=== PATIENT | female | born 1945 | race Caucasian/White ===

== ENCOUNTER 2023-03-09 11:02 | Outpatient (CLI) | payer MEDICARE, SELFPAY ==
[2023-03-09 11:18] LABS: Basophils Absolute Auto 0.1 K/mm3 (0.0-0.1); Basophils Percent Auto 0.5 % (0.2-1.2); Eosinophils Absolute Auto 0.3 K/mm3 (0-0.3); Eosinophils Percent Auto 3.7 % (0-4.4); Hematocrit 31.4 % (37.0-47.0); Hemoglobin 9.3 g/dL (12.0-15.0); Immature Granulocyte Absolute 0.04 K/mm3 (0.00-0.031); Immature Granulocyte Percent A 0.4 % (0-0.5); Lymphocytes Absolute Auto 0.82 K/mm3 (0.9-3.2); Lymphocytes Percent Auto 8.9 % (18.3-44.2); Mean Corpuscular HGB Conc 29.6 g/dl (32-36); Mean Corpuscular Hemoglobin 24.2 pg (26-34); Mean Corpuscular Volume 81.8 fl (80-100); Mean Platelet Volume 9.3 fl (7.4-10.4); Monocytes Absolute Auto 0.4 K/mm3 (0.1-0.6); Neutrophils Absolute Auto 7.6 K/mm3 (1.3-6.7); Neutrophils Percent Auto 82.5 % (45.5-73.1); Platelet Count Result 431 k/mm3 (150-375); Red Blood Count 3.84 M/mm3 (4.2-5.4); White Blood Count 9.2 K/mm3 (4.5-10.0)
[2023-03-09 11:24] LABS: Anisocytosis 1+ (NORMAL); Microcytosis 1+ (NORMAL); Platelet Estimate Increased (Adequate); Schistocytes None Seen (NORMAL)
[2023-03-09 13:03] LABS: Alanine Aminotransferase 17 U/L (6-35); Alkaline Phosphatase 96 U/L (38-126); Anion Gap 10 mmol/L (8-16); Aspartate Amino Transferase 25 U/L (14-36); Bilirubin,Total 2.6 mg/dL (0.2-1.3); Blood Urea Nitrogen 26 mg/dL (7-17); Calcium 9.2 mg/dL (8.4-10.2); Carbon Dioxide 28 mmol/L (22-30); Chloride 100 mmol/L (98-107); Estimated Glomerular Filt Rate 60; Glucose 183 mg/dL (65-110); Potassium 3.5 mmol/L (3.4-5.0); Sodium 138 mmol/L (137-145)
[2023-03-12 07:45] LABS: CA 15-3 23 U/mL (<32)
== END 2023-03-09 11:03 | disposition home or self-care (01) ==
LOC: ANHLAB 11:04
PROVIDERS: Visit Provider Internal Medicine Hematology & Oncology
DX: C50.919 Malignant neoplasm of unspecified site of unspecified female breast (principal); Z17.0 Estrogen receptor positive status [ER+]
CPT/HCPCS: 36415; 80053; 85025; 86300

== ENCOUNTER 2023-03-16 07:07 | Outpatient (CLI) | payer MEDICARE, SELFPAY ==
--- NOTE | ~2023-03-16 | NM_ITS ---
EXAMINATION: NM bone scan whole body DATE: 03/16/2023 11:20 INDICATION: Breast cancer TECHNIQUE: 26.2 mCi Tc-99m HDP was administered intravenously. Delayed whole-body scintigrams were o btained. COMPARISON: CT chest, abdomen and pelvis dated 03/16/2023 FINDINGS: Mild likely degenerative joint centered uptake at the bilateral acromioclavicular joints. Mild likely enthesopathic uptake at the bilateral anterior tibial tuberosities. No other suspicious foci of abno rmal bone uptake to suggest metastatic disease. Mild lower thoracic dextrocurvature. There is excrete d activity at 8 prominent left extrarenal pelvis. IMPRESSION: 1. No lesion suspicious for osseous metastatic disease. Reviewed, dictated and finalized at location A. UTIVE DIRECTOR [employer]
--- NOTE | ~2023-03-16 | CT_ITS ---
Clinical Indication: Breast cancer CT Scan of the Chest, Abdomen, and Pelvis with Contrast: Technique: Contiguous sections were acquired throughout the chest, abdomen, and pelvis after intraven ous administration of 100 cc of Omnipaque 350. Dose reduction technique was used on this scan by uti lizing automated exposure control and iterative reconstruction technique. The dose-length product (DL P) was 483.66 mGy-cm. Findings: There is right paratracheal lymphadenopathy, largest node measuring up to approximately 1.9 x 1.6 cm. Minimally prominent AP window lymph nodes are present. Mildly prominent subcarinal node pr esent. No pericardial effusion. No aortic aneurysm or dissection seen. No large central pulmonary emb olus. Minimal bilateral pleural effusions are present. There is mild bibasilar interstitial thickening, and possible minimal groundglass opacification the l ungs. The liver, spleen, pancreas, gallbladder, adrenals and kidneys are within normal limits. There are at herosclerotic calcifications of the aorta. No lymphadenopathy. No bowel obstruction or bowel wall thickening. There is no evidence to suggest acute appendicitis. Urinary bladder is unremarkable. No pelvic mass evident. Sclerotic lesion present in the L3 vertebral body. Additional sclerotic lesion present in the intertrochanteric region of the proximal left femur with a more chondroid appearance. Impression: Mediastinal lymphadenopathy, as above, suspicious for metastatic disease given history, until proven otherwise. Sclerotic lesion in the L3 vertebral body, suspicious for osseous metastasis. Additional lesion at the intertrochanteric region of the proximal left ureter, more suggestive a letitia droid lesion, such as enchondroma. Small bilateral pleural effusions with probable minimal pulmonary edema. Reviewed, dictated and finalized at [facility]. ING SUPERVISOR Impression: Mediastinal lymphadenopathy, as above, suspicious for metastatic disease given history, until proven otherwise. Sclerotic lesion in the L3 vertebral body, suspicious for osseous metastasis. Additional lesion at the intertrochanteric region of the proximal left ureter, more suggestive a chondroid lesion, such as enchondroma. Small bilateral pleural effusions with probable minimal pulmonary edema.
== END 2023-03-16 07:08 | disposition home or self-care (01) ==
PROVIDERS: Visit Provider Internal Medicine Hematology & Oncology
DX: C50.919 Malignant neoplasm of unspecified site of unspecified female breast (principal); Z17.0 Estrogen receptor positive status [ER+]; J90 Pleural effusion, not elsewhere classified; R91.8 Other nonspecific abnormal finding of lung field
CPT/HCPCS: 71260; 74177; 78306; A9503; Q9967

== ENCOUNTER 2023-03-23 12:35 | Outpatient (CLI) | payer MEDICARE, SELFPAY ==
[2023-03-23 15:41] LABS: Iron 36 ug/dL (37-170)
[2023-03-23 15:51] LABS: Percent Iron Saturation 8 % (20-50)
[2023-03-23 16:11] LABS: Lactate Dehydrogenase 343 U/L (120-246)
[2023-03-23 17:03] LABS: Folic Acid 7.9 ng/mL (2.76->20)
[2023-03-26 01:28] LABS: Methylmalonic Acid 271 nmol/L (87-318)
[2023-03-30 12:52] LABS: Soluble Transferrin Receptor 6.52 mg/L (0.76-1.76)
== END 2023-03-23 12:36 | disposition home or self-care (01) ==
LOC: ANHLAB 12:36
PROVIDERS: Visit Provider Internal Medicine Hematology & Oncology
DX: D64.9 Anemia, unspecified (principal)
CPT/HCPCS: 36415; 82607; 82728; 82746; 83540; 83550; 83615; 83921; 84238

== ENCOUNTER 2023-04-15 10:48 | Outpatient (CLI) | payer MEDICARE, SELFPAY ==
[2023-04-15 13:05] LABS: Alanine Aminotransferase 17 U/L (6-35); Albumin Level 3.9 g/dL (3.5-5.1); Alkaline Phosphatase 89 U/L (38-126); Anion Gap 7 mmol/L (8-16); Aspartate Amino Transferase 33 U/L (14-36); Bilirubin,Total 1.6 mg/dL (0.2-1.3); Blood Urea Nitrogen 24 mg/dL (7-17); Calcium 9.3 mg/dL (8.4-10.2); Carbon Dioxide 27 mmol/L (22-30); Chloride 98 mmol/L (98-107); Estimated Glomerular Filt Rate 60; Glucose 160 mg/dL (65-110); Potassium 3.9 mmol/L (3.4-5.0); Sodium 132 mmol/L (137-145)
== END 2023-04-15 10:49 | disposition home or self-care (01) ==
LOC: ANHGOSHLAB 10:50
PROVIDERS: PCP Nurse Practitioner; Visit Provider Family Medicine
DX: R14.0 Abdominal distension (gaseous) (principal); R22.43 Localized swelling, mass and lump, lower limb, bilateral; Z79.899 Other long term (current) drug therapy
CPT/HCPCS: 36415; 80053

== ENCOUNTER 2023-04-15 11:36 | Outpatient (CLI) | payer MEDICARE, SELFPAY ==
--- NOTE | ~2023-04-15 | US_ITS ---
EXAMINATION: US venous doppler [facility] DATE: 04/15/2023 12:53 INDICATION: Lower limb swelling TECHNIQUE: De Luna scale images without and with compression and Doppler images of the bilateral lower e xtremity veins were obtained. COMPARISON: None FINDINGS: The visualized portions of the right common femoral vein, profunda femoral vein, femoral vein, poplit eal vein, peroneal trunk, posterior tibial veins, and greater saphenous vein are patent. Portions of the proximal right posterior tibial vein and peroneal veins are not visualized due to edema. The left common femoral vein, profunda femoral vein, femoral vein, popliteal vein, peroneal trunk, po sterior tibial veins, and greater saphenous vein are patent. IMPRESSION: 1. Patent bilateral lower extremity veins. No evidence of deep venous thrombosis. Reviewed, dictated and finalized at location B. STAPLER IMPRESSION: 1. Patent bilateral lower extremity veins. No evidence of deep venous thrombosi s.
== END 2023-04-15 11:37 | disposition home or self-care (01) ==
LOC: ANHIMG 11:36
PROVIDERS: PCP Nurse Practitioner; Visit Provider Family Medicine
DX: R22.43 Localized swelling, mass and lump, lower limb, bilateral (principal); M79.604 Pain in right leg; M79.605 Pain in left leg
CPT/HCPCS: 36415; 80053; 93970

== ENCOUNTER 2023-04-21 13:39 | Outpatient (CLI) | payer MEDICARE, SELFPAY ==
--- NOTE | ~2023-04-21 | CT_ITS ---
EXAMINATION: CT abdomen pelvis wo con DATE: 04/21/2023 14:05 INDICATION: Gaseous abdominal distention TECHNIQUE: Computed tomography (CT) of the abdomen and pelvis was performed without intravenous contr ast. Automated exposure control and iterative reconstruction technique were employed. The dose-length product was 935.67 mGy-cm. COMPARISON: CT and bone scan dated 03/16/2023 FINDINGS: Small bilateral posterior layering pleural effusions, right greater than left. Groundglass opacities and smooth septal line thickening at the bilateral lung bases consistent with mild pulmonary edema. C ardiomegaly with atherosclerotic coronary artery calcific lesions. Venous sternotomy and changes of p rior aortic valve and mitral valve repairs. Retained epicardial pacemaker leads. No pericardial effus ion. Extensive body wall edema. Small amount of ascites predominantly perisplenic and below the left hemid iaphragm. There are couple small calcified gallstones in the dependent aspect of the partially decomp ressed gallbladder. There is low-density edematous gallbladder wall thickening versus small amount of pericholecystic fluid but no dilation of the gallbladder to more specifically suggest acute cholecys titis. Spleen, pancreas, bilateral adrenal glands and right kidney are normal. There is a mildly dila wilda left external pelvis but without dilation of the calyces to suggest hydronephrosis. No evident ur olithiasis. Moderate amount of stool scattered throughout the colon. No dilated bowel to suggest obst ruction. Bladder is normal. Uterus and bilateral adnexa are unremarkable. Severe lower lumbar spondylosis. Indeterminate 1.5 cm sclerotic lesion in the L3 vertebral body. More poorly defined approximately 2.4 x 2.1 x 1.4 similar sclerotic lesion at the intratrochanteric proxi mal left femur with ring and arc-like configuration of the sclerosis suggesting chondroid matrix in t he setting of enchondroma. There is a tiny dense sclerotic bone islands at the right femoral head. IMPRESSION: 1. Likely congestive heart failure with cardiomegaly, mild pulmonary edema or lung bases, diffuse bod y wall edema, small bilateral pleural effusions and small amount of ascites. 2. Cholelithiasis with mild gallbladder wall thickening versus small amount of pericholecystic fluid which in the absence of dilation the gallbladder is more likely related to congestive heart failure t vaca acute cholecystitis. Correlate for Herr and if clinically indicated could consider HIDA scan fo r further evaluation. 3. Indeterminate but likely benign sclerotic lesions at L3 and at the intratrochanteric left femur, t he latter with appearance suggestive of an enchondroma in both without uptake to suggest malignancy o n prior bone scan. Reviewed, dictated and finalized at location L. IMPRESSION: 1. Likely congestive heart failure with cardiomegaly, mild pulmonary edema or l kevin bases, diffuse body wall edema, small bilateral pleural effusions and small amount of ascites. 2. Cholelithiasis with mild gallbladder wall thickening versus small amount of pericholecystic fluid which in the absence of dilation the gallbladder is more likely related to congestive heart failure than acute cholecystitis. Correlate for Herr and if clinically indicated could consider HIDA scan for further js luation. 3. Indeterminate but likely benign sclerotic lesions at L3 and at the intratroc hanteric left femur, the latter with appearance suggestive of an enchondroma in both without uptake to suggest malignancy on prior bone scan.
[2023-04-21 16:33] LABS: Sodium 130 mmol/L (137-145)
[2023-04-21 16:44] LABS: Anion Gap 8 mmol/L (8-16); Blood Urea Nitrogen 29 mg/dL (7-17); Calcium 8.9 mg/dL (8.4-10.2); Carbon Dioxide 25 mmol/L (22-30); Chloride 97 mmol/L (98-107); Estimated Glomerular Filt Rate 53; Glucose 171 mg/dL (65-110); Potassium 3.8 mmol/L (3.4-5.0)
== END 2023-04-21 13:40 | disposition home or self-care (01) ==
PROVIDERS: PCP Family Medicine; Visit Provider Nurse Practitioner
DX: R14.0 Abdominal distension (gaseous) (principal); E87.1 Hypo-osmolality and hyponatremia; K80.20 Calculus of gallbladder without cholecystitis without obstruction
CPT/HCPCS: 36415; 74176; 80048

== ENCOUNTER 2023-04-26 12:29 | Inpatient (IN) | payer MEDICARE, SELFPAY ==
[2023-04-26] VITALS (57 sets, daily range): BP systolic 93–117; BP diastolic 64–94; PULSE 0–125; RESP 13–96; TEMP 36.3; O2SAT 91–100; BMI 32.0
--- NOTE | ~2023-04-26 | XR_ITS ---
XR chest 2V DATE: 04/26/2023 14:31 INDICATION: Shortness of breath TECHNIQUE: AP and lateral views COMPARISON: March 16, 2023 CTA chest abdomen pelvis FINDINGS: Cardiomegaly. Status post sternotomy. Aortic and mitral valve replacements. Small bilateral pleural effusions. Mild prominence of the fissures suggesting subpleural edema. Kerle y B-lines are suggested, which would be compatible with pulmonary interstitial edema. There is minimal infiltrate or atelectasis at the lung bases primarily. No pneumothorax. Osteopenia. Dextroscoliosis of the thoracolumbar spine. IMPRESSION: Mild congestive heart failure including subpleural and pulmonary interstitial edema, smal l pleural effusions Status post sternotomy and aortic and mitral valve replacements Reviewed, dictated and finalized at location L. IMPRESSION: Mild congestive heart failure including subpleural and pulmonary in terstitial edema, small pleural effusions Status post sternotomy and aortic and mitral valve replacements
--- NOTE | ~2023-04-26 | CT_ITS ---
EXAMINATION: CT brain wo con DATE: 04/26/2023 22:59 INDICATION: cognitive decline, breast CA . TECHNIQUE: Computed tomography (CT) of the head was performed without intravenous contrast. The mA wa s adjusted according to patient size. Iterative reconstruction technique was employed. The dose-lengt h product was 1135.00 mGy-cm. COMPARISON: None. FINDINGS: Motion artifact present which persisted in repeated imaging attempts. The superior portion of the sku ll vertex is excluded from the [id number]. No acute intracranial hemorrhage or extra-axial fluid collection. No hydrocephalus, mass, or herniation. No acute ischemic infarct. Unremarkable dural venous sinus attenuation. No acute osseous abnormality. The aerated spaces are clear. Moderate atrophy and chronic white matter change. Atherosclerotic intracranial calcification. Bilater al lens replacements. IMPRESSION: No acute intracranial process. Reviewed, dictated and finalized at location K.
--- NOTE | 2023-04-26 13:49 | ECG_ITS ---
Measurements Intervals [place] Rate: 119 P: DC: 0 QRS: -31 QRSD: 85 T: 25 QT: 328 QTc: 462 Interpretive Statements ATRIAL FIBRILLATION WITH RAPID VENTRICULAR RESPONSE LEFT AXIS DEVIATION DELAYED PRECORDIAL R/S TRANSITION BORDERLINE ST-T WAVE ABNORMALITY- DIFFUSE LEADS BASELINE WANDER- I, II, III, AVR, AVL, AVF ABNORMAL ECG NO PREVIOUS ECG AVAILABLE FOR COMPARISON Electronically Signed On 04-26-2023 14:32:12 CDT by Krishna Arteaga D.O.
[2023-04-26 14:21] LABS: Basophils Absolute Auto 0.1 K/mm3 (0.0-0.1); Basophils Percent Auto 1.5 % (0.2-1.2); Eosinophils Absolute Auto 0.1 K/mm3 (0-0.3); Eosinophils Percent Auto 2.2 % (0-4.4); Hematocrit 38.5 % (37.0-47.0); Hemoglobin 11.7 g/dL (12.0-15.0); Immature Granulocyte Absolute 0.01 K/mm3 (0.00-0.031); Immature Granulocyte Percent A 0.2 % (0-0.5); Lymphocytes Absolute Auto 0.86 K/mm3 (0.9-3.2); Lymphocytes Percent Auto 18.9 % (18.3-44.2); Mean Corpuscular HGB Conc 30.4 g/dl (32-36); Mean Corpuscular Hemoglobin 26.1 pg (26-34); Mean Corpuscular Volume 85.9 fl (80-100); Mean Platelet Volume 10.1 fl (7.4-10.4); Monocytes Absolute Auto 0.3 K/mm3 (0.1-0.6); Monocytes Percent Auto 6.4 % (2.6-8.5); Neutrophils Absolute Auto 3.2 K/mm3 (1.3-6.7); Neutrophils Percent Auto 70.8 % (45.5-73.1); Platelet Count Result 207 k/mm3 (150-375); Red Blood Count 4.48 M/mm3 (4.2-5.4); Red Cell Distribution Width 27.1 % (11.5-14.5); White Blood Count 4.6 K/mm3 (4.5-10.0)
[2023-04-26 14:33] LABS: Alanine Aminotransferase 16 U/L (6-35); Albumin Level 3.6 g/dL (3.5-5.1); Alkaline Phosphatase 85 U/L (38-126); Anion Gap 9 mmol/L (8-16); Aspartate Amino Transferase 25 U/L (14-36); Bilirubin,Total 1.6 mg/dL (0.2-1.3); Blood Urea Nitrogen 27 mg/dL (7-17); Calcium 8.8 mg/dL (8.4-10.2); Carbon Dioxide 26 mmol/L (22-30); Chloride 97 mmol/L (98-107); Estimated CRCL calculation 35 ml/min; Estimated Glomerular Filt Rate 48; Glucose 179 mg/dL (65-110); Potassium 3.7 mmol/L (3.4-5.0); Sodium 132 mmol/L (137-145)
[2023-04-26 14:34] LABS: Partial Thromboplastin Time 43.4 Seconds (22.3-36.8); Prothrombin Time 24.5 Seconds (11.1-14.7)
[2023-04-26 14:44] LABS: NT Pro B Type Natriuretic Pept 13600 pg/mL (19.9-100); Troponin I 0.024 ng/mL (0.000-0.034)
[2023-04-26 14:46] LABS: Anisocytosis 2+; Platelet Estimate Adequate (Adequate); Poikilocytosis 1+; Schistocytes Rare
--- NOTE | 2023-04-26 15:17 | ED.SOB ---
HPI - SOB/Dyspnea General Chief Complaint: Shortness of Breath/Dyspnea Stated Complaint: short of breath, fluid build up Time Seen by Provider: 04/26/23 13:29 History of Present Illness HPI Narrative: patient is a 77-year-old female with a history of AFib on Eliquis, CHF, mitral and aortic valve replacement, hypothyroidism, diabetes presenting with shortness of breath. Patient's niece is at bedside and helps with the history. States that she has been increasingly short of breath especially with exertion. She has been gaining we in retaining fluid. Her PCP recently started her on an increased dose of Lasix But she continues to have swollen legs. States that she has also had a dry cough which is just started some diffuse mild chest discomfort. Denies chest pain, lightheadedness, fevers or chills, abdominal pain, nausea vomiting, diarrhea, dysuria. Related Data Home Medications Medication Instructions Recorded Confirmed glipizide 10 mg tablet 15 mg PO DAILY 01/05/23 04/26/23 ferrous sulfate 325 mg (65 mg 325 mg PO DAILY 04/07/23 04/26/23 iron) tablet (Feosol) loratadine 10 mg tablet (Claritin) 10 mg PO DAILY PRN Allergy Symptoms 04/07/23 04/26/23 ribociclib 200 mg/day (200 mg x 1) See Rx Instructions .Route .COMPLEX 04/07/23 04/26/23 and letrozole 2.5 mg tablet apixaban 5 mg tablet 5 mg PO DAILY 04/26/23 04/26/23 aspirin 81 mg chewable tablet 81 mg PO PRN PRN Chest Pain 04/26/23 04/26/23 (Aspirin Childrens) fluticasone propionate 50 1 spray intranasal Q12HR PRN 04/26/23 04/26/23 mcg/actuation nasal Congestion spray,suspension Allergies Allergy/AdvReac Type Severity Reaction Status Date / Time codeine Allergy Unknown Hallucinati Verified 04/26/23 13:29 ng doxycycline Allergy Unknown Unknown Verified 04/26/23 13:29 trimethobenzamide Allergy Unknown Nausea and Verified 04/26/23 13:29 Vomiting Review of Systems Review of Systems: All systems reviewed & are unremarkable except as noted in HPI and below PMFSH Past Medical History Medical History (Updated 04/29/23 @ 22:11 by Sara Alejandro MD) Breast cancer 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 Patient declined surgery. She has been treated with letrozole. She was seen as a new patient by oncologist Dr. Justin Crisostomo on 03/09/2023 who rec she resume the letrozole, which had been stopped 09/2022 for unknown reasons. Chronic anticoagulation Cognitive dysfunction Hyperlipidemia Hypertension Paroxysmal atrial fibrillation Type 2 diabetes mellitus Valvular heart disease Surgical History Surgical History (Updated 04/27/23 @ 14:58 by Yumiko Amos MD) History of aortic valve replacement with bioprosthetic valve History of left atrial appendage closure History of mitral valve replacement with bioprosthetic valve Family History Family History Mother Heart disease Father Cancer Sibling Cancer Social History Social History (Updated 04/27/23 @ 14:53 by Yumiko Amos MD) Social History: . No children. 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 Healthcare power of contracts attorney: Camilo Rosa, niece. Code status: Full code. Smoking status: Never smoker Second hand tobacco smoke exposure: No Alcohol intake: never Substance use: never Substance use type: does not use Do You Feel Safe in your Home?: Yes Lack of Transportation: No Lack of Food: Never True Current Housing: I Have Housing Concerned About Future Housing: No Difficulty Paying Gas/Electric Bills: No Difficulty Paying for Meds: No Currently Unemployed: No Education: Bachelor's Degree Difficulty w/ Childcare or Family Care: No Additional living arrangements comments: Currently staying with [id number] in [place]. She has no children. 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
[2023-04-26] MEDS: METOPROLOL TARTRATE INJ 5 MG/5 ML VIAL IV PUSH (15:25)
--- NOTE | 2023-04-26 22:12 | PM.IMHP ---
H&P: HPI History of Present Illness Date/Time: 04/26/23 16:45 Chief Complaint: Shortness of breath and swelling. Narrative: This is a pleasant 77-year-old female paroxysmal atrial fibrillation on chronic anticoagulation, valvular heart disease status post bioprosthetic aortic and mitral valve replacements, stage IV breast cancer, iron deficiency anemia, type 2 diabetes mellitus, and hypothyroidism who presented to the emergency department accompanied by her niece (Camilo Rosa, POA) with complaints of shortness of breath and swelling. Cmailo provides majority of the following history as the patient is a poor historian. The patient lives in [place] and has always been very private. Her brother last fall at which time family members noted that the patient did not seem to be caring for herself and seemed to be ignoring her health conditions. They moved her to [place] and are attempting to get her into an assisted living facility but she is currently living with her [id number]. Over the last month and a half for so the patient has gained approximately 20 lb and she has significant lower extremity edema which is now extending up into the abdomen. She is getting short of breath with everyday activities around the home and family members note that she has been getting up 3 or 4 times at night the last several days, presumably due to orthopnea. She was previously evaluated by her primary care provider couple of weeks ago at which time she had bilateral lower extremity venous Doppler ultrasounds (negative for DVT) and CT of the abdomen and pelvis which showed diffuse body wall edema, pleural effusions, cardiomegaly, and pulmonary edema. Her Lasix dose was doubled however she continues to have increasing shortness of breath and was brought in for evaluation. The patient has no complaints. She denies headache, fever, chills, sweats, chest pain, pleuritic pain, palpitations, nausea, vomiting, diarrhea, dysuria, and calf pain. In the ED: She was afebrile on arrival. She has been in atrial fibrillation with rates in the 90s to low 100s. Labs were significant for a hemoglobin of 11.7, INR 2.0, sodium 132, chloride 97, BUN 27, creatinine 1.10, glucose 179, total bilirubin 1.6, proBNP 22220. Chest x-ray showed mild congestive heart failure. She was given 5 mg IV metoprolol tartrate and she is being admitted in this setting for further treatment. Review of Systems Review of Systems: Twelve systems were reviewed but are limited as she has evidence of cognitive dysfunction and she is a poor historian. She stated no to every question asked of her. [facility] Past Medical History Medical History (Updated 04/26/23 @ 22:34 by Sakshi Adamson PA-C) Breast cancer Chronic anticoagulation Cognitive dysfunction Hyperlipidemia Hypertension Paroxysmal atrial fibrillation Type 2 diabetes mellitus Surgical History Surgical History (Updated 04/26/23 @ 22:30 by Sakshi Adamson PA-C) History of aortic valve replacement with bioprosthetic valve History of left atrial appendage closure History of mitral valve replacement with bioprosthetic valve Family History Family History Mother Heart disease Father Cancer Sibling Cancer Social History Social History (Updated 04/26/23 @ 22:31 by Sakshi Adamson PA-C) Social History: Healthcare power of watch technician: nilesh Danielle. Code status: Full code. Smoking status: Never smoker Second hand tobacco smoke exposure: Yes Alcohol intake: never Substance use: never Substance use type: does not use Additional living arrangements comments: Currently staying with [id number] in [place]. She has no children. 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 Spiritual care concerns: No Meds Home Medications and Allergies Home Medications Medication Instructions Recorded Confirme
--- NOTE | 2023-04-26 23:10 | ADMGEN ---
This patient, Charito Rey, was admitted to IMU Room 206-01. Patient/family oriented to hospital policies and general routines including ID bracelet, bed and alarms, visiting hours, pain management, procedures, bathroom and other care routines, personal items, smoking policy, room service/diet, and visiting hours. Information on how to activate the Rapid Response Team has been discussed. Patient/Family are encouraged to report perceived risks to care and to ask questions if they do not understand what they are told or what they should do.
[2023-04-27] VITALS (22 sets, daily range): BP systolic 96–152; BP diastolic 62–93; PULSE 78–124; RESP 18–22; TEMP 36.1–36.7; O2SAT 92–100
--- NOTE | 2023-04-27 | ECHO_ITS ---
Patient Info Name: Charito Rey Age: 77 years : 1945 Gender: Female Ht: 62 in Wt: 145 lbs BSA: 1.71 m2 HR: 106 bpm BP: 143 / 92 mmHg Heart Rhythm: Atrial Fibrillation Technical Quality: Fair Exam Date: 04/27/2023 10:39 AM Exam Location: Echo Lab Patient Status: Inpatient Admit Date: 04/26/2023 Staff Ordering Physician: Sakshi Adamson PA-C Glaze Sprayer: Sada Ramos RDCS Attending Provider: Jesús Cheung MD Referring Physician: Snow LIANG; Exam Type: CA echo dop color flow w con Study Info Indications - CHF Complete two-dimensional, color flow and Doppler transthoracic echocardiogram is performed with contrast to opacify the left ventricle and to improve the deliniation of the left ventricle endocardial borders. Contrast/Agitated Saline Contrast/Ag. Saline: Definity Amount: 2.00 ml Summary 1. Normal left ventricular size and thickness with moderate global hypokinesis. Visual ejection fraction is 40-45%, calculated 47%. Grade 2 diastolic dysfunction is present. 2. Moderate right ventricular enlargement and hypokinesis. 3. Left atrial chamber dimension is severely enlarged. 4. The bioprosthetic aortic valve appears normal. The V max is 1.4 M/S with an EMIR of 1.7-2.2 cm 2. No regurgitation seen. 5. The bioprosthetic mitral valve appears normal, with no stenosis. Trivial mitral regurgitation. 6. There is mild to moderate tricuspid valve regurgitation. 7. Moderate pulmonary hypertension, estimated pulmonary arterial systolic pressure is 57 mmHg. 8. Atrial fibrillation. Left Ventricle Left ventricular chamber dimension is normal. Left ventricular systolic function is moderately reduced, estimated at 40-45%. There is no increased left ventricular wall thickness. Left ventricular septal wall motion is normal. The left ventricular diastolic function is grade II diastolic dysfunction. Right Ventricle Right ventricular chamber dimension is moderately enlarged. Right ventricular systolic function is reduced. Left Atria Left atrial chamber dimension is severely enlarged. Right Atria Right atrial chamber dimension is normal. Aortic Valve The bioprosthetic aortic valve is trileaflet. There is no sclerosis of the bioprosthetic aortic valve leaflets. There is no bioprosthetic aortic valve stenosis. There is no regurgitation of the bioprosthetic aortic valve. Pulmonic Valve The pulmonic valve is normal. There is no pulmonic valve stenosis. There is no pulmonic regurgitation. Mitral Valve The bioprosthetic mitral valve leaflefts are Empty. There is no stenosis of the bioprosthetic mitral valve. There is trace regurgitation of the bioprosthetic mitral valve. Tricuspid Valve The tricuspid valve leaflets are normal. There is no significant tricuspid valve stenosis. There is mild to moderate tricuspid valve regurgitation. Moderate pulmonary hypertension, estimated pulmonary arterial systolic pressure is 57 mmHg. Pericardium/Pleural The pericardium appears normal. There is no pericardial effusion. Inferior Vena Cava Not well visualized inferior vena cava with >50% collapse upon inspiration consistent with Empty right atrial pressure, 10 mmHg. Aorta The aortic root size at the sinus of Valsalva is not well visualized. The prox ascending aorta size is normal. Left Ventricular Outflow Tract Name Value Normal
[2023-04-27 00:03] LABS: Hemoglobin A1C 7.2 % (<5.7)
[2023-04-27] MEDS: FUROSEMIDE INJ 40 MG/4 ML VIAL IV PUSH ×2 (00:45→09:56)
[2023-04-27] MEDS: traZODone HCL 50 MG TABLET PO ×2 (02:11→20:47)
[2023-04-27] MEDS: APIXABAN 5 MG TABLET PO ×3 (02:12→20:46)
[2023-04-27 05:11] LABS: Basophils Absolute Auto 0.1 K/mm3 (0.0-0.1); Basophils Percent Auto 0.8 % (0.2-1.2); Eosinophils Absolute Auto 0.1 K/mm3 (0-0.3); Eosinophils Percent Auto 0.8 % (0-4.4); Hematocrit 38.7 % (37.0-47.0); Hemoglobin 12.6 g/dL (12.0-15.0); Immature Granulocyte Absolute 0.02 K/mm3 (0.00-0.031); Immature Granulocyte Percent A 0.3 % (0-0.5); Lymphocytes Absolute Auto 0.85 K/mm3 (0.9-3.2); Lymphocytes Percent Auto 14.2 % (18.3-44.2); Mean Corpuscular HGB Conc 32.6 g/dl (32-36); Mean Corpuscular Hemoglobin 30.1 pg (26-34); Mean Corpuscular Volume 92.4 fl (80-100); Mean Platelet Volume 10.6 fl (7.4-10.4); Monocytes Absolute Auto 0.4 K/mm3 (0.1-0.6); Monocytes Percent Auto 5.9 % (2.6-8.5); Neutrophils Absolute Auto 4.7 K/mm3 (1.3-6.7); Platelet Count Result 209 k/mm3 (150-375); Red Blood Count 4.19 M/mm3 (4.2-5.4); Red Cell Distribution Width 29.8 % (11.5-14.5)
[2023-04-27 05:27] LABS: Alanine Aminotransferase 19 U/L (6-35); Albumin Level 3.8 g/dL (3.5-5.1); Alkaline Phosphatase 100 U/L (38-126); Anion Gap 8 mmol/L (8-16); Aspartate Amino Transferase 29 U/L (14-36); Bilirubin,Total 2.2 mg/dL (0.2-1.3); Blood Urea Nitrogen 25 mg/dL (7-17); Calcium 9.1 mg/dL (8.4-10.2); Carbon Dioxide 28 mmol/L (22-30); Chloride 97 mmol/L (98-107); Estimated CRCL calculation 39 ml/min; Estimated Glomerular Filt Rate 53; Glucose 133 mg/dL (65-110); Potassium 3.8 mmol/L (3.4-5.0); Sodium 133 mmol/L (137-145)
[2023-04-27] MEDS: LEVOTHYROXINE SODIUM 25 MCG TABLET PO (05:34)
[2023-04-27 05:39] LABS: Anisocytosis 1+; Hypochromasia 1+; Ovalocytes 1+; Platelet Estimate Adequate (Adequate); Poikilocytosis 1+; Schistocytes None Seen
[2023-04-27 08:53] LABS: Glucose Point of Care 173 mg/dl (65-105)
[2023-04-27] MEDS: METOPROLOL TARTRATE 25 MG TABLET PO ×2 (09:52→20:46)
[2023-04-27] MEDS: PRAVASTATIN SODIUM 20 MG TABLET PO (09:53)
[2023-04-27] MEDS: POTASSIUM CHLORIDE 20 MEQ ER TABLET PO (09:53)
[2023-04-27] MEDS: FERROUS SULFATE 325 MG TABLET DR BY MOUTH (09:53)
--- NOTE | 2023-04-27 10:30 | PM.CNCAR ---
Assessment and Plan Assessment and plan (1) Combined systolic and diastolic congestive heart failure: Code(s): I50.40 - Unspecified combined systolic (congestive) and diastolic (congestive) heart failure Status: Acute Assessment and Plan: Pt presents w/ acute on chronic systolic and diastolic CHF, and moderate LV dysfunction, EF 40-45%. She had normal LV function on discharge from [facility] in December, when she was discharged on treatment for her AFib. I suspect the LV dysfunction as a tachycardia induced cardiomyopathy due to uncontrolled atrial fibrillation. She does not seem to be diuresing well so I will increase her diuretics, and controller AFib rate better. --increase furosemide to 60 mg IV push b.i.d. --daily BMP --increased beta-melina as tolerated --at other CHF meds as BP tolerates. (2) Atrial fibrillation with rapid ventricular response: Code(s): I48.91 - Unspecified atrial fibrillation Status: Acute Assessment and Plan: AFib diagnosed in November, which appears persistent. As mentioned above she was discharged from [place] after surgery on metoprolol and diltiazem but that seems to have been discontinued she is at some point. She now has AFib RVR. --continue Eliquis --metoprolol 5 mg IV push q.4 hours --may need IV amiodarone or diltiazem for heart rate control if this does not help. (3) History of mitral valve replacement with bioprosthetic valve: Code(s): Z95.3 - Presence of xenogenic heart valve Status: Acute Assessment and Plan: History of bioprosthetic mitral valve for mitral stenosis, normal function by echo. (4) History of aortic valve replacement with bioprosthetic valve: Code(s): Z95.3 - Presence of xenogenic heart valve Status: Acute Assessment and Plan: History of bioprosthetic aortic valve replacement, normal function. History of Present Illness History of Present Illness Consult date/time: 04/27/23 10:30 Reason For Visit: Afib RVR Narrative: Charito Rey is a 77 y.o. female whom we were asked to see by KY Mathew, for advice and opinion regarding her AFib RVR and CHF exacerbation, in consultation. She has a history of valvular heart disease, persistent atrial fibrillation, diabetes, stage IV breast cancer (diagnosed in 2022), iron deficiency anemia. The patient was admitted to [facility] with COVID in November 2022 and found to have atrial fibrillation, severe mitral stenosis as well as moderate aortic stenosis. She had transient complete heart block intraoperatively. She underwent mitral and aortic valve replacement, and ligation of the left atrial appendage, at [facility] in December 2022. NICOLASA showed normal LV function, mild RV enlargement and hypokinesis and good valve function. TTE showed normal LV size and function, EF 55-60% with normal RV function, moderate left atrial enlargement, normal bioprosthetic aortic and mitral valve replacements, mild tricuspid regurgitation and mild pulmonary hypertension. She was discharged from [facility] 01/05/2023 with persistent atrial fibrillation, taking diltiazem 120 mg daily and metoprolol 50 mg b.i.d. but on arrival to our rehab, these medications were not listed. She was discharged from our rehab unit on February 03, 2023. Ms. Prasanna kaufman came to the emergency room on 04/26/2023 with increasing edema and shortness of breath with and PND. She has gained 20 lb. Her Lasix dose was transiently doubled without improvement. LE doppler as OPT was neg for DVT. She was admitted with CHF and AFib RVR. Heart rate has been 115-120 through the night she was started furosemide 40 mg IV push b.i.d. She was given a dose of IV metoprolol and started on metoprolol tartrate 25 mg b.i.d. Blood pressures been stable and she is on room air. Patient states she is not making urine even with furosemide g IV push b.i.d.. Patient is a fuzzy historian, unclear about dates and nonspecific. Some of hx
[2023-04-27] MEDS: PERFLUTREN LIPID MICROSPHERES 1.5 ML VIAL DILUTED TO 10 ML TOTAL VOLUME IV PUSH (11:15)
--- NOTE | 2023-04-27 11:39 | IVDEFINITY ---
Prior to administration of IV Definity the patient was educated on the risks and benefits of the imaging enhancing agent including potential adverse side effects. The patient verbalized understanding. Allergies were verified. No exclusion criteria were identified and at least one of the following inclusion criteria were met: 1) physician request, 2) patient technically difficult to image (per the [place] [employer] guidelines of two or more segments not discernable within the apical view), or 3) questionable left ventricular function. ?
[2023-04-27 12:09] LABS: Glucose Point of Care 179 mg/dl (65-105)
--- NOTE | 2023-04-27 15:15 | PM.IMPN ---
Progress Note: A&P Assessment and Plan (1) History of mitral valve replacement with bioprosthetic valve: Code(s): Z95.3 - Presence of xenogenic heart valve Status: Acute (2) Combined systolic and diastolic congestive heart failure: Code(s): I50.40 - Unspecified combined systolic (congestive) and diastolic (congestive) heart failure Status: Acute (3) Renal insufficiency: Code(s): N28.9 - Disorder of kidney and ureter, unspecified Status: Acute (4) Atrial fibrillation with rapid ventricular response: Code(s): I48.91 - Unspecified atrial fibrillation Status: Acute Plan 77-year-old female paroxysmal atrial fibrillation on chronic anticoagulation, valvular heart disease status post bioprosthetic aortic and mitral valve replacements, stage IV breast cancer, iron deficiency anemia, type 2 diabetes mellitus, and hypothyroidism who presented to the emergency department?with worsening SOB, leg swelling 1. Acute on chronic CHF exacerbation: Continue with IV diuresis Strict in's and out's Daily weight Await Cardiology input 2. AFib with RVR: Will start on low-dose metoprolol Continue with Eliquis Await echocardiogram 3. Diabetes mellitus: Hold glipizide Blood glucose check t.i.d. a.c. HS Continue with sliding scale insulin 4.? delirium versus mild cognitive impairment: Will monitor closely 5. DVT prophylaxis on Eliquis 6. Code status: Full 7. Disposition: Pending improvement Time Spent With Patient Time with patient: 15 - 25 minutes Subjective Date/time seen: 04/27/23 15:15 Interval history: No acute events overnight Review of Systems Review of Systems: . All systems reviewed & are unremarkable except as noted in HPI and below Exam Narrative: General: Chronically ill-appearing female HEENT: PERRL, EOMI. Sclera anicteric. Oral mucosa moist. Neck: Supple. No JVD. Respiratory: Respirations are nonlabored and she is speaking in full sentences. She does appear to get a bit winded when adjusting herself in bed but that is brief. Crackles heard at both bases. Cardiovascular: Irregularly irregular rate and rhythm. Systolic murmurs heard at the apex and upper sternal border. Gastrointestinal: Abdomen is protuberant and nontender with positive bowel sounds. Skin: Warm and dry. Faint erythema of the lower legs due to significant swelling. Extremities: No cyanosis or clubbing. Tense pitting edema to the thighs bilaterally. No palpable knots or cords. Negative Ulisses sign bilaterally. Peripheral pulses palpable. Neurological: Alert and oriented x1. Cranial nerves 2-12 are grossly intact. Speech is clear. No facial asymmetry. No gross focal deficits to casual conversation. Psychiatric:calm. Objective Data Vital Signs Vital Signs: Vital Signs - 24 hr 04/26/23 15:25 04/26/23 15:46 04/26/23 15:47 Temperature Pulse Rate 125 H Respiratory Rate 96 H Blood Pressure 108/84 Pulse Oximetry 100 95 Oxygen Delivery 04/26/23 16:00 04/26/23 16:01 04/26/23 16:15 Temperature Pulse Rate Respiratory Rate Blood Pressure Pulse Oximetry 94 97 99 Oxygen Delivery 04/26/23 16:16 04/26/23 16:30 04/26/23 16:31 Temperature Pulse Rate 107 H 89 Respiratory Rate 28 H Blood Pressure 104/75 100/80 Pulse Oximetry 94 91 97 Oxygen Delivery 04/26/23 16:45 04/26/23 16:46 04/26/23 17:00 Temperature Pulse Rate 99 103 H 119 H Respiratory Rate 37 H 34 H Blood Pressure 117/85 Pulse Oximetry 97 97 96 Oxygen Delivery 04/26/23 17:53 04/26/23 18:00 04/26/23 18:15 Temperature Pulse Rate 114 H 120 H 111 H Respiratory Rate 17 18 16 Blood Pressure Pulse Oximetry Oxygen Delivery 04/26/23 18:30 04/26/23 18:43 04/26/23 18:45 Temperature Pulse Rate 96 116 H 104 H Respiratory Rate 13 30 H Blood Pressure 97/81 L Pulse Oximetry 96 Oxygen Delivery 04/26/23 18:46 04/26/23 18:47
[2023-04-27] MEDS: METOPROLOL TARTRATE INJ 5 MG/5 ML VIAL IV PUSH ×2 (18:17→20:47)
[2023-04-27] MEDS: FUROSEMIDE INJ 40 MG/4 ML VIAL 60 MG IV PUSH (18:18)
[2023-04-27 18:34] LABS: Glucose Point of Care 149 mg/dl (65-105)
[2023-04-27] MEDS: ACETAMINOPHEN 500 MG TABLET 1000 MG PO (20:46)
[2023-04-27 23:49] LABS: Glucose Point of Care 157 mg/dl (65-105)
[2023-04-28] VITALS (18 sets, daily range): BP systolic 103–125; BP diastolic 68–78; PULSE 73–116; RESP 16–24; TEMP 36.1–36.4; O2SAT 91–100
[2023-04-28] MEDS: METOPROLOL TARTRATE INJ 5 MG/5 ML VIAL IV PUSH ×3 (00:34→09:14)
[2023-04-28 05:10] LABS: Basophils Absolute Auto 0.1 K/mm3 (0.0-0.1); Basophils Percent Auto 1.3 % (0.2-1.2); Eosinophils Absolute Auto 0.2 K/mm3 (0-0.3); Eosinophils Percent Auto 4.2 % (0-4.4); Hematocrit 35.7 % (37.0-47.0); Hemoglobin 11.8 g/dL (12.0-15.0); Immature Granulocyte Absolute 0.02 K/mm3 (0.00-0.031); Immature Granulocyte Percent A 0.4 % (0-0.5); Lymphocytes Absolute Auto 1.11 K/mm3 (0.9-3.2); Lymphocytes Percent Auto 24.6 % (18.3-44.2); Mean Corpuscular HGB Conc 33.1 g/dl (32-36); Mean Corpuscular Hemoglobin 30.8 pg (26-34); Mean Corpuscular Volume 93.2 fl (80-100); Mean Platelet Volume 10.4 fl (7.4-10.4); Monocytes Absolute Auto 0.4 K/mm3 (0.1-0.6); Monocytes Percent Auto 8.2 % (2.6-8.5); Neutrophils Absolute Auto 2.8 K/mm3 (1.3-6.7); Neutrophils Percent Auto 61.3 % (45.5-73.1); Platelet Count Result 170 k/mm3 (150-375); Red Blood Count 3.83 M/mm3 (4.2-5.4); Red Cell Distribution Width 30.6 % (11.5-14.5); White Blood Count 4.5 K/mm3 (4.5-10.0)
[2023-04-28 05:26] LABS: Anion Gap 6 mmol/L (8-16); Blood Urea Nitrogen 28 mg/dL (7-17); Calcium 8.8 mg/dL (8.4-10.2); Carbon Dioxide 28 mmol/L (22-30); Chloride 97 mmol/L (98-107); Estimated CRCL calculation 226 ml/min; Estimated Glomerular Filt Rate 43; Glucose 106 mg/dL (65-110); Magnesium 1.9 mg/dL (1.6-2.3); Potassium 3.5 mmol/L (3.4-5.0); Sodium 131 mmol/L (137-145)
[2023-04-28 05:45] LABS: Anisocytosis 1+; Ovalocytes 1+; Platelet Estimate Adequate (Adequate); Schistocytes None Seen
[2023-04-28] MEDS: LEVOTHYROXINE SODIUM 25 MCG TABLET PO (06:36)
[2023-04-28 08:13] LABS: Glucose Point of Care 109 mg/dl (65-105)
--- NOTE | 2023-04-28 09:02 | PM.PNCARD ---
Progress Note: A&P Assessment and Plan (1) Combined systolic and diastolic congestive heart failure: Code(s): I50.40 - Unspecified combined systolic (congestive) and diastolic (congestive) heart failure Status: Acute Assessment and Plan: Pt presents w/ acute on chronic systolic and diastolic CHF, and moderate LV dysfunction, EF 40-45%. She had normal LV function on discharge from [facility] in December, when she was discharged on treatment for her AFib. Possibly a tachycardia induced CMY --Continue furosemide to 60 mg IV push b.i.d. --NEWTON hose --daily BMP, BUN/Cr today 28/1.2 (25/1.0) --increase beta-melina as tolerated --Hopefully when less diuresis required, we can add standard GDMT (BP marginal today) --Dry weight is around 150 according to caregiver. Bed weight today inaccurate (214), but weight on admission was 175. (2) Atrial fibrillation with rapid ventricular response: Code(s): I48.91 - Unspecified atrial fibrillation Status: Acute Assessment and Plan: AFib diagnosed in November, which appears persistent. As mentioned above she was discharged from [place] after surgery on metoprolol and diltiazem but that seems to have been discontinued at some point. She now has AFib RVR. --continue Eliquis --heart rate controlled today. Will d/c scheduled IV metoprolol and increase p.o. dose to 37.5mg q12h. --PRN IV metoprolol (3) History of mitral valve replacement with bioprosthetic valve: Code(s): Z95.3 - Presence of xenogenic heart valve Status: Acute Assessment and Plan: History of bioprosthetic mitral valve for mitral stenosis, normal function by echo. (4) History of aortic valve replacement with bioprosthetic valve: Code(s): Z95.3 - Presence of xenogenic heart valve Status: Acute Assessment and Plan: History of bioprosthetic aortic valve replacement, normal function. Subjective Date/time seen: 04/28/23 09:02 Interval history: Cardiology follow up for Afib, CHF Date of service 04/28/2023: Feeling better today compared to yesterday. Breathing comfortably. Edema is improving. No palpitations or chest pain. Review of Systems Constitutional: Constitutional: Denies fever(s) Eyes: Eyes: Reports no additional eye complaints ENT: Denies epistaxis Cardiovascular: Cardiovascular: Denies chest pain, Denies pedal edema, Reports leg edema, Denies lightheadedness, Reports palpitations, Reports dyspnea and Reports dyspnea on exertion Respiratory: Respiratory: Denies chest congestion, Reports dyspnea and Reports dyspnea on exertion Gastrointestinal: Gastrointestinal: Denies abdominal pain and Denies hematochezia Genitourinary: Genitourinary: Reports no additional female genitourinary complaints Musculoskeletal: Musculoskeletal: Reports no additional musculoskeletal complaints Integumentary/Breasts: Skin/Breast: Reports system reviewed and no additional complaints, except as docu Neurologic: Reports system reviewed and no additional complaints, except as documented, Denies behavioral changes and Denies confusion Psychiatric: Psychiatric: Denies behavioral changes and Denies confusion Endocrine: Endocrine: Reports palpitations Exam Const: General: cooperative, healthy appearing, comfortable and no acute distress; No confusion Orientation/consciousness: oriented to person, patient oriented x3 and No confusion HENMT: Mouth: Yes moist mucous membranes Eyes: General: appearance normal, both eyes and all related structures Neck: Neck: supple and No no JVD Thyroid: thyroid normal Carotids: no bruits Resp: Effort & Inspection: abnormal respiratory effort and able to speak in complete sentences Auscultation: crackles (R base) and diminished lung sounds (bases) Cardio: Rate: regular rate Rhythm: regular rhythm and abnormal rhythm irregularly irregular Heart sounds: no murmurs GI: Inspection: normal to inspection Skin: General skin exam
[2023-04-28] MEDS: FERROUS SULFATE 325 MG TABLET DR BY MOUTH (09:13)
[2023-04-28] MEDS: POTASSIUM CHLORIDE 20 MEQ ER TABLET PO (09:13)
[2023-04-28] MEDS: APIXABAN 5 MG TABLET PO ×2 (09:13→20:01)
[2023-04-28] MEDS: METOPROLOL TARTRATE 25 MG TABLET PO (09:14)
[2023-04-28] MEDS: FUROSEMIDE INJ 40 MG/4 ML VIAL 60 MG IV PUSH ×2 (09:14→17:33)
[2023-04-28] MEDS: PRAVASTATIN SODIUM 20 MG TABLET PO (09:15)
[2023-04-28 12:10] LABS: Glucose Point of Care 253 mg/dl (65-105)
[2023-04-28] MEDS: INSULIN ASPART (*BKC) 100 UNITS/ML SUB-Q (13:23)
--- NOTE | 2023-04-28 14:42 | PM.IMPN ---
Progress Note: A&P Assessment and Plan (1) History of mitral valve replacement with bioprosthetic valve: Code(s): Z95.3 - Presence of xenogenic heart valve Status: Acute (2) Combined systolic and diastolic congestive heart failure: Code(s): I50.40 - Unspecified combined systolic (congestive) and diastolic (congestive) heart failure Status: Acute (3) Renal insufficiency: Code(s): N28.9 - Disorder of kidney and ureter, unspecified Status: Acute (4) Atrial fibrillation with rapid ventricular response: Code(s): I48.91 - Unspecified atrial fibrillation Status: Acute Plan 77-year-old female paroxysmal atrial fibrillation on chronic anticoagulation, valvular heart disease status post bioprosthetic aortic and mitral valve replacements, stage IV breast cancer, iron deficiency anemia, type 2 diabetes mellitus, and hypothyroidism who presented to the emergency department?with worsening SOB, leg swelling 1. Acute on chronic CHF exacerbation: Continue with IV diuresis Strict in's and out's Daily weight Appreciate cardiology help 2. AFib with RVR: Will start on low-dose metoprolol Continue with Eliquis Await echocardiogram 3. Diabetes mellitus: Hold glipizide Blood glucose check t.i.d. a.c. HS Continue with sliding scale insulin 4.? delirium versus mild cognitive impairment: Will monitor closely 5. DVT prophylaxis on Eliquis 6. Code status: Full 7. Disposition: Pending improvement Time Spent With Patient Time with patient: 15 - 25 minutes Subjective Date/time seen: 04/28/23 14:42 Interval history: No acute events overnight Review of Systems Review of Systems: . All systems reviewed & are unremarkable except as noted in HPI and below Exam Narrative: General: Chronically ill-appearing female HEENT: PERRL, EOMI. Sclera anicteric. Oral mucosa moist. Neck: Supple. No JVD. Respiratory: Respirations are nonlabored and she is speaking in full sentences. She does appear to get a bit winded when adjusting herself in bed but that is brief. Crackles heard at both bases. Cardiovascular: Irregularly irregular rate and rhythm. Systolic murmurs heard at the apex and upper sternal border. Gastrointestinal: Abdomen is protuberant and nontender with positive bowel sounds. Skin: Warm and dry. Faint erythema of the lower legs due to significant swelling. Extremities: No cyanosis or clubbing. Tense pitting edema to the thighs bilaterally. No palpable knots or cords. Negative Ulisses sign bilaterally. Peripheral pulses palpable. Neurological: Alert and oriented x1. Cranial nerves 2-12 are grossly intact. Speech is clear. No facial asymmetry. No gross focal deficits to casual conversation. Psychiatric:calm. Objective Data Vital Signs Vital Signs: Vital Signs - 24 hr 04/27/23 15:45 04/27/23 16:00 04/27/23 16:00 Temperature 98.1 F Pulse Rate 105 H 103 H 120 H Respiratory Rate 20 Blood Pressure 117/86 Pulse Oximetry 98 Oxygen Delivery Room Air Fraction of Inspired Oxygen 04/27/23 18:17 04/27/23 18:00 04/27/23 20:00 Temperature 97.6 F Pulse Rate 117 H 108 H 98 Respiratory Rate 18 Blood Pressure 111/93 H Pulse Oximetry 93 Oxygen Delivery Fraction of Inspired Oxygen 04/27/23 20:46 04/27/23 20:47 04/27/23 20:00 Temperature Pulse Rate 98 98 104 H Respiratory Rate Blood Pressure Pulse Oximetry Oxygen Delivery Fraction of Inspired Oxygen 04/27/23 20:00 04/27/23 22:00 04/27/23 23:45 Temperature 97 F L Pulse Rate 96 78 Respiratory Rate 18 Blood Pressure 96/62 L Pulse Oximetry 95 Oxygen Delivery Room Air Fraction of Inspired Oxygen 04/28/23 00:34 04/28/23 00:00 04/28/23 00:00 Temperature Pulse Rate 93 94 Respiratory Rate Blood Pressure Pulse Oximetry Oxygen Delivery Room Air Fraction of Inspired Oxygen 04/28/23 02:00 04/28/23 04:00 04/28/23 04:00 Tem
[2023-04-28 16:21] LABS: Glucose Point of Care 181 mg/dl (65-105)
[2023-04-28] MEDS: ACETAMINOPHEN 500 MG TABLET 1000 MG PO (19:57)
[2023-04-28] MEDS: METOPROLOL TARTRATE 12.5 MG TABLET 37.5 MG PO (20:00)
[2023-04-28] MEDS: traZODone HCL 50 MG TABLET PO (20:00)
[2023-04-28 21:23] LABS: Glucose Point of Care 161 mg/dl (65-105)
[2023-04-29] VITALS (18 sets, daily range): BP systolic 98–115; BP diastolic 54–91; PULSE 74–120; RESP 16–20; TEMP 36.3–36.9; O2SAT 91–100
[2023-04-29 05:10] LABS: Basophils Absolute Auto 0.1 K/mm3 (0.0-0.1); Eosinophils Absolute Auto 0.2 K/mm3 (0-0.3); Eosinophils Percent Auto 4.4 % (0-4.4); Hematocrit 34.7 % (37.0-47.0); Hemoglobin 11.6 g/dL (12.0-15.0); Immature Granulocyte Absolute 0.02 K/mm3 (0.00-0.031); Immature Granulocyte Percent A 0.4 % (0-0.5); Lymphocytes Absolute Auto 1.03 K/mm3 (0.9-3.2); Lymphocytes Percent Auto 21.4 % (18.3-44.2); Mean Corpuscular HGB Conc 33.4 g/dl (32-36); Mean Corpuscular Hemoglobin 31.9 pg (26-34); Mean Corpuscular Volume 95.3 fl (80-100); Mean Platelet Volume 10.2 fl (7.4-10.4); Monocytes Absolute Auto 0.4 K/mm3 (0.1-0.6); Monocytes Percent Auto 8.7 % (2.6-8.5); Neutrophils Absolute Auto 3.1 K/mm3 (1.3-6.7); Neutrophils Percent Auto 64.1 % (45.5-73.1); Platelet Count Result 163 k/mm3 (150-375); Red Blood Count 3.64 M/mm3 (4.2-5.4); White Blood Count 4.8 K/mm3 (4.5-10.0)
[2023-04-29 05:33] LABS: Platelet Estimate Slightly Decreased (Adequate)
[2023-04-29 05:34] LABS: Anion Gap 2 mmol/L (8-16); Anisocytosis 1+; Blood Urea Nitrogen 32 mg/dL (7-17); Calcium 8.5 mg/dL (8.4-10.2); Carbon Dioxide 31 mmol/L (22-30); Chloride 99 mmol/L (98-107); Estimated CRCL calculation 33 ml/min; Estimated Glomerular Filt Rate 43; Glucose 117 mg/dL (65-110); Hypochromasia 1+; Poikilocytosis 1+; Potassium 3.5 mmol/L (3.4-5.0); Schistocytes Rare; Sodium 132 mmol/L (137-145)
[2023-04-29] MEDS: LEVOTHYROXINE SODIUM 25 MCG TABLET PO (06:20)
[2023-04-29 07:44] LABS: Glucose Point of Care 96 mg/dl (65-105)
[2023-04-29] MEDS: METOPROLOL TARTRATE 12.5 MG TABLET 37.5 MG PO ×2 (08:56→20:03)
[2023-04-29] MEDS: APIXABAN 5 MG TABLET PO ×2 (08:56→20:03)
[2023-04-29] MEDS: POTASSIUM CHLORIDE 20 MEQ ER TABLET PO (08:56)
[2023-04-29] MEDS: FERROUS SULFATE 325 MG TABLET DR BY MOUTH (08:56)
[2023-04-29] MEDS: PRAVASTATIN SODIUM 20 MG TABLET PO (08:56)
[2023-04-29] MEDS: FUROSEMIDE INJ 40 MG/4 ML VIAL 60 MG IV PUSH ×2 (08:57→16:54)
--- NOTE | 2023-04-29 09:37 | PM.IMPN ---
Progress Note: A&P Assessment and Plan (1) History of mitral valve replacement with bioprosthetic valve: Code(s): Z95.3 - Presence of xenogenic heart valve Status: Acute (2) Combined systolic and diastolic congestive heart failure: Code(s): I50.40 - Unspecified combined systolic (congestive) and diastolic (congestive) heart failure Status: Acute (3) Renal insufficiency: Code(s): N28.9 - Disorder of kidney and ureter, unspecified Status: Acute (4) Atrial fibrillation with rapid ventricular response: Code(s): I48.91 - Unspecified atrial fibrillation Status: Acute (5) Dementia, senile with delusions: Code(s): F03.92 - Unspecified dementia, unspecified severity, with psychotic disturbance Status: Acute (6) Type 2 diabetes mellitus: Code(s): E11.9 - Type 2 diabetes mellitus without complications Status: Acute Plan 77-year-old female paroxysmal atrial fibrillation on chronic anticoagulation, valvular heart disease status post bioprosthetic aortic and mitral valve replacements, stage IV breast cancer, iron deficiency anemia, type 2 diabetes mellitus, and hypothyroidism who presented to the emergency department?with worsening SOB, leg swelling Acute on chronic CHF exacerbation, systolic and diastolic -cardiology following. Currently on potassium 20 mEq daily, metoprolol 37.5 mg p.o. b.i.d. and Lasix 60 mg IV b.i.d. -continue daily weights along with strict intake and output AFib with RVR -repeat surface echocardiogram demonstrating 40 45% EF with grade 2 diastolic dysfunction, right ventricular enlargement and hypokinesis bioprosthetic aortic and mitral valves appear normal. Moderate pulmonary artery systolic pressure of 57 mmHg -telemetry demonstrating AFib with RVR in the 100s. Continue telemetry -currently on metoprolol 37.5 mg p.o. b.i.d.. Cardiology following -continue Eliquis [id number] diabetes mellitus -glipizide on hold -continue Accu-Cheks and low-dose insulin sliding scale Dementia with delusions -in 10/2022 a patient's family member and this is when family noticed she was confused at night and also had delusions. However, the dementia may have started prior to this. Patient lived at home prior to admission and disposition is ongoing. Iron deficiency anemia -continue to monitor FEN: Saline lock IV GI prophylaxis: Not indicated DVT prophylaxis: On Eliquis Lines: Full IV Code Status: Full code Dispo: Patient lived at home by herself prior to admission. Family collectively agrees the patient should not live by herself considering her dementia with delusions. Disposition pending with helps care coordination. Time Spent With Patient Time with patient: 15 - 25 minutes Subjective Date/time seen: 04/29/23 09:37 Interval history: No acute overnight events. The patient has no complaints although reportedly overnight confused. She tells me that she is not looking her medications multiply. This happens while it is dark. Review of Systems Review of Systems: All systems reviewed & are unremarkable except as noted in HPI and below (Subjective) Exam Const: General: comfortable and no acute distress Other: A&O x3. Delusional speech Eyes: Pupils: Equal, round and reactive pupils present Neck: Neck: supple Resp: Effort & Inspection: normal respiratory effort Auscultation: clear to auscultation bilaterally Cardio: Rate: tachycardic Rhythm: abnormal rhythm Heart sounds: no gallops, no murmurs and no rubs GI: GI Palp: Yes Soft to palpation and No Tenderness to palpation present (GI) Extrem: General: edema (2+ edema of the lower extremities from ankles to the thighs) Objective Data Vital Signs Vital Signs: Vital Signs - 24 hr 04/28/23 10:42 04/28/23 11:55 04/28/23 10:00 Temperature 97.0 F L Pulse Rate 106 H 97 Respiratory Rate 24 H Blood Pressure 109/78 Pulse Oximetry 94 Oxygen Delivery [place]
--- NOTE | 2023-04-29 11:49 | PM.PNCARD ---
Progress Note: A&P Assessment and Plan (1) Combined systolic and diastolic congestive heart failure: Code(s): I50.40 - Unspecified combined systolic (congestive) and diastolic (congestive) heart failure Status: Acute Assessment and Plan: Pt presents w/ acute on chronic systolic and diastolic CHF, and moderate LV dysfunction, EF 40-45%. She had normal LV function on discharge from [facility] in December, when she was discharged on treatment for her AFib. Possibly a tachycardia induced CMY --Continue furosemide to 60 mg IV push b.i.d. for today. Likely shift to p.o. furosemide tomorrow --NEWTON hose --daily BMP, BUN/Cr today 32/1.2 (28/1.2) --increase beta-melina as tolerated --Hopefully when less diuresis required, we can add standard GDMT (BP remains marginal today) --Dry weight is around 150 according to caregiver. Obtain standing weight if possible; her bed weight is inaccurate. (2) Atrial fibrillation with rapid ventricular response: Code(s): I48.91 - Unspecified atrial fibrillation Status: Acute Assessment and Plan: AFib diagnosed in November, which appears persistent. As mentioned above she was discharged from [place] after surgery on metoprolol and diltiazem but that seems to have been discontinued at some point. She now has AFib RVR. --continue Eliquis --heart rate controlled today. Will shift to Toprol XL at this point in light of her cardiomyopathy --PRN IV metoprolol (3) History of mitral valve replacement with bioprosthetic valve: Code(s): Z95.3 - Presence of xenogenic heart valve Status: Acute Assessment and Plan: History of bioprosthetic mitral valve for mitral stenosis, normal function by echo. (4) History of aortic valve replacement with bioprosthetic valve: Code(s): Z95.3 - Presence of xenogenic heart valve Status: Acute Assessment and Plan: History of bioprosthetic aortic valve replacement, normal function. Subjective Date/time seen: 04/29/23 11:49 Interval history: Cardiology follow up for Afib, CHF Date of service 04/28/2023: Feeling better today compared to yesterday. Breathing comfortably. Edema is improving. No palpitations or chest pain. Date of service 04/29/2023: Continues to feel well. No shortness of breath on room air. Heart rate well controlled. No chest pain, palpitations. Review of Systems Constitutional: Constitutional: Denies fever(s) Eyes: Eyes: Reports no additional eye complaints ENT: Denies epistaxis Cardiovascular: Cardiovascular: Denies chest pain, Denies pedal edema, Reports leg edema, Denies lightheadedness, Reports palpitations, Reports dyspnea and Reports dyspnea on exertion Respiratory: Respiratory: Denies chest congestion, Reports dyspnea and Reports dyspnea on exertion Gastrointestinal: Gastrointestinal: Denies abdominal pain and Denies hematochezia Genitourinary: Genitourinary: Reports no additional female genitourinary complaints Musculoskeletal: Musculoskeletal: Reports no additional musculoskeletal complaints Integumentary/Breasts: Skin/Breast: Reports system reviewed and no additional complaints, except as docu Neurologic: Reports system reviewed and no additional complaints, except as documented, Denies behavioral changes and Denies confusion Psychiatric: Psychiatric: Denies behavioral changes and Denies confusion Endocrine: Endocrine: Reports palpitations Exam Const: General: cooperative, healthy appearing, comfortable, no acute distress and in distress (Appears initial compressed.) mild and respiratory; No confusion Orientation/consciousness: oriented to person, patient oriented x3 and No confusion HENMT: Mouth: Yes moist mucous membranes Eyes: General: appearance normal, both eyes and all related structures Neck: Neck: supple and No no JVD Thyroid: thyroid normal Carotids: no bruits Resp: Effort & Inspection: normal respiratory effort and able to speak in com
[2023-04-29 12:53] LABS: Glucose Point of Care 185 mg/dl (65-105)
[2023-04-29 16:16] LABS: Glucose Point of Care 143 mg/dl (65-105)
[2023-04-29] MEDS: traZODone HCL 50 MG TABLET PO (20:04)
[2023-04-29 21:25] LABS: Glucose Point of Care 172 mg/dl (65-105)
[2023-04-30] VITALS (13 sets, daily range): BP systolic 101–120; BP diastolic 51–82; PULSE 70–105; RESP 15–24; TEMP 36.1–36.7; O2SAT 93–96
[2023-04-30 04:42] LABS: Hematocrit 36.9 % (37.0-47.0); Hemoglobin 12.1 g/dL (12.0-15.0); Mean Corpuscular HGB Conc 32.8 g/dl (32-36); Mean Corpuscular Hemoglobin 30.6 pg (26-34); Mean Corpuscular Volume 93.2 fl (80-100); Platelet Count Result 169 k/mm3 (150-375); Red Blood Count 3.96 M/mm3 (4.2-5.4); Red Cell Distribution Width 29.9 % (11.5-14.5); White Blood Count 4.9 K/mm3 (4.5-10.0)
[2023-04-30 04:49] LABS: Anion Gap 5 mmol/L (8-16); Blood Urea Nitrogen 30 mg/dL (7-17); Calcium 8.6 mg/dL (8.4-10.2); Carbon Dioxide 30 mmol/L (22-30); Chloride 98 mmol/L (98-107); Estimated CRCL calculation 35 ml/min; Estimated Glomerular Filt Rate 48; Glucose 127 mg/dL (65-110); Potassium 3.2 mmol/L (3.4-5.0); Sodium 133 mmol/L (137-145)
[2023-04-30] MEDS: LEVOTHYROXINE SODIUM 25 MCG TABLET PO (06:08)
[2023-04-30 07:57] LABS: Glucose Point of Care 128 mg/dl (65-105)
[2023-04-30] MEDS: POTASSIUM CHLORIDE 20 MEQ ER TABLET PO (09:25)
[2023-04-30] MEDS: METOPROLOL SUCCINATE EXT REL 25 MG, METOPROLOL SUCCINATE EXT REL 50 MG 75 MG PO (09:25)
[2023-04-30] MEDS: APIXABAN 5 MG TABLET PO ×2 (09:26→20:00)
[2023-04-30] MEDS: FERROUS SULFATE 325 MG TABLET DR BY MOUTH (09:26)
[2023-04-30] MEDS: PRAVASTATIN SODIUM 20 MG TABLET PO (09:26)
--- NOTE | 2023-04-30 11:56 | PM.PNCARD ---
Progress Note: A&P Assessment and Plan (1) Combined systolic and diastolic congestive heart failure: Code(s): I50.40 - Unspecified combined systolic (congestive) and diastolic (congestive) heart failure Status: Acute Assessment and Plan: Pt presents w/ acute on chronic systolic and diastolic CHF, and moderate LV dysfunction, EF 40-45%. She had normal LV function on discharge from [facility] in December, when she was discharged on treatment for her AFib. 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 daily starting today. KCL 40 mEq p.o. x1 --NEWTON hose --daily BMP, BUN/Cr today 32/1.2 (28/1.2) --increase beta-melina as tolerated --Hopefully when less diuresis required, we can add standard GDMT (BP remains marginal today) --Dry weight is around 150 according to caregiver. Obtain standing weight if possible; her bed weight is inaccurate. (2) Atrial fibrillation with rapid ventricular response: Code(s): I48.91 - Unspecified atrial fibrillation Status: Acute Assessment and Plan: AFib diagnosed in November, which appears persistent. As mentioned above she was discharged from [facility] after surgery on metoprolol and diltiazem but that seems to have been discontinued at some point. She now has AFib RVR. --continue Eliquis --heart rate controlled today. Continue Toprol XL --PRN IV metoprolol (3) History of mitral valve replacement with bioprosthetic valve: Code(s): Z95.3 - Presence of xenogenic heart valve Status: Acute Assessment and Plan: History of bioprosthetic mitral valve for mitral stenosis, normal function by echo. (4) History of aortic valve replacement with bioprosthetic valve: Code(s): Z95.3 - Presence of xenogenic heart valve Status: Acute Assessment and Plan: History of bioprosthetic aortic valve replacement, normal function. Subjective Date/time seen: 04/30/23 11:56 Interval history: Cardiology follow up for Afib, CHF Date of service 04/28/2023: Feeling better today compared to yesterday. Breathing comfortably. Edema is improving. No palpitations or chest pain. Date of service 04/29/2023: Continues to feel well. No shortness of breath on room air. Heart rate well controlled. No chest pain, palpitations. Date of service 04/30/2023: Heart rate mildly elevated. Had some shortness of breath yesterday but better today. No chest pain. Review of Systems Constitutional: Constitutional: Denies fever(s) Eyes: Eyes: Reports no additional eye complaints ENT: Denies epistaxis Cardiovascular: Cardiovascular: Denies chest pain, Denies pedal edema, Reports leg edema, Denies lightheadedness, Reports palpitations, Reports dyspnea and Reports dyspnea on exertion Respiratory: Respiratory: Denies chest congestion, Reports dyspnea and Reports dyspnea on exertion Gastrointestinal: Gastrointestinal: Denies abdominal pain and Denies hematochezia Genitourinary: Genitourinary: Reports no additional female genitourinary complaints Musculoskeletal: Musculoskeletal: Reports no additional musculoskeletal complaints Integumentary/Breasts: Skin/Breast: Reports system reviewed and no additional complaints, except as docu Neurologic: Reports system reviewed and no additional complaints, except as documented, Denies behavioral changes and Denies confusion Psychiatric: Psychiatric: Denies behavioral changes and Denies confusion Endocrine: Endocrine: Reports palpitations Hematologic/Lymphatic: Hematologic/Lymphatic: Denies easy bleeding Exam Const: General: cooperative, healthy appearing, comfortable and no acute distress; No confusion Orientation/consciousness: oriented to person, patient oriented x3 and No confusion HENMT: Mouth: Yes moist mucous membranes Eyes: General: appearance normal, both eyes and all related structures Sclera: sclerae normal Neck: Neck: supple and No no JVD Thyroid: thyroid normal Carotids:
[2023-04-30 12:01] LABS: Glucose Point of Care 271 mg/dl (65-105)
[2023-04-30] MEDS: INSULIN ASPART (*BKC) 100 UNITS/ML SUB-Q ×2 (12:08→21:11)
[2023-04-30] MEDS: POTASSIUM CHLORIDE 20 MEQ ER TABLET 40 MEQ PO (12:08)
[2023-04-30] MEDS: FUROSEMIDE 40 MG TABLET PO (12:08)
--- NOTE | 2023-04-30 12:27 | PM.IMPN ---
Progress Note: A&P Assessment and Plan (1) History of mitral valve replacement with bioprosthetic valve: Code(s): Z95.3 - Presence of xenogenic heart valve Status: Acute (2) Combined systolic and diastolic congestive heart failure: Code(s): I50.40 - Unspecified combined systolic (congestive) and diastolic (congestive) heart failure Status: Acute (3) Renal insufficiency: Code(s): N28.9 - Disorder of kidney and ureter, unspecified Status: Acute (4) Atrial fibrillation with rapid ventricular response: Code(s): I48.91 - Unspecified atrial fibrillation Status: Acute (5) Dementia, senile with delusions: Code(s): F03.92 - Unspecified dementia, unspecified severity, with psychotic disturbance Status: Acute (6) Type 2 diabetes mellitus: Code(s): E11.9 - Type 2 diabetes mellitus without complications Status: Acute Plan 77-year-old female paroxysmal atrial fibrillation on chronic anticoagulation, valvular heart disease status post bioprosthetic aortic and mitral valve replacements, stage IV breast cancer, iron deficiency anemia, type 2 diabetes mellitus, and hypothyroidism who presented to the emergency department?with worsening SOB, leg swelling Update for 04/29. Patient is doing well. Room air. AFib and heart failure management per Cardiology. Potassium is being replaced. Psycho potassium and magnesium. Dispo pending with care coordination considering her dementia with delusions. Transfer to medical floor. Acute on chronic CHF exacerbation, systolic and diastolic -cardiology following. Currently on potassium 20 mEq daily, metoprolol 37.5 mg p.o. b.i.d. and Lasix 60 mg IV b.i.d. -continue daily weights along with strict intake and output AFib with RVR -repeat surface echocardiogram demonstrating 40 45% EF with grade 2 diastolic dysfunction, right ventricular enlargement and hypokinesis bioprosthetic aortic and mitral valves appear normal. Moderate pulmonary artery systolic pressure of 57 mmHg -telemetry demonstrating AFib with RVR in the 100s. Continue telemetry -currently on metoprolol 37.5 mg p.o. b.i.d.. Cardiology following -continue Eliquis [id number] diabetes mellitus -glipizide on hold -continue Accu-Cheks and low-dose insulin sliding scale Dementia with delusions -in 10/2022 a patient's family member and this is when family noticed she was confused at night and also had delusions. However, the dementia may have started prior to this. Patient lived at home prior to admission and disposition is ongoing. Iron deficiency anemia -continue to monitor FEN: Saline lock IV GI prophylaxis: Not indicated DVT prophylaxis: On Eliquis Lines: Full IV Code Status: Full code Dispo: Patient lived at home by herself prior to admission. Family collectively agrees the patient should not live by herself considering her dementia with delusions. Disposition pending with helps care coordination. Time Spent With Patient Time with patient: 15 - 25 minutes Subjective Date/time seen: 04/30/23 12:27 Interval history: No acute overnight events. It is sitting up in bed eating lunch. She is working on her pills but amenable to taking them. She denies any shortness of breath or any other symptoms and feels she is doing well. Review of Systems Review of Systems: All systems reviewed & are unremarkable except as noted in HPI and below (Subjective) Exam Const: General: comfortable and no acute distress Other: A&O x3. Eyes: Pupils: Equal, round and reactive pupils present Neck: Neck: supple Resp: Effort & Inspection: normal respiratory effort Auscultation: clear to auscultation bilaterally Cardio: Rate: regular rate Rhythm: abnormal rhythm GI: GI Palp: Yes Soft to palpation and No Tenderness to palpation present (GI) Extrem: General: edema (1+ of the bilateral lower extremities) Objective Data Vital Signs Vital Signs: Kathy
[2023-04-30 15:50] LABS: Glucose Point of Care 191 mg/dl (65-105)
[2023-04-30] MEDS: traZODone HCL 50 MG TABLET PO (20:00)
[2023-04-30 21:01] LABS: Glucose Point of Care 206 mg/dl (65-105)
--- NOTE | 2023-04-30 22:47 | PC.NURSE ---
This patient, Charito Rey, was transferred to [[id number] ] on 04/30/23 at 2247. Personal belongings sent with patient. Report given to [ RN]. Appropriate documentation sent with patient.
[2023-05-01] VITALS (9 sets, daily range): BP systolic 104–120; BP diastolic 54–75; PULSE 63–114; RESP 18–20; TEMP 36.3–36.4; O2SAT 92–94
[2023-05-01] MEDS: LEVOTHYROXINE SODIUM 25 MCG TABLET PO (04:50)
[2023-05-01 07:30] LABS: Anion Gap 5 mmol/L (8-16); Blood Urea Nitrogen 25 mg/dL (7-17); Calcium 8.9 mg/dL (8.4-10.2); Carbon Dioxide 31 mmol/L (22-30); Chloride 100 mmol/L (98-107); Estimated CRCL calculation 38 ml/min; Estimated Glomerular Filt Rate 53; Glucose 115 mg/dL (65-110); Potassium 3.6 mmol/L (3.4-5.0); Sodium 136 mmol/L (137-145)
[2023-05-01 08:14] LABS: Glucose Point of Care 113 mg/dl (65-105)
[2023-05-01] MEDS: FERROUS SULFATE 325 MG TABLET DR BY MOUTH (08:23)
[2023-05-01] MEDS: FUROSEMIDE 40 MG TABLET PO (08:23)
[2023-05-01] MEDS: METOPROLOL SUCCINATE EXT REL 25 MG, METOPROLOL SUCCINATE EXT REL 50 MG 75 MG PO (08:23)
[2023-05-01] MEDS: POTASSIUM CHLORIDE 20 MEQ ER TABLET PO (08:24)
[2023-05-01] MEDS: PRAVASTATIN SODIUM 20 MG TABLET PO (08:24)
[2023-05-01] MEDS: APIXABAN 5 MG TABLET PO ×2 (08:24→21:03)
--- NOTE | 2023-05-01 10:33 | PM.PNCARD ---
Progress Note: A&P Assessment and Plan (1) Combined systolic and diastolic congestive heart failure: Code(s): I50.40 - Unspecified combined systolic (congestive) and diastolic (congestive) heart failure Status: Acute Assessment and Plan: Pt presents w/ acute on chronic systolic and diastolic CHF, and moderate LV dysfunction, EF 40-45%. She had normal LV function on discharge from [facility] in December, when she was discharged on treatment for her AFib. 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 --increase beta-melina as tolerated --Hopefully when less diuresis required, we can add standard GDMT (BP remains marginal today) --Dry weight is around 150 according to caregiver. Obtain standing weight if possible; her bed weight is inaccurate. (2) Atrial fibrillation with rapid ventricular response: Code(s): I48.91 - Unspecified atrial fibrillation Status: Acute Assessment and Plan: AFib diagnosed in November, which appears persistent. As mentioned above she was discharged from [facility] after surgery on metoprolol and diltiazem but that seems to have been discontinued at some point. She now has AFib RVR. --continue Eliquis --heart rate controlled today. Continue Toprol XL --PRN IV metoprolol (3) History of mitral valve replacement with bioprosthetic valve: Code(s): Z95.3 - Presence of xenogenic heart valve Status: Acute Assessment and Plan: History of bioprosthetic mitral valve for mitral stenosis, normal function by echo. (4) History of aortic valve replacement with bioprosthetic valve: Code(s): Z95.3 - Presence of xenogenic heart valve Status: Acute Assessment and Plan: History of bioprosthetic aortic valve replacement, normal function. Subjective Date/time seen: 05/01/23 10:33 Interval history: Cardiology follow up for Afib, CHF Date of service 04/28/2023: Feeling better today compared to yesterday. Breathing comfortably. Edema is improving. No palpitations or chest pain. Date of service 04/29/2023: Continues to feel well. No shortness of breath on room air. Heart rate well controlled. No chest pain, palpitations. Date of service 04/30/2023: Heart rate mildly elevated. Had some shortness of breath yesterday but better today. No chest pain. Date of service 05/01/2023: Looks and feels better today. No chest pain. No significant shortness of breath Review of Systems Constitutional: Constitutional: Denies fever(s) Eyes: Eyes: Reports no additional eye complaints ENT: Denies epistaxis Cardiovascular: Cardiovascular: Denies chest pain, Denies pedal edema, Reports leg edema, Denies lightheadedness, Reports palpitations, Reports dyspnea and Reports dyspnea on exertion Respiratory: Respiratory: Denies chest congestion, Reports dyspnea and Reports dyspnea on exertion Gastrointestinal: Gastrointestinal: Denies abdominal pain and Denies hematochezia Genitourinary: Genitourinary: Reports no additional female genitourinary complaints Musculoskeletal: Musculoskeletal: Reports no additional musculoskeletal complaints Integumentary/Breasts: Skin/Breast: Reports system reviewed and no additional complaints, except as docu Neurologic: Reports system reviewed and no additional complaints, except as documented, Denies behavioral changes and Denies confusion Psychiatric: Psychiatric: Denies behavioral changes and Denies confusion Endocrine: Endocrine: Reports palpitations Hematologic/Lymphatic: Hematologic/Lymphatic: Denies easy bleeding Exam Const: General: cooperative, healthy appearing, comfortable, no acute distress and in distress (Appears initial compressed.) mild and respiratory; No confusion Orientation/consciousness: oriented to person, patient oriented x3 and No confusion HENMT: Mouth: Yes moist mucous membranes Eyes: General: appearance normal, both eyes and
[2023-05-01 11:36] LABS: Glucose Point of Care 268 mg/dl (65-105)
[2023-05-01] MEDS: INSULIN ASPART (*BKC) 100 UNITS/ML SUB-Q (12:46)
--- NOTE | 2023-05-01 14:55 | PM.IMPN ---
Progress Note: A&P Assessment and Plan (1) History of mitral valve replacement with bioprosthetic valve: Code(s): Z95.3 - Presence of xenogenic heart valve Status: Acute (2) Combined systolic and diastolic congestive heart failure: Code(s): I50.40 - Unspecified combined systolic (congestive) and diastolic (congestive) heart failure Status: Acute (3) Renal insufficiency: Code(s): N28.9 - Disorder of kidney and ureter, unspecified Status: Acute (4) Atrial fibrillation with rapid ventricular response: Code(s): I48.91 - Unspecified atrial fibrillation Status: Acute (5) Dementia, senile with delusions: Code(s): F03.92 - Unspecified dementia, unspecified severity, with psychotic disturbance Status: Acute (6) Type 2 diabetes mellitus: Code(s): E11.9 - Type 2 diabetes mellitus without complications Status: Acute Plan 77-year-old female paroxysmal atrial fibrillation on chronic anticoagulation, valvular heart disease status post bioprosthetic aortic and mitral valve replacements, stage IV breast cancer, iron deficiency anemia, type 2 diabetes mellitus, and hypothyroidism who presented to the emergency department?with worsening SOB, leg swelling Update for 04/29. Patient is doing well. Room air. AFib and heart failure management per Cardiology. Potassium is being replaced. Trend potassium and magnesium. Dispo pending with care coordination considering her dementia with delusions. Transfer to medical floor. Update for 04/30. Patient continues to improve. She is still on room air. Cardiology following. Is currently on Lasix 40 mg p.o. q.day and metoprolol succinate 75 mg p.o. q.a.m.. Other guideline directed medical therapy on hold as her blood pressure is marginal currently. Pending discharge with care coordination. His who lives alone and has dementia with delusions and the family can no longer take care. They are planning for her to be permanent place. Acute on chronic CHF exacerbation, systolic and diastolic -cardiology following. Currently on potassium 20 mEq daily, metoprolol 37.5 mg p.o. b.i.d. and Lasix 60 mg IV b.i.d. -continue daily weights along with strict intake and output AFib with RVR -repeat surface echocardiogram demonstrating 40 45% EF with grade 2 diastolic dysfunction, right ventricular enlargement and hypokinesis bioprosthetic aortic and mitral valves appear normal. Moderate pulmonary artery systolic pressure of 57 mmHg -telemetry demonstrating AFib with RVR in the 100s. Continue telemetry -currently on metoprolol 37.5 mg p.o. b.i.d.. Cardiology following -continue Eliquis Ils-xqvvyen-tghrcposs diabetes mellitus -glipizide on hold -continue Accu-Cheks and low-dose insulin sliding scale Dementia with delusions -in 10/2022 a patient's family member and this is when family noticed she was confused at night and also had delusions. However, the dementia may have started prior to this. Patient lived at home prior to admission and disposition is ongoing. Iron deficiency anemia -continue to monitor FEN: Saline lock IV GI prophylaxis: Not indicated DVT prophylaxis: On Eliquis Lines: Full IV Code Status: Full code Dispo: Patient lived at home by herself prior to admission. Family collectively agrees the patient should not live by herself considering her dementia with delusions. Disposition pending with helps care coordination. Time Spent With Patient Time with patient: 15 - 25 minutes Subjective Date/time seen: 05/01/23 14:55 Interval history: No acute overnight events. Patient rest comfortably in bed. She is not wearing nasal cannula. Reports good breathing. She is delusional his usual did not want any breakfast because it was too flat. Review of Systems Review of Systems: All systems reviewed & are unremarkable except as noted in HPI and below (Subjective) Exam Const: General: comfortable and no acute distress
[2023-05-01 17:02] LABS: Glucose Point of Care 161 mg/dl (65-105)
[2023-05-01] MEDS: traZODone HCL 50 MG TABLET PO (21:03)
[2023-05-01 21:17] LABS: Glucose Point of Care 164 mg/dl (65-105)
[2023-05-02] VITALS (9 sets, daily range): BP systolic 92–110; BP diastolic 66–99; PULSE 78–121; RESP 20; TEMP 35.8–36.6; O2SAT 93–95
[2023-05-02] MEDS: LEVOTHYROXINE SODIUM 25 MCG TABLET PO (05:27)
[2023-05-02 06:52] LABS: Hematocrit 41.5 % (37.0-47.0); Hemoglobin 12.4 g/dL (12.0-15.0); Mean Corpuscular HGB Conc 29.9 g/dl (32-36); Mean Corpuscular Hemoglobin 26.2 pg (26-34); Mean Corpuscular Volume 87.7 fl (80-100); Mean Platelet Volume 10.2 fl (7.4-10.4); Platelet Count Result 161 k/mm3 (150-375); Red Blood Count 4.73 M/mm3 (4.2-5.4); Red Cell Distribution Width 26.8 % (11.5-14.5); White Blood Count 5.5 K/mm3 (4.5-10.0)
[2023-05-02 07:04] LABS: Anion Gap 3 mmol/L (8-16); Blood Urea Nitrogen 24 mg/dL (7-17); Carbon Dioxide 31 mmol/L (22-30); Chloride 100 mmol/L (98-107); Estimated CRCL calculation 39 ml/min; Estimated Glomerular Filt Rate 53; Glucose 143 mg/dL (65-110); Potassium 4.1 mmol/L (3.4-5.0); Sodium 134 mmol/L (137-145)
[2023-05-02 07:47] LABS: Glucose Point of Care 154 mg/dl (65-105)
[2023-05-02] MEDS: FERROUS SULFATE 325 MG TABLET DR BY MOUTH (08:12)
[2023-05-02] MEDS: POTASSIUM CHLORIDE 20 MEQ ER TABLET PO (08:12)
[2023-05-02] MEDS: FUROSEMIDE 40 MG TABLET PO (08:12)
[2023-05-02] MEDS: PRAVASTATIN SODIUM 20 MG TABLET PO (08:12)
[2023-05-02] MEDS: APIXABAN 5 MG TABLET PO ×2 (08:12→20:22)
[2023-05-02] MEDS: METOPROLOL SUCCINATE EXT REL 25 MG, METOPROLOL SUCCINATE EXT REL 50 MG 75 MG PO (08:12)
--- NOTE | 2023-05-02 09:14 | PM.PNCARD ---
Progress Note: A&P Assessment and Plan (1) Combined systolic and diastolic congestive heart failure: Code(s): I50.40 - Unspecified combined systolic (congestive) and diastolic (congestive) heart failure Status: Acute Assessment and Plan: Pt presents w/ acute on chronic systolic and diastolic CHF, and moderate LV dysfunction, EF 40-45%. She had normal LV function on discharge from [facility] in December, when she was discharged on treatment for her AFib. 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 --increase beta-melina as tolerated --add standard GDMT as BP allows (BP remains marginal today) --Dry weight is around 150 according to caregiver. Obtain standing weight if possible; her bed weight is inaccurate. (2) Atrial fibrillation with rapid ventricular response: Code(s): I48.91 - Unspecified atrial fibrillation Status: Acute Assessment and Plan: AFib diagnosed in November, which appears persistent. As mentioned above she was discharged from [place] after surgery on metoprolol and diltiazem but that seems to have been discontinued at some point. She now has AFib RVR. --continue Eliquis --heart rate controlled today. Continue Toprol XL --PRN IV metoprolol (3) History of mitral valve replacement with bioprosthetic valve: Code(s): Z95.3 - Presence of xenogenic heart valve Status: Acute Assessment and Plan: History of bioprosthetic mitral valve for mitral stenosis, normal function by echo. (4) History of aortic valve replacement with bioprosthetic valve: Code(s): Z95.3 - Presence of xenogenic heart valve Status: Acute Assessment and Plan: History of bioprosthetic aortic valve replacement, normal function. Subjective Date/time seen: 05/02/23 09:14 Interval history: Cardiology follow up for Afib, CHF Date of service 04/28/2023: Feeling better today compared to yesterday. Breathing comfortably. Edema is improving. No palpitations or chest pain. Date of service 04/29/2023: Continues to feel well. No shortness of breath on room air. Heart rate well controlled. No chest pain, palpitations. Date of service 04/30/2023: Heart rate mildly elevated. Had some shortness of breath yesterday but better today. No chest pain. Date of service 05/01/2023: Looks and feels better today. No chest pain. No significant shortness of breath Date of service 05/02/2023: Feels good. No complaints. Denies chest pain, palpitations, shortness of breath. Review of Systems Constitutional: Constitutional: Denies fever(s) Eyes: Eyes: Reports no additional eye complaints ENT: Denies epistaxis Cardiovascular: Cardiovascular: Denies chest pain, Denies pedal edema, Reports leg edema, Denies lightheadedness, Reports palpitations, Reports dyspnea and Reports dyspnea on exertion Respiratory: Respiratory: Denies chest congestion, Reports dyspnea and Reports dyspnea on exertion Gastrointestinal: Gastrointestinal: Denies abdominal pain and Denies hematochezia Genitourinary: Genitourinary: Reports no additional female genitourinary complaints Musculoskeletal: Musculoskeletal: Reports no additional musculoskeletal complaints Integumentary/Breasts: Skin/Breast: Reports system reviewed and no additional complaints, except as docu Neurologic: Reports system reviewed and no additional complaints, except as documented, Denies behavioral changes and Denies confusion Psychiatric: Psychiatric: Denies behavioral changes and Denies confusion Endocrine: Endocrine: Reports palpitations Hematologic/Lymphatic: Hematologic/Lymphatic: Denies easy bleeding Exam Const: General: cooperative, comfortable and no acute distress Orientation/consciousness: oriented to person, patient oriented x3 and No confusion HENMT: Mouth: Yes moist mucous membranes Eyes: General: appearance normal, both eyes and all related st
[2023-05-02 11:30] LABS: Glucose Point of Care 264 mg/dl (65-105)
[2023-05-02] MEDS: INSULIN ASPART (*BKC) 100 UNITS/ML SUB-Q (11:41)
--- NOTE | 2023-05-02 14:04 | PM.IMPN ---
Progress Note: A&P Assessment and Plan (1) History of mitral valve replacement with bioprosthetic valve: Code(s): Z95.3 - Presence of xenogenic heart valve Status: Acute (2) Combined systolic and diastolic congestive heart failure: Code(s): I50.40 - Unspecified combined systolic (congestive) and diastolic (congestive) heart failure Status: Acute (3) Renal insufficiency: Code(s): N28.9 - Disorder of kidney and ureter, unspecified Status: Acute (4) Atrial fibrillation with rapid ventricular response: Code(s): I48.91 - Unspecified atrial fibrillation Status: Acute (5) Dementia, senile with delusions: Code(s): F03.92 - Unspecified dementia, unspecified severity, with psychotic disturbance Status: Acute (6) Type 2 diabetes mellitus: Code(s): E11.9 - Type 2 diabetes mellitus without complications Status: Acute Plan 77-year-old female paroxysmal atrial fibrillation on chronic anticoagulation, valvular heart disease status post bioprosthetic aortic and mitral valve replacements, stage IV breast cancer, iron deficiency anemia, type 2 diabetes mellitus, and hypothyroidism who presented to the emergency department?with worsening SOB, leg swelling Acute on chronic CHF exacerbation, systolic and diastolic -Metoprolol increased to 75 mg p.o. q.a.m. -Lasix decreased to 40 mg p.o. q.day. she is on daily potassium replacement -do not think her blood pressure will allow for further addition of medications. Defer to Cardiology -continue daily weights along with strict intake and output AFib with RVR -repeat surface echocardiogram demonstrating 40 45% EF with grade 2 diastolic dysfunction, right ventricular enlargement and hypokinesis bioprosthetic aortic and mitral valves appear normal. Moderate pulmonary artery systolic pressure of 57 mmHg -currently rate controlled. Continue telemetry -continue metoprolol. Cardiology on board -continue Eliquis Gky-qjiqrvf-dwozwbgle diabetes mellitus -glipizide on hold -continue Accu-Cheks and low-dose insulin sliding scale Dementia with delusions -in 10/2022 a patient's family member and this is when family noticed she was confused at night and also had delusions. However, the dementia may have started prior to this. Iron deficiency anemia -continue to monitor FEN: Saline lock IV, fluid restriction GI prophylaxis: Not indicated DVT prophylaxis: On Eliquis Lines: Full IV Code Status: Full code Dispo: Patient lived at home by herself prior to admission. Family collectively agrees the patient should not live by herself considering her dementia with delusions. Care coordination reports patient can be discharged tomorrow to SNF. Time Spent With Patient Time with patient: 15 - 25 minutes Subjective Date/time seen: 05/02/23 14:04 Interval history: No acute overnight events. The patient is pleasant and does not have any complaints to bring forward. Review of Systems Review of Systems: All systems reviewed & are unremarkable except as noted in HPI and below (Subjective) Exam Const: General: comfortable and no acute distress Other: Pleasantly confused Eyes: Pupils: Equal, round and reactive pupils present Neck: Neck: supple Resp: Effort & Inspection: normal respiratory effort Auscultation: clear to auscultation bilaterally Cardio: Rate: regular rate Rhythm: regular rhythm GI: GI Palp: Yes Soft to palpation and No Tenderness to palpation present (GI) Extrem: General: edema (1+) Objective Data Vital Signs Vital Signs: Vital Signs - 24 hr 05/01/23 16:00 05/01/23 21:26 05/01/23 20:00 Temperature 97.3 F L Pulse Rate 114 H 63 97 Respiratory Rate 20 Blood Pressure 120/75 Pulse Oximetry 94 Oxygen Delivery 05/01/23 20:00 05/02/23 00:00 05/02/23 04:00 Temperature Pulse Rate 110 H 112 H Respiratory Rate Blood Pressure Pulse Oximetry Oxygen Delivery Room Air
[2023-05-02 16:35] LABS: Glucose Point of Care 157 mg/dl (65-105)
[2023-05-02] MEDS: traZODone HCL 50 MG TABLET PO (20:22)
[2023-05-02 20:24] LABS: Glucose Point of Care 198 mg/dl (65-105)
[2023-05-03] VITALS (8 sets, daily range): BP systolic 103–104; BP diastolic 73–76; PULSE 68–115; RESP 16–22; TEMP 36.2–36.6; O2SAT 93–98
[2023-05-03] MEDS: LEVOTHYROXINE SODIUM 25 MCG TABLET PO (06:06)
[2023-05-03 07:36] LABS: Glucose Point of Care 154 mg/dl (65-105)
[2023-05-03] MEDS: METOPROLOL SUCCINATE EXT REL 25 MG, METOPROLOL SUCCINATE EXT REL 50 MG 75 MG PO (07:58)
[2023-05-03] MEDS: FUROSEMIDE 40 MG TABLET PO (07:58)
[2023-05-03] MEDS: PRAVASTATIN SODIUM 20 MG TABLET PO (07:58)
[2023-05-03] MEDS: POTASSIUM CHLORIDE 20 MEQ ER TABLET PO (08:01)
[2023-05-03] MEDS: APIXABAN 5 MG TABLET PO (08:01)
[2023-05-03] MEDS: FERROUS SULFATE 325 MG TABLET DR BY MOUTH (08:01)
--- NOTE | 2023-05-03 11:01 | PCNWS ---
Weekly nutritional screen. Patient is tolerating current diet with adequate intake. No weight loss reported. No nutritional needs at this time. Intakes of 50-100% x 3 meals over the past 2 days. Weight up 6 lbs/4% x 7 days. Patient reports an ok appetite. Denies nausea, vomiting, diarrhea, constipation. Patient on a heart-healthy diet. She had no questions on current diet order.
[2023-05-03 11:30] LABS: Glucose Point of Care 184 mg/dl (65-105)
[2023-05-03] MEDS: METOPROLOL TARTRATE INJ 5 MG/5 ML VIAL IV PUSH (12:38)
--- NOTE | 2023-05-03 13:08 | PM.DS ---
DS: Admitting Diagnosis Discharge Date 05/03/2023: Admitting Diagnosis (1) CHF exacerbation: ?Code(s): I50.9 - Heart failure, unspecified ?Status:?Acute (2) Atrial fibrillation with rapid ventricular response: ?Code(s): I48.91 - Unspecified atrial fibrillation ?Status:?Acute (3) Chronic anticoagulation: ?Code(s): Z79.01 - FPC (current) use of anticoagulants ?Status:?Acute (4) Hyponatremia: ?Code(s): E87.1 - Hypo-osmolality and hyponatremia ?Status:?Acute (5) Renal insufficiency: ?Code(s): N28.9 - Disorder of kidney and ureter, unspecified ?Status:?Acute (6) Cognitive dysfunction: ?Code(s): F09 - Unspecified mental disorder due to known physiological condition ?Status:?Acute (7) Type 2 diabetes mellitus: ?Code(s): E11.9 - Type 2 diabetes mellitus without complications ?Status:?Acute (8) Breast cancer: ?Code(s): C50.919 - Malignant neoplasm of unspecified site of unspecified female breast ?Status:?Acute DS: Discharge Diagnosis Discharge Diagnosis (1) Dementia, senile with delusions: Code(s): F03.92 - Unspecified dementia, unspecified severity, with psychotic disturbance Status: Acute (2) History of mitral valve replacement with bioprosthetic valve: Code(s): Z95.3 - Presence of xenogenic heart valve Status: Acute (3) History of aortic valve replacement with bioprosthetic valve: Code(s): Z95.3 - Presence of xenogenic heart valve Status: Acute (4) Valvular heart disease: Code(s): I38 - Endocarditis, valve unspecified Status: Acute (5) Combined systolic and diastolic congestive heart failure: Code(s): I50.40 - Unspecified combined systolic (congestive) and diastolic (congestive) heart failure Status: Acute (6) Renal insufficiency: Code(s): N28.9 - Disorder of kidney and ureter, unspecified Status: Acute (7) Hyponatremia: Code(s): E87.1 - Hypo-osmolality and hyponatremia Status: Acute (8) Atrial fibrillation with rapid ventricular response: Code(s): I48.91 - Unspecified atrial fibrillation Status: Acute (9) CHF exacerbation: Code(s): I50.9 - Heart failure, unspecified Status: Acute (10) Chronic anticoagulation: Code(s): Z79.01 - intermediate card tender (current) use of anticoagulants Status: Acute (11) Paroxysmal atrial fibrillation: Code(s): I48.0 - Paroxysmal atrial fibrillation Status: Acute (12) Hypertension: Code(s): I10 - Essential (primary) hypertension Status: Acute (13) Cognitive dysfunction: Code(s): F09 - Unspecified mental disorder due to known physiological condition Status: Acute (14) Type 2 diabetes mellitus: Code(s): E11.9 - Type 2 diabetes mellitus without complications Status: Acute (15) intermediate card tender use of drug: Code(s): Z79.899 - Other fdc (current) drug therapy Status: Acute (16) Lower extremity pain, bilateral: Code(s): M79.604 - Pain in right leg; M79.605 - Pain in left leg Status: Acute (17) Localized swelling of both lower legs: Code(s): R22.43 - Localized swelling, mass and lump, lower limb, bilateral Status: Acute (18) Encounter to establish care: Code(s): Z76.89 - Persons encountering health services in other specified circumstances Status: Acute (19) Breast cancer: Code(s): C50.919 - Malignant neoplasm of unspecified site of unspecified female breast Status: Acute (20) Hyperlipidemia: Code(s): E78.5 - Hyperlipidemia, unspecified Status: Acute (21) Gait abnormality: Code(s): R26.9 - Unspecified abnormalities of gait and mobility Status: Acute (22) Debilitated: Code(s): R53.81 - Other malaise Status: Acute (23) Stenosis of aortic and mitral valves: Code(s): I08.0 - Rheumatic disorders of both mitral and aortic valves
[2023-05-03 13:38] LABS: SARS-CoV-2 RNA PCR Negative (Negative)
[2023-05-03 16:34] LABS: Glucose Point of Care 176 mg/dl (65-105)
== END 2023-05-03 17:25 | DRG 291 ==
LOC: ANHED 14:37 → ANHIMU 18:03 → ANH3MEDSUR 04-30 23:22
PROVIDERS: General Practice; Internal Medicine; Physician Assistant; Admitting Provider Internal Medicine; Emergency Provider Emergency Medicine; PCP Family Medicine; Visit Provider Family Medicine
DX: I11.0 Hypertensive heart disease with heart failure (principal); I50.43 Acute on chronic combined systolic (congestive) and diastolic (congestive) heart failure; E87.1 Hypo-osmolality and hyponatremia; F03.92 Unspecified dementia, unspecified severity, with psychotic disturbance; I48.19 Other persistent atrial fibrillation; E11.9 Type 2 diabetes mellitus without complications; E78.5 Hyperlipidemia, unspecified; D50.9 Iron deficiency anemia, unspecified; E03.9 Hypothyroidism, unspecified; F09 Unspecified mental disorder due to known physiological condition; N28.9 Disorder of kidney and ureter, unspecified; Z11.52 Encounter for screening for COVID-19; Z85.3 Personal history of malignant neoplasm of breast; Z79.01 Long term (current) use of anticoagulants; Z95.2 Presence of prosthetic heart valve
CPT/HCPCS: 36415; 70450; 71046; 80048; 80053; 82948; 83036; 83735; 83880; 84443; 84484; 85025; 85027; 85610; 85730; 87635; 93005; 96374; 97110; 97116; 97161; 97165; 97530; 97535; 99285; A9270; C8929; J1815; J1940; Q9957

== ENCOUNTER 2023-05-15 20:28 | Inpatient (IN) | payer MEDICARE, SELFPAY ==
[2023-05-15] VITALS (15 sets, daily range): BP systolic 111–159; BP diastolic 79–126; PULSE 92–126; RESP 9–33; TEMP 36.6; O2SAT 88–99
--- NOTE | ~2023-05-15 | XR_ITS ---
EXAMINATION: XR chest 1V portable DATE: 05/22/2023 13:34 INDICATION: Shortness of breath. TECHNIQUE: A single frontal view of the chest was obtained. COMPARISON: Chest single view 05/15/2023, CT abdomen and pelvis 04/21/2023 FINDINGS: There are reticular opacities in the mid and lower lung zones. No pleural effusion or pneum othorax. Cardiomegaly is noted. There are changes of aortic and mitral valve replacements. There is a closure device at left atrial appendage. Retained epicardial pacer wires are noted. IMPRESSION: 1. Interstitial opacities in the mid and lower lung zones, consistent with mild pulmonary edema and/o r mild chronic interstitial lung disease. 2. Cardiomegaly. Reviewed, dictated and finalized at location E. IMPRESSION: 1. Interstitial opacities in the mid and lower lung zones, consistent with mild pulmonary edema and/or mild chronic interstitial lung disease. 2. Cardiomegaly.
--- NOTE | ~2023-05-15 | XR_ITS ---
Supine and upright views of the abdomen Clinical history: Abdominal distention, emesis Findings: Bowel gas pattern is nonspecific. No definite evidence for obstruction or free air. No abno rmal mass lesion or calcification is seen. Osseous structures are intact. Impression: Nonspecific bowel gas pattern. Generalized ileus consideration. Reviewed, dictated and finalized at [facility]. Impression: Nonspecific bowel gas pattern. Generalized ileus consideration.
--- NOTE | ~2023-05-15 | XR_ITS ---
EXAMINATION: XR chest 1V portable Exam Date/Time: 05/15/2023 20:51 CDT HISTORY: cough, dyspnea Comparison: 04/26/2023. RESULT: Lines, tubes, and devices: Screw and plate cisternal fixation. Atrial occlusion device. Cardiac valv e replacements. Abandoned epicardial pacing wires. Lungs and pleura: Mild diffuse reticular opacities. Subsegmental left basilar opacity. Cardiomediastinal silhouette: Stable. Other: No acute osseous or upper abdominal finding. IMPRESSION: Subsegmental left basilar atelectasis/consolidation. Mild interstitial edema versus senescent change. Reviewed, dictated and finalized at location [facility]. IMPRESSION: Subsegmental left basilar atelectasis/consolidation. Mild interstitial edema ve rsus senescent change.
--- NOTE | 2023-05-15 20:39 | ED.SOB ---
HPI - SOB/Dyspnea General Chief Complaint: Shortness of Breath/Dyspnea Stated Complaint: COUGH, SOB X 2 DAYS, EMESIS X 1. Time Seen by Provider: 05/15/23 20:31 History of Present Illness HPI Narrative: 77-year-old female with history of dementia, paroxysmal atrial fibrillation on chronic anticoagulation with Eliquis, valvular heart disease, s/p by prosthetic aortic and mitral valve replacements, stage IV breast cancer, type 2 diabetes and hypothyroidism presents to emergency department via EMS from senior care for cough and shortness of breath for 2 days. Patient is reporting a dry cough, denies chest pain, hematemesis. She is reporting increased swelling in her lower extremities. She denies fever, nausea vomiting, diarrhea, abdominal pain, dysuria or hematuria. States she has been taking her medications as directed. Of note, patient was admitted on a 04/26/2023 for CHF exacerbation. She was hospitalized until 05/03/2023. Related Data Home Medications Medication Instructions Recorded Confirmed glipizide 10 mg tablet 15 mg PO DAILY 01/05/23 05/16/23 loratadine 10 mg tablet (Claritin) 10 mg PO DAILY PRN Allergy Symptoms 04/07/23 05/16/23 aspirin 81 mg chewable tablet 81 mg PO PRN PRN Chest Pain 04/26/23 05/16/23 (Aspirin Childrens) fluticasone propionate 50 1 spray intranasal Q12HR PRN 04/26/23 05/16/23 mcg/actuation nasal Congestion spray,suspension Allergies Allergy/AdvReac Type Severity Reaction Status Date / Time codeine Allergy Unknown Hallucinati Verified 04/26/23 13:29 ng doxycycline Allergy Unknown Unknown Verified 04/26/23 13:29 trimethobenzamide Allergy Unknown Nausea and Verified 04/26/23 13:29 Vomiting Review of Systems Review of Systems: CONSTITUTIONAL: Denies fever, chills, or sweats. EYES: Denies visual changes, redness, or discharge. ENT: See HPI CARDIOVASCULAR: See HPI RESPIRATORY: Denies cough or dyspnea. GASTROINTESTINAL: Denies abdominal pain, nausea, vomiting, or diarrhea. GENITOURINARY: Denies dysuria or hematuria. SKIN: Denies rash or itching. MUSCULOSKELETAL: Denies back pain, joint pain, or myalgia. NEUROLOGIC: Denies headache, numbness, or weakness. PSYCHIATRIC: Denies anxiety or depression. 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 Patient declined surgery. She has been treated with letrozole. She was seen as a new patient by oncologist Dr. Justin Crisostomo on 03/09/2023 who rec she resume the letrozole, which had been stopped 09/2022 for unknown reasons. Chronic anticoagulation Cognitive dysfunction Hyperlipidemia Hypertension Paroxysmal atrial fibrillation Type 2 diabetes mellitus Valvular heart disease Surgical History Surgical History History of aortic valve replacement with bioprosthetic valve History of left atrial appendage closure History of mitral valve replacement with bioprosthetic valve Family History Family History Mother Heart disease Father Cancer Sibling Cancer Social History Social History Social History: . No children. 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 Healthcare power of contract attorney: Camilo Rosa, niece. Code status: Full code. Smoking status: Never smoker Second hand tobacco smoke exposure: No Alcohol intake: never Substance use: never Substance use type: does not use Do You Feel Safe in your Home?: Yes Lack of Transportation: No Lack of Food: Never True Current Housing: I Have Housing Concerned About Future Housing: No Difficulty Paying Gas/Electric Bills: No Difficulty Paying for Meds: No Currently Unemployed: No Education: High School Diploma/GED Difficulty w/ Childca
--- NOTE | 2023-05-15 20:44 | ECG_ITS ---
Measurements Intervals [place] Rate: 121 P: * NM: * QRS: 223 QRSD: 86 T: 57 QT: 320 AVG RR: 494 QTc: 392 QTCB: 455 QTCF: 404 Interpretive Statements ATRIAL FIBRILLATION WITH RAPID VENTRICULAR RESPONSE WITH ABERRANT CONDUCTION OR VENTRICULAR PREMATURE COMPLEXES INDETERMINATE AXIS ABNORMAL ECG SEE SCANNED COPY FOR SIGNATURE MTDD
[2023-05-15 20:58] LABS: Basophils Percent Auto 0.8 % (0.2-1.2); Eosinophils Absolute Auto 0.1 K/mm3 (0-0.3); Eosinophils Percent Auto 1.2 % (0-4.4); Hematocrit 42.6 % (37.0-47.0); Hemoglobin 13.2 g/dL (12.0-15.0); Immature Granulocyte Absolute 0.01 K/mm3 (0.00-0.031); Immature Granulocyte Percent A 0.2 % (0-0.5); Lymphocytes Absolute Auto 0.47 K/mm3 (0.9-3.2); Lymphocytes Percent Auto 9.3 % (18.3-44.2); Mean Corpuscular Hemoglobin 25.8 pg (26-34); Mean Corpuscular Volume 83.4 fl (80-100); Mean Platelet Volume 10.1 fl (7.4-10.4); Monocytes Absolute Auto 0.4 K/mm3 (0.1-0.6); Monocytes Percent Auto 7.3 % (2.6-8.5); Neutrophils Absolute Auto 4.1 K/mm3 (1.3-6.7); Neutrophils Percent Auto 81.2 % (45.5-73.1); Platelet Count Result 125 k/mm3 (150-375); Red Blood Count 5.11 M/mm3 (4.2-5.4); White Blood Count 5.1 K/mm3 (4.5-10.0)
[2023-05-15 21:08] LABS: Alanine Aminotransferase 17 U/L (6-35); Albumin Level 3.5 g/dL (3.5-5.1); Alkaline Phosphatase 98 U/L (38-126); Anion Gap 8 mmol/L (4-12); Aspartate Amino Transferase 27 U/L (14-36); Bilirubin,Total 2.5 mg/dL (0.2-1.3); Blood Urea Nitrogen 18 mg/dL (7-17); Calcium 8.7 mg/dL (8.4-10.2); Carbon Dioxide 23 mmol/L (22-30); Chloride 99 mmol/L (98-107); Estimated CRCL calculation 51 ml/min; Estimated Glomerular Filt Rate > 60; Glucose 190 mg/dL (65-110); Potassium 4.3 mmol/L (3.4-5.0); Sodium 130 mmol/L (137-145)
[2023-05-15 21:09] LABS: Lactic Acid Reflex 2.4 mmol/L (0.7-2.0)
[2023-05-15 21:11] LABS: INR 1.6; Prothrombin Time 19.6 Seconds (11.1-14.7)
[2023-05-15 21:12] LABS: Partial Thromboplastin Time 35.3 Seconds (22.3-36.8)
[2023-05-15 21:14] LABS: Platelet Estimate Decreased (Adequate)
[2023-05-15 21:15] LABS: Anisocytosis 1+; Ovalocytes 1+; Poikilocytosis 1+; Schistocytes None Seen
[2023-05-15 21:28] LABS: NT Pro B Type Natriuretic Pept 18100 pg/mL (19.9-100); Troponin I 0.065 ng/mL (0.000-0.034)
[2023-05-15] MEDS: BENZONATATE 100 MG CAPSULE 200 MG PO (21:51)
[2023-05-15] MEDS: FUROSEMIDE INJ 40 MG/4 ML VIAL IV PUSH (21:55)
[2023-05-15] MEDS: ALBUTEROL SULFATE NEB 2.5 MG/3 ML INH INHALATION (22:13)
[2023-05-15] MEDS: IPRATROPIUM 0.5 MG/ALBUTEROL SULFATE 2.5 MG AMPUL.NEB 3 ML INHALATION (22:16)
[2023-05-15 22:25] LABS: Alveolar/Arterial O2 Gradient 43.3 mmHg; Fractional Inspired Oxygen 24 %; HCO3 ABG 21.4 mEq/l (22.0-26.0); Oxygen Content ABG 18.7 %vol (16.0-22.0); Oxygen Saturation ABG 97.1 % (95.0-100.0); PO2 ABG 88.6 mmHg (80.0-100.0); PO2 FiO2 Ratio Arterial Blood 3.69 %; Total Hemoglobin 14.1 g/dL (12.0-18.0)
[2023-05-15 22:27] LABS: Device NASAL CANNULA; Modified Allen's Test Pass; Site Drawn RIGHT RADIAL
[2023-05-15 22:34] LABS: Add Urine Microscopic? YES; Appearance Urine Clear (Clear); Bacteria Urine None Seen /hpf; Bilirubin Urine 1+ (Negative); Blood Urine Negative (Negative); Color Urine Dark Yellow (Yellow); Glucose Urine UA Negative (Negative); Ketones Urine Negative (Negative); Leukocyte Esterase Ur Negative LEU/UL (Negative); Nitrate Urine Negative (Negative); Non Pathogenic Casts >20; Protein Urine 2+ mg/dL (Negative); RBC Urine 0-2 /hpf (0-2); Specific Grav Ur 1.017 (1.001-1.035); Squamous Epithelial Cell Urine None Seen /hpf (Few); WBC Urine 0-5 /hpf (0-3); pH Urine 5.5 (5.0-9.0)
--- NOTE | 2023-05-15 22:57 | PM.IMHP ---
H&P: HPI History of Present Illness Date/Time: 05/15/23 22:57 Chief Complaint: cough Narrative: This is a 77-year-old female with past medical history significant for aortic stenosis mitral valve insufficiency, patient is status post mitral valve replacement and aortic valve replacement, hypertension, paroxysmal atrial fibrillation, type 2 diabetes mellitus, breast cancer, patient recently [facility] to [facility] was brought to the emergency room for evaluation due to cough and shortness of breath. Preliminary workup was significant for chest x-ray shows bilateral infiltrates of the lung. patient could not give much detail information meaningful to history taking. EXAMINATION:? XR chest 1V portable Exam Date/Time:? 05/15/2023 20:51 CDT HISTORY: cough, dyspnea ? Comparison:? 04/26/2023. RESULT: Lines, tubes, and devices:? Screw and plate cisternal fixation. Atrial occlusion device. Cardiac valve replacements. Abandoned epicardial pacing wires. Lungs and pleura:? Mild diffuse reticular opacities. Subsegmental left basilar opacity. Cardiomediastinal silhouette:? Stable. Other:? No acute osseous or upper abdominal finding. ? IMPRESSION: Subsegmental left basilar atelectasis/consolidation. Mild interstitial edema versus senescent change. 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 Patient declined surgery. She has been treated with letrozole. She was seen as a new patient by oncologist Dr. Justin Crisostomo on 03/09/2023 who rec she resume the letrozole, which had been stopped 09/2022 for unknown reasons. Chronic anticoagulation Cognitive dysfunction Hyperlipidemia Hypertension Paroxysmal atrial fibrillation Type 2 diabetes mellitus Valvular heart disease Surgical History Surgical History History of aortic valve replacement with bioprosthetic valve History of left atrial appendage closure History of mitral valve replacement with bioprosthetic valve Family History Family History Mother Heart disease Father Cancer Sibling Cancer Social History Social History Social History: . No children. 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 Healthcare power of sweet pickled fruit maker: Camilo Rosa, niece. Code status: Full code. Smoking status: Never smoker Second hand tobacco smoke exposure: No Alcohol intake: never Substance use: never Substance use type: does not use Do You Feel Safe in your Home?: Yes Lack of Transportation: No Lack of Food: Never True Current Housing: I Have Housing Concerned About Future Housing: No Difficulty Paying Gas/Electric Bills: No Difficulty Paying for Meds: No Currently Unemployed: No Education: High School Diploma/GED Difficulty w/ Childcare or Family Care: No Additional living arrangements comments: Currently staying with [id number] in [place]. She has no children. 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 Spiritual care concerns: No Meds Home Medications and Allergies Home Medications Medication Instructions Recorded Confirmed Type glipizide 10 mg tablet 15 mg PO DAILY 01/05/23 05/16/23 History acetaminophen 500 mg tablet 1,000 mg PO Q6H PRN Pain (Scale 01/14/23 05/16/23 Rx Score 1-3) #90 tabs levothyroxine 25 mcg tablet 25 mcg PO DAILY@0630 #30 tabs 01/14/23 05/16/23 Rx trazodone 50 mg tablet 50 mg PO HS #90 tabs 03/08/23 05/16/23 Rx loratadine 10 mg tablet (Claritin) 10 mg PO DAILY PRN Allergy Symptoms 04/07/23 05/16/23 History pravastatin 20 mg
[2023-05-15] MEDS: dilTIAZem HCl INJ 25 MG/5 ML VIAL 10 MG IV PUSH (23:12)
[2023-05-15] MEDS: PIPERACILLIN/TAZ 4.5G/NS 100ML 4.5 GM/100 ML BAG IVPB (23:13)
[2023-05-15 23:56] LABS: Reflex Lactic Acid Yes or No Add Lactic
[2023-05-16] VITALS (22 sets, daily range): BP systolic 89–118; BP diastolic 59–81; PULSE 58–125; RESP 16–24; TEMP 36.4–36.9; O2SAT 91–100
--- NOTE | 2023-05-16 00:01 | ADMGEN ---
This patient, Charito Rey, was admitted to IMU Room 947-43. [id number] Patient/family oriented to hospital policies and general routines including ID bracelet, bed and alarms, visiting hours, pain management, procedures, bathroom and other care routines, personal items, smoking policy, room service/diet, and visiting hours. Information on how to activate the Rapid Response Team has been discussed. Patient/Family are encouraged to report perceived risks to care and to ask questions if they do not understand what they are told or what they should do.
[2023-05-16] MEDS: VANCOMYCIN 2,000 MG/NS 500 ML 2,000 MG/500 ML BAG 250 MG IVPB (00:03)
[2023-05-16 00:14] LABS: Influenza A QL RT-PCR Negative (Negative); Influenza B QL RT-PCR Negative (Negative); RSV RNA, RT-PCR Negative (Negative); SARS-CoV-2 RNA PCR Negative (Negative)
[2023-05-16 00:53] LABS: MRSA (PCR) NOT DETECTED (NOT DETECTE)
[2023-05-16 01:26] LABS: Lactic Acid 4.4 mmol/L (0.7-2.0); Troponin I 0.058 ng/mL (0.000-0.034)
[2023-05-16 04:06] LABS: Estimated CRCL calculation 46 ml/min; Estimated Glomerular Filt Rate 60
[2023-05-16 04:48] LABS: Troponin I 0.053 ng/mL (0.000-0.034)
[2023-05-16 05:02] LABS: Lactic Acid Reflex 3.3 mmol/L (0.7-2.0)
[2023-05-16] MEDS: METOPROLOL SUCCINATE EXT REL 25 MG TABCR 75 MG PO (10:14)
[2023-05-16] MEDS: PRAVASTATIN SODIUM 20 MG TABLET PO (10:14)
[2023-05-16] MEDS: IPRATROPIUM 0.5 MG/ALBUTEROL SULFATE 2.5 MG AMPUL.NEB 3 ML INHALATION (17:52)
--- NOTE | 2023-05-16 18:08 | PM.IMPN ---
Progress Note: A&P Assessment and Plan (1) HAP (hospital-acquired pneumonia): Code(s): J18.9 - Pneumonia, unspecified organism; Y95 - Nosocomial condition Status: Acute (2) CHF exacerbation: Qualifiers: Heart failure type: systolic Qualified Code(s): I50.23 - Acute on chronic systolic (congestive) heart failure Code(s): I50.9 - Heart failure, unspecified Status: Acute (3) Atrial fibrillation with RVR: Code(s): I48.91 - Unspecified atrial fibrillation Status: Acute (4) Dementia, senile with delusions: Code(s): F03.92 - Unspecified dementia, unspecified severity, with psychotic disturbance Status: Acute (5) History of mitral valve replacement with bioprosthetic valve: Code(s): Z95.3 - Presence of xenogenic heart valve Status: Acute (6) History of aortic valve replacement with bioprosthetic valve: Code(s): Z95.3 - Presence of xenogenic heart valve Status: Acute (7) Valvular heart disease: Code(s): I38 - Endocarditis, valve unspecified Status: Acute (8) Combined systolic and diastolic congestive heart failure: Code(s): I50.40 - Unspecified combined systolic (congestive) and diastolic (congestive) heart failure Status: Acute (9) Sepsis: Code(s): A41.9 - Sepsis, unspecified organism Status: Acute (10) Urinary retention: Code(s): R33.9 - Retention of urine, unspecified Status: Acute Plan # sepsis secondary to community-acquired pneumonia - lactic acid is down trending, peaking at 4.4, down to 3.3, repeat in a.m. - antibiotics: Rocephin and azithromycin ( checking procalcitonin for a.m.) - MRSA nares negative, discontinue vancomycin - with fluid overload will try to minimize IV fluids - blood cultures pending - elevated troponin likely secondary to supply demand mismatch from sepsis, troponin peaked at 0.065, no chest pain, ACS ruled out -BP improved with IVF, will try to limit IVF with heart failure - no leukocytosis, if procalcitonin is negative, will need to reassess diagnosis of pneumonia # lower extremity edema -Patient has bilateral pitting edema with blanching erythema -with her sepsis and lactic acidosis we have to continue IV fluids - patient has significant elevated BNP 18k, following up with echocardiogram - echocardiogram 04/27/2023 shows EF 40-45%, grade 2 diastolic dysfunction # urinary retention - patient having difficulty voiding, placing Wright catheter with greater than 300 cc urine - will encourage patient to ambulate before removing Wright catheter, will try to remove Wright catheter prior to discharge - with the low blood pressures and lactic acidosis we will continue monitor strict I&O # chronic conditions - history of breast cancer: Outpatient follow-up with PCP - type 2 diabetes: Holding glipizide, continue sliding scale insulin, Accu-Cheks a.c. HS, hypoglycemia protocol, A1c 7.4 - chronic systolic and diastolic heart failure: With lactic acidosis we will need to continue monitor and hold off on diuresis at this time. echocardiogram ordered - senile dementia - atrial fibrillation with RVR: Restarted metoprolol, HR stable - insomnia: trazodone nightly - allergies: P.r.n. loratadine - hypothyroidism: Levothyroxine Diet: heart healthy DVT prophylaxis: SQ heparin Code status: DNR Disposition: back to [facility] in >3 days Time Spent With Patient Time: 40 minutes Subjective Date/time seen: 05/16/23 18:08 Interval history: patient seen examined. She continues to have a cough dyspnea. Will have p.r.n. DuoNebs. Patient likely has a community-acquired pneumonia causing the lactic acidosis and cough. With the severity of illness leading to sepsis elevated lactic acid and troponins without chest pain. She is not developing some bilateral lower extremity blanching erythema. patient having some urinary retention as well and we will place Wright catheter. Pooja
--- NOTE | 2023-05-16 20:09 | PC.NURSE ---
Pt had not urinated throughout the day. Bladder scan showed over 600 mls. Order for chadwick cath obtained from hospitalist. Pt refused chadwick even after speaking to niece/POA. Pt was adamant that she didn't have to urinate. Pt finally agreed to try. She urinated 900 mls immediately after getting on the BSC. Chadwick was not placed.
[2023-05-16] MEDS: guaiFENesin/DEXTROMETHORPHAN 10 ML UDC 5 ML PO (21:21)
[2023-05-16] MEDS: ACETAMINOPHEN 500 MG TABLET 1000 MG PO (21:21)
[2023-05-16] MEDS: traZODone HCL 50 MG TABLET PO (21:22)
[2023-05-16] MEDS: HEPARIN SODIUM 5,000 UNITS/ML VIAL 5000 UNITS SUB-Q (21:22)
[2023-05-16] MEDS: AZITHROMYCIN 500 MG/NS 250 ML 500 MG/250 ML BAG 250 MG IVPB (22:07)
[2023-05-17] VITALS (21 sets, daily range): BP systolic 93–119; BP diastolic 59–99; PULSE 72–112; RESP 16–28; TEMP 36.1–36.6; O2SAT 97–100
[2023-05-17 04:46] LABS: Basophils Percent Auto 0.4 % (0.2-1.2); Eosinophils Percent Auto 0.6 % (0-4.4); Hematocrit 40.5 % (37.0-47.0); Hemoglobin 12.3 g/dL (12.0-15.0); Immature Granulocyte Absolute 0.02 K/mm3 (0.00-0.031); Immature Granulocyte Percent A 0.4 % (0-0.5); Lymphocytes Absolute Auto 0.97 K/mm3 (0.9-3.2); Lymphocytes Percent Auto 19.5 % (18.3-44.2); Mean Corpuscular HGB Conc 30.4 g/dl (32-36); Mean Corpuscular Hemoglobin 26.7 pg (26-34); Mean Platelet Volume 10.6 fl (7.4-10.4); Monocytes Absolute Auto 0.4 K/mm3 (0.1-0.6); Monocytes Percent Auto 8.5 % (2.6-8.5); Neutrophils Absolute Auto 3.5 K/mm3 (1.3-6.7); Neutrophils Percent Auto 70.6 % (45.5-73.1); Platelet Count Result 103 k/mm3 (150-375)
[2023-05-17 04:55] LABS: Lactic Acid Reflex 1.5 mmol/L (0.7-2.0)
[2023-05-17 04:57] LABS: Alanine Aminotransferase 15 U/L (6-35); Albumin Level 3.2 g/dL (3.5-5.1); Alkaline Phosphatase 67 U/L (38-126); Anion Gap 7 mmol/L (4-12); Aspartate Amino Transferase 28 U/L (14-36); Bilirubin,Total 2.1 mg/dL (0.2-1.3); Blood Urea Nitrogen 28 mg/dL (7-17); Calcium 8.8 mg/dL (8.4-10.2); Carbon Dioxide 26 mmol/L (22-30); Chloride 101 mmol/L (98-107); Estimated CRCL calculation 41 ml/min; Estimated Glomerular Filt Rate 53; Glucose 131 mg/dL (65-110); Potassium 4.3 mmol/L (3.4-5.0); Sodium 134 mmol/L (137-145)
[2023-05-17 05:23] LABS: Procalcitonin 0.2 ng/mL
[2023-05-17 05:35] LABS: Anisocytosis 1+; Hypochromasia 1+; Platelet Estimate Decreased (Adequate)
[2023-05-17 05:36] LABS: Ovalocytes 1+; Poikilocytosis 1+; Schistocytes None Seen
[2023-05-17] MEDS: LEVOTHYROXINE SODIUM 25 MCG TABLET PO (05:46)
[2023-05-17] MEDS: HEPARIN SODIUM 5,000 UNITS/ML VIAL 5000 UNITS SUB-Q ×3 (05:47→21:10)
[2023-05-17] MEDS: IPRATROPIUM 0.5 MG/ALBUTEROL SULFATE 2.5 MG AMPUL.NEB 3 ML INHALATION ×3 (06:21→22:19)
--- NOTE | 2023-05-17 07:17 | PC.NURSE ---
Notified pt's niece, Camilo, that pt was moved to IMU room 204.
[2023-05-17] MEDS: PRAVASTATIN SODIUM 20 MG TABLET PO (08:55)
[2023-05-17] MEDS: LORATADINE 10 MG TABLET PO (08:56)
[2023-05-17] MEDS: METOPROLOL SUCCINATE EXT REL 25 MG TABCR 75 MG PO (08:56)
[2023-05-17] MEDS: FUROSEMIDE 40 MG TABLET PO (08:56)
--- NOTE | 2023-05-17 12:59 | PM.IMPN ---
Progress Note: A&P Assessment and Plan (1) Urinary retention: Code(s): R33.9 - Retention of urine, unspecified Status: Acute (2) Sepsis: Code(s): A41.9 - Sepsis, unspecified organism Status: Acute (3) HAP (hospital-acquired pneumonia): Code(s): J18.9 - Pneumonia, unspecified organism; Y95 - Nosocomial condition Status: Acute (4) CHF exacerbation: Qualifiers: Heart failure type: systolic Qualified Code(s): I50.23 - Acute on chronic systolic (congestive) heart failure Code(s): I50.9 - Heart failure, unspecified Status: Acute Plan #? sepsis secondary to community-acquired pneumonia, sepsis resolved - lactic acid is down trending, peaking at 4.4, down to 3.3, lactic acid normalized to 1.5 - antibiotics: Rocephin and azithromycin, continue for now - blood cultures pending, no leukocytosis, negative procalcitonin, may be a viral pneumonia? - elevated troponin likely secondary to supply demand mismatch from sepsis, troponin peaked at 0.065,? no chest pain, ACS ruled out -BP improved with IVF, will try to limit IVF with heart failure # lower extremity edema -Patient has bilateral pitting edema with blanching erythema - restarting home p.o. Lasix - patient has significant elevated BNP 18k, following up with echocardiogram - echocardiogram 04/27/2023 shows EF 40-45%, grade 2 diastolic dysfunction # urinary retention - patient having difficulty voiding, placing Wright catheter with greater than 300 cc urine - will encourage patient to ambulate before removing Wright catheter, will try to remove Wright catheter prior to discharge - with the low blood pressures and lactic acidosis we will continue monitor strict I&O - will do voiding trial soon # chronic conditions - history of breast cancer:? Outpatient follow-up with PCP - type 2 diabetes: Holding glipizide, continue sliding scale insulin, Accu-Cheks a.c. HS, hypoglycemia protocol, A1c 7.4 -? chronic systolic and diastolic heart failure: With lactic acidosis we will need to continue monitor and hold off on diuresis at this time -? senile dementia - atrial fibrillation with RVR: Restarted metoprolol, HR stable - insomnia:? trazodone nightly -? allergies: P.r.n. loratadine - hypothyroidism: Levothyroxine Diet:?heart healthy DVT prophylaxis:?SQ heparin Code status:? DNR Disposition:?back to [facility] in >3 days, downgrade from IMU Time Spent With Patient Time: 35 minutes Subjective Date/time seen: 05/17/23 12:59 Interval history: patient seen and examined. She is doing well no new complaints. Lactic acid has normalized to 1.5. We will resume Lasix diuresis. She still has lower extremity blanching erythema likely from Fluid retention. PT and OT consulted. Patient refuse Wright catheter and has appeared awake currently. We will continue monitor for retention. Ideally if patient ambulates, the retention should resolve. patient denies fever, chills, nausea, vomiting, diarrhea. She was slightly somnolent during exam. Review of Systems Review of Systems: 10 point ROS complete, negative other than what is specified in HPI. Exam Narrative: - GENERAL:? ? Pleasant elderly woman in no acute distress - EYES: EOMI. Anicteric. - HENT: Moist mucous membranes. - LUNGS: Clear to auscultation bilaterally, no wheezing, rhonchi, or rales. - CARDIOVASCULAR: Regular rate and rhythm. No murmur. No JVD. - ABDOMEN: Soft, non-tender and non-distended. No palpable masses. - EXTREMITIES: 2-3+ edema. Peripheral pulses 2+. Non-tender. bilateral lower extremity blanching erythema without warm to touch - NEUROLOGIC: No focal neurological deficits. CN II-XII grossly intact. - PSYCHIATRIC: Awake, Alert and oriented. Appropriate mood and affect. He is arousable but would fall sleep, slightly somnolent - SKIN: No rashes or lesions. Warm. - LYMPH: No cervical lymphadenopathy. Objective Data Vital Signs Vital Signs: Vital Sign
[2023-05-17] MEDS: guaiFENesin/DEXTROMETHORPHAN 10 ML UDC 5 ML PO (21:10)
[2023-05-17] MEDS: traZODone HCL 50 MG TABLET PO (21:10)
[2023-05-17] MEDS: AZITHROMYCIN 500 MG/NS 250 ML 500 MG/250 ML BAG 250 MG IVPB (21:10)
[2023-05-17] MEDS: FUROSEMIDE INJ 40 MG/4 ML VIAL IV PUSH (23:12)
[2023-05-18] VITALS (10 sets, daily range): BP systolic 101–115; BP diastolic 64–83; PULSE 78–117; RESP 12–24; TEMP 36–36.5; O2SAT 92–100
[2023-05-18 04:39] LABS: Hemoglobin 12.7 g/dL (12.0-15.0); Mean Corpuscular HGB Conc 33.4 g/dl (32-36); Mean Corpuscular Hemoglobin 30.6 pg (26-34); Mean Corpuscular Volume 91.6 fl (80-100); Mean Platelet Volume 10.7 fl (7.4-10.4); Platelet Count Result 120 k/mm3 (150-375); Red Blood Count 4.15 M/mm3 (4.2-5.4); Red Cell Distribution Width 26.8 % (11.5-14.5); White Blood Count 5.5 K/mm3 (4.5-10.0)
[2023-05-18 04:55] LABS: Anion Gap 7 mmol/L (4-12); Blood Urea Nitrogen 26 mg/dL (7-17); Calcium 8.6 mg/dL (8.4-10.2); Carbon Dioxide 28 mmol/L (22-30); Chloride 97 mmol/L (98-107); Estimated CRCL calculation 48 ml/min; Estimated Glomerular Filt Rate 60; Glucose 154 mg/dL (65-110); Potassium 3.5 mmol/L (3.4-5.0); Sodium 132 mmol/L (137-145)
[2023-05-18] MEDS: ACETAMINOPHEN 500 MG TABLET 1000 MG PO ×2 (05:59→22:23)
[2023-05-18] MEDS: HEPARIN SODIUM 5,000 UNITS/ML VIAL 5000 UNITS SUB-Q ×3 (06:00→21:06)
[2023-05-18] MEDS: LEVOTHYROXINE SODIUM 25 MCG TABLET PO (06:00)
[2023-05-18] MEDS: FUROSEMIDE 40 MG TABLET PO (08:09)
[2023-05-18] MEDS: METOPROLOL SUCCINATE EXT REL 25 MG TABCR 75 MG PO (08:09)
[2023-05-18] MEDS: PRAVASTATIN SODIUM 20 MG TABLET PO (08:09)
[2023-05-18] MEDS: guaiFENesin/DEXTROMETHORPHAN 10 ML UDC 5 ML PO (08:12)
[2023-05-18] MEDS: IPRATROPIUM 0.5 MG/ALBUTEROL SULFATE 2.5 MG AMPUL.NEB 3 ML INHALATION (08:13)
--- NOTE | 2023-05-18 13:23 | PM.IMPN ---
Progress Note: A&P Assessment and Plan (1) Urinary retention: Code(s): R33.9 - Retention of urine, unspecified Status: Acute (2) Sepsis: Code(s): A41.9 - Sepsis, unspecified organism Status: Acute (3) HAP (hospital-acquired pneumonia): Code(s): J18.9 - Pneumonia, unspecified organism; Y95 - Nosocomial condition Status: Acute (4) CHF exacerbation: Qualifiers: Heart failure type: systolic Qualified Code(s): I50.23 - Acute on chronic systolic (congestive) heart failure Code(s): I50.9 - Heart failure, unspecified Status: Acute Plan #? sepsis secondary to community-acquired pneumonia, sepsis resolved - lactic acid is down trending, peaking at 4.4, down to 3.3, lactic acid normalized to 1.5 - antibiotics: Rocephin and azithromycin, will discontinue ABx in AM - blood cultures pending, no leukocytosis, negative procalcitonin - elevated troponin likely secondary to supply demand mismatch from sepsis # lower extremity edema - continue lasix (dose of IV lasix given overnight) - patient has significant elevated BNP 18k, following up with echocardiogram - echocardiogram 04/27/2023 shows EF 40-45%, grade 2 diastolic dysfunction # urinary retention - patient having difficulty voiding, placing Wright catheter with greater than 300 cc urine - will do voiding trial soon - PT and OT consulted # chronic conditions - history of breast cancer:? Outpatient follow-up with PCP - type 2 diabetes: Holding glipizide, continue sliding scale insulin, Accu-Cheks a.c. HS, hypoglycemia protocol, A1c 7.4 -?chronic systolic and diastolic heart failure: restart diuresis -?senile dementia - atrial fibrillation with RVR: metoprolol - insomnia:? trazodone nightly -?allergies: P.r.n. loratadine - hypothyroidism: Levothyroxine Diet:?heart healthy DVT prophylaxis:?SQ heparin Code status:? DNR Disposition:?back to [facility] in >3 days, downgrade to med/surg Time Spent With Patient Time: 35 minutes Subjective Date/time seen: 05/18/23 13:23 Interval history: Patient seen and examined. She has some expiratory wheezing which she states is normal for her. we are completing antibiotics. Patient may downgrade to med surge floor. we are trying to wean off oxygen, she is on 2L O2 with no home oxygen therapy. She was given a dose of IV lasix overnight. patient to continue working with PT and OT. We are anticipating discharge soon. She denies fever, chills, nausea vomiting, diarrhea. she has no longer having episodes of somnolence, mentation is improving. Review of Systems Review of Systems: 10 point ROS complete, negative other than what is specified in HPI. Exam Narrative: - GENERAL:? ? Pleasant elderly woman in no acute distress - EYES: EOMI. Anicteric. - HENT: Moist mucous membranes. - LUNGS: Clear to auscultation bilaterally, no wheezing, rhonchi, or rales. - CARDIOVASCULAR: Regular rate and rhythm. No murmur. No JVD. - ABDOMEN: Soft, non-tender and non-distended. No palpable masses. - EXTREMITIES: 2+ edema. Peripheral pulses 2+. Non-tender. Decreasing erythema lower extremities - NEUROLOGIC: No focal neurological deficits. CN II-XII grossly intact. - PSYCHIATRIC: Awake, Alert and oriented. Appropriate mood and affect. - SKIN: No rashes or lesions. Warm. - LYMPH: No cervical lymphadenopathy. Objective Data Vital Signs Vital Signs: Vital Signs - 24 hr 05/17/23 13:26 05/17/23 13:29 05/17/23 13:38 Temperature Pulse Rate 96 97 105 H Respiratory Rate 20 20 22 H Blood Pressure Pulse Oximetry 98 Oxygen Delivery Nasal Cannula Oxygen Flow Rate 3 05/17/23 16:00 05/17/23 16:00 05/17/23 19:42 Temperature 36.6 C 36.4 C Pulse Rate 72 104 H 96 Respiratory Rate 28 H 24 H Blood Pressure 119/99 H 108/73 Pulse Oximetry 98 99 Oxygen Delivery Oxygen Flow Rate 05/17/23 22:19 05/17/23 22:27 05/17/23 23:59 Temperature 36.2 C L Pulse Rate 10
--- NOTE | 2023-05-18 14:33 | PCOTNOTE ---
Attempted to see Patient for OT treatment session at this time. Patient with PT for their treatment session. Patient not available.
[2023-05-18] MEDS: traZODone HCL 50 MG TABLET PO (21:03)
[2023-05-18] MEDS: AZITHROMYCIN 500 MG/NS 250 ML 500 MG/250 ML BAG 250 MG IVPB (21:49)
--- NOTE | 2023-05-18 22:21 | PC.NURSE ---
This patient, Charito Rey, was transferred to [3rd Med-surg ] on 05/18/23 at 2221. Personal belongings sent with patient. Report given to [EDGARDO Jones ]. Appropriate documentation sent with patient. Notified pt's niece, Camilo [phone], of pt transfer.
[2023-05-19] VITALS (8 sets, daily range): BP systolic 111–135; BP diastolic 65–80; PULSE 51–104; RESP 13–20; TEMP 36.1–36.4; O2SAT 92–96
[2023-05-19] MEDS: HEPARIN SODIUM 5,000 UNITS/ML VIAL 5000 UNITS SUB-Q ×3 (06:54→21:19)
[2023-05-19] MEDS: LEVOTHYROXINE SODIUM 25 MCG TABLET PO (06:54)
[2023-05-19 07:54] LABS: Anion Gap 11 mmol/L (4-12); Blood Urea Nitrogen 28 mg/dL (7-17); Calcium 8.9 mg/dL (8.4-10.2); Carbon Dioxide 22 mmol/L (22-30); Chloride 97 mmol/L (98-107); Estimated CRCL calculation 48 ml/min; Estimated Glomerular Filt Rate 60; Glucose 128 mg/dL (65-110); Sodium 130 mmol/L (137-145)
[2023-05-19] MEDS: PRAVASTATIN SODIUM 20 MG TABLET PO (09:00)
[2023-05-19] MEDS: FUROSEMIDE 40 MG TABLET PO (09:00)
[2023-05-19] MEDS: METOPROLOL SUCCINATE EXT REL 25 MG TABCR 75 MG PO (09:00)
--- NOTE | 2023-05-19 11:46 | PM.IMPN ---
Progress Note: A&P Assessment and Plan (1) Urinary retention: Code(s): R33.9 - Retention of urine, unspecified Status: Acute (2) Sepsis: Code(s): A41.9 - Sepsis, unspecified organism Status: Acute (3) HAP (hospital-acquired pneumonia): Code(s): J18.9 - Pneumonia, unspecified organism; Y95 - Nosocomial condition Status: Acute (4) CHF exacerbation: Qualifiers: Heart failure type: systolic Qualified Code(s): I50.23 - Acute on chronic systolic (congestive) heart failure Code(s): I50.9 - Heart failure, unspecified Status: Acute Plan # urinary retention - patient having difficulty voiding, placing Wright catheter with greater than 300 cc urine - voiding trial today, remove Wright - PT and OT consulted #? sepsis secondary to community-acquired pneumonia, sepsis resolved - lactic acid is down trending, peaking at 4.4, down to 3.3, lactic acid normalized to 1.5 - antibiotics: completed course of Rocephin azithromycin - blood cultures pending, no leukocytosis, negative procalcitonin - elevated troponin likely secondary to supply demand mismatch from sepsis # lower extremity edema - patient has significant elevated BNP 18k, following up with echocardiogram - echocardiogram 04/27/2023 shows EF 40-45%, grade 2 diastolic dysfunction - may continue p.o. Lasix # chronic conditions - history of breast cancer:? Outpatient follow-up with PCP - type 2 diabetes: Holding glipizide, continue sliding scale insulin, Accu-Cheks a.c. HS, hypoglycemia protocol, A1c 7.4 -?chronic systolic and diastolic heart failure: restart diuresis -?senile dementia - atrial fibrillation with RVR: metoprolol - insomnia:? trazodone nightly -?allergies: P.r.n. loratadine - hypothyroidism: Levothyroxine Diet:?heart healthy DVT prophylaxis:?SQ heparin Code status:? DNR Disposition:?back to [facility] tomorrow Time Spent With Patient Time: 35 minutes Subjective Date/time seen: 05/19/23 11:46 Interval history: patient seen examined. She is doing well no new complaints. we will try removing Wright to see if she can start waiting and if urinary retention has resolved. If she fails then we will discharge back to [facility] with Wright catheter. Continue medications with p.o. diuretics, plan for discharge back to nursing facility tomorrow. Patient denies fever, chills, nausea vomiting diarrhea chest pain, shortness a path. Review of Systems Review of Systems: 10 point ROS complete, negative other than what is specified in HPI. Exam Narrative: - GENERAL:? ? Pleasant chronically ill-appearing elderly woman in no acute distress - EYES: EOMI. Anicteric. - HENT: Moist mucous membranes. cyanotic lips - LUNGS: Clear to auscultation bilaterally, no wheezing, rhonchi, or rales. - CARDIOVASCULAR: Regular rate and rhythm. No murmur. No JVD. - ABDOMEN: Soft, non-tender and non-distended. No palpable masses. - EXTREMITIES: 1+ edema. Peripheral pulses 2+. Non-tender. Decreasing erythema lower extremities - NEUROLOGIC: No focal neurological deficits. CN II-XII grossly intact. - PSYCHIATRIC: Awake, Alert and oriented. Appropriate mood and affect. - SKIN: No rashes or lesions. Warm. - LYMPH: No cervical lymphadenopathy. Objective Data Vital Signs Vital Signs: Vital Signs - 24 hr 05/18/23 12:02 05/18/23 16:00 05/18/23 19:55 Temperature 36.1 C L 36.0 C L 36.5 C Pulse Rate 82 78 90 Respiratory Rate 20 24 H 20 Blood Pressure 114/66 107/64 101/64 Pulse Oximetry 95 92 97 Oxygen Delivery 05/19/23 03:08 05/18/23 22:45 05/19/23 08:00 Temperature 36.1 C L 36.4 C L Pulse Rate 106 H 104 H Respiratory Rate 16 17 Blood Pressure 102/74 118/71 Pulse Oximetry 96 94 92 Oxygen Delivery Room Air 05/19/23 08:00 05/19/23 09:05 Temperature 36.3 C L Pulse Rate 72 Respiratory Rate 18 Blood Pressure 135/65 Pulse Oximetry 96 Oxygen Delivery Room Air Intake/Output Int
--- NOTE | 2023-05-19 14:01 | PCPTNOTE ---
Attempted to see PT this afternoon however pt refused PT x 2 stating that she is just too tired and maybe tomorrow.
[2023-05-19] MEDS: IPRATROPIUM 0.5 MG/ALBUTEROL SULFATE 2.5 MG AMPUL.NEB 3 ML INHALATION (14:54)
[2023-05-19] MEDS: traZODone HCL 50 MG TABLET PO (21:19)
[2023-05-19] MEDS: ACETAMINOPHEN 500 MG TABLET 1000 MG PO (21:22)
[2023-05-20] VITALS (12 sets, daily range): BP systolic 110–122; BP diastolic 67–98; PULSE 70–117; RESP 14–24; TEMP 36.3–36.4; O2SAT 90–94
[2023-05-20] MEDS: HEPARIN SODIUM 5,000 UNITS/ML VIAL 5000 UNITS SUB-Q ×2 (06:04→13:41)
[2023-05-20] MEDS: LEVOTHYROXINE SODIUM 25 MCG TABLET PO (06:04)
[2023-05-20 06:47] LABS: Anion Gap 4 mmol/L (4-12); Blood Urea Nitrogen 29 mg/dL (7-17); Calcium 8.6 mg/dL (8.4-10.2); Carbon Dioxide 27 mmol/L (22-30); Chloride 95 mmol/L (98-107); Estimated CRCL calculation 48 ml/min; Estimated Glomerular Filt Rate 60; Glucose 137 mg/dL (65-110); Potassium 3.9 mmol/L (3.4-5.0); Sodium 126 mmol/L (137-145)
[2023-05-20] MEDS: PRAVASTATIN SODIUM 20 MG TABLET PO (08:58)
[2023-05-20] MEDS: METOPROLOL SUCCINATE EXT REL 25 MG TABCR 75 MG PO (08:58)
[2023-05-20 11:29] LABS: Glucose Point of Care 237 mg/dl (65-105)
[2023-05-20 11:57] LABS: Sodium Urine Random < 5 meq/L
[2023-05-20] MEDS: INSULIN ASPART (*BKC) 100 UNITS/ML SUB-Q ×2 (13:41→17:02)
[2023-05-20] MEDS: predniSONE 20 MG TABLET 40 MG PO (13:43)
--- NOTE | 2023-05-20 14:31 | PM.CNNEP ---
Assessment and Plan Assessment and plan (1) Hyponatremia: Code(s): E87.1 - Hypo-osmolality and hyponatremia Status: Acute Assessment and Plan: was running ~ 130 - 134mmol/L in April 2023 acute drop to 126mmmol/L during this admission in the context of diuretic therapy subsequently, diuresis on hold risk factors of low sodium: CHF/valvular heart disease breast cancer thyroid disease chronic need for diuretic therapy urinary retention pneumonia COPD (?) for completeness, check TSH, cortisol, SPEP, and UPEP; follow-up on serum/urine osmolality check urine electrolytes head CT and CXR noted add fluid restriction if sodium continues to worsen, consider salt tabs with diuretic therapy follow trend of repeat sodium levels (2) CHF exacerbation: Qualifiers: Heart failure type: systolic Qualified Code(s): I50.23 - Acute on chronic systolic (congestive) heart failure Code(s): I50.9 - Heart failure, unspecified Status: Acute Assessment and Plan: diuretics on hold due to #1 follow respiratory status follow I/Os and daily weights (3) Pneumonia: Code(s): J18.9 - Pneumonia, unspecified organism Status: Acute Assessment and Plan: suggestive by admission imaging on antibiotics follow culture data (4) Urinary retention: Code(s): R33.9 - Retention of urine, unspecified Status: Acute Assessment and Plan: chadwick catheter in place voiding trial when more stable will continue follow patient with you while she remains hospitalized make further recommendations as deemed necessary. Thank you for allowing me to participate in the care of this patient. History of Present Illness Reason for Consult Consult date: 05/20/23 Reason for consult: hyponatremia Chief Complaint Chief complaint: CHF exacerbation, HAP History of Present Illness Narrative: The patient is a 77-year-old female with a past medical history as outlined below who presented to [facility] Emergency Room from her nursing facility for further evaluation of shortness of breath. The patient reports that she has had shortness of breath in association with a dry cough for last 2 or 3 days if not longer. She denies any associated chest pain sputum production, or her med emesis. In conjunction with her worsening shortness of breath has been increased lower extremity swelling edema as well. She reports no fevers, nausea, vomiting, diarrhea, abdominal pain, dysuria, or hematuria. She reports compliance with her medications as well. It should be noted that she does have a history of congestive heart failure and was hospitalized about a month ago for a CHF exacerbation as well. Given these constellation of symptoms in conjunction with her known past medical history, she presented to the emergency room for further assessment Workup and evaluation emergency room demonstrated the patient be hemodynamically stable but with the noted complaints of shotness of breath. routine blood test emesis CBC without a significant leukocytosis an ABG that was otherwise unremarkable. However, her BNP was quite elevated 18,100 and her chest x-ray showed evidence of subsegmental left bibasilar atelectasis/ consolidation in association with mild interstitial edema. Her lactic acid was mildly elevated 2.4 and her EKG just showed AFib with RVR with a rate of 121. Her urinalysis was otherwise unremarkable. For atrial fibrillation, she received IV cardizem for rate control and was given IV diuretics for her presumed CHF exacerbation. There was a concern for possible pneumonia as well so after appropriate cultures were obtained, she was started on IV antibiotic therapy as well. She was subsequently admitted to the hospital for further evaluation therapy. Since her admission to the hospital, her fluid/volume status has improved with IV diuretic therapy and her overall respiratory
[2023-05-20] MEDS: IPRATROPIUM 0.5 MG/ALBUTEROL SULFATE 2.5 MG AMPUL.NEB 3 ML INHALATION ×2 (14:42→20:24)
--- NOTE | 2023-05-20 14:47 | PM.IMPN ---
Progress Note: A&P Assessment and Plan (1) Urinary retention: Code(s): R33.9 - Retention of urine, unspecified Status: Acute (2) Sepsis: Code(s): A41.9 - Sepsis, unspecified organism Status: Acute (3) HAP (hospital-acquired pneumonia): Code(s): J18.9 - Pneumonia, unspecified organism; Y95 - Nosocomial condition Status: Acute (4) CHF exacerbation: Qualifiers: Heart failure type: systolic Qualified Code(s): I50.23 - Acute on chronic systolic (congestive) heart failure Code(s): I50.9 - Heart failure, unspecified Status: Acute (5) COPD exacerbation: Code(s): J44.1 - Chronic obstructive pulmonary disease with (acute) exacerbation Status: Acute Plan # hyponatremia - patient has chronic hyponatremia but now acutely dropped to 126 sodium - checking urine osmolarity, serum osmolality, urine sodium - holding Lasix - consulting classified advertising supervisor Dr. Agarwal #COPD? - patient has significant expiratory wheezing on lung exam. unclear if this is a cardiac wheeze or undiagnosed COPD. patient has moderate pulmonary hypertension may be secondary to pulmonary disease - starting prednisone 40 mg daily - changing p.r.n. DuoNebs to schedule DuoNebs q.6 hours - patient does not appear to have home inhalers #? sepsis secondary to community-acquired pneumonia, sepsis resolved - lactic acid is down trending, peaking at 4.4, down to 3.3, lactic acid normalized to 1.5 - antibiotics: completed course of Rocephin azithromycin - blood cultures pending, no leukocytosis, negative procalcitonin - elevated troponin likely secondary to supply demand mismatch from sepsis # urinary retention, resolved - patient having difficulty voiding, placing Wright catheter with greater than 300 cc urine - PT and OT consulted # lower extremity edema - patient has significant elevated BNP 18k - echocardiogram 04/27/2023 shows EF 40-45%, grade 2 diastolic dysfunction, moderate pulmonary hypertension # chronic conditions - history of breast cancer:? Outpatient follow-up with PCP - type 2 diabetes: Holding glipizide, continue sliding scale insulin, Accu-Cheks a.c. HS, hypoglycemia protocol, A1c 7.4 -?chronic systolic and diastolic heart failure: restart diuresis -?senile dementia - atrial fibrillation with RVR: metoprolol - insomnia:? trazodone nightly -?allergies: P.r.n. loratadine - hypothyroidism: Levothyroxine Diet:?heart healthy DVT prophylaxis:?SQ heparin Code status:? DNR [facility] Time Spent With Patient Time: 35 minutes Subjective Date/time seen: 05/20/23 14:47 Interval history: Patient seen and examined. She is having some expiratory wheezing which we will give some prednisone and DuoNeb. her sodium has dropped to 126, this may be secondary to diuresis. I have held the Lasix and am consulting classified advertising supervisor. I have also ordered lab serum osmolality, urine osmolality urine sodium. we will need to continue trending the sodium as this is the lowest she has ever been. Review of Systems Review of Systems: 10 point ROS complete, negative other than what is specified in HPI. Exam Narrative: - GENERAL:? ? Pleasant chronically ill-appearing elderly woman in no acute distress - EYES: EOMI. Anicteric. - HENT: Moist mucous membranes. cyanotic lips - LUNGS: expiratory wheezing in all lung pires - CARDIOVASCULAR: Regular rate and rhythm. No murmur. No JVD. - ABDOMEN: Soft, non-tender and non-distended. No palpable masses. - EXTREMITIES: 1+ edema. Peripheral pulses 2+. Non-tender. Decreasing erythema lower extremities - NEUROLOGIC: No focal neurological deficits. CN II-XII grossly intact. - PSYCHIATRIC: Awake, Alert and oriented. Appropriate mood and affect. - SKIN: No rashes or lesions. Warm. - LYMPH: No cervical lymphadenopathy. Objective Data Vital Signs Vital Signs: Vital Signs - 24 hr 05/19/23 14:50 05/19/23 14:59 05/19/23 15:49
[2023-05-20 16:34] LABS: Glucose Point of Care 212 mg/dl (65-105)
[2023-05-20 17:35] LABS: Anion Gap 7 mmol/L (4-12); Blood Urea Nitrogen 30 mg/dL (7-17); Carbon Dioxide 23 mmol/L (22-30); Chloride 97 mmol/L (98-107); Estimated CRCL calculation 48 ml/min; Estimated Glomerular Filt Rate 60; Glucose 184 mg/dL (65-110); Potassium 4.3 mmol/L (3.4-5.0); Sodium 127 mmol/L (137-145)
[2023-05-20] MEDS: guaiFENesin/DEXTROMETHORPHAN 10 ML UDC 5 ML PO (18:07)
[2023-05-20 20:36] LABS: Glucose Point of Care 241 mg/dl (65-105)
[2023-05-21] VITALS (19 sets, daily range): BP systolic 107–114; BP diastolic 76–91; PULSE 52–123; RESP 16–22; TEMP 36.2–37; O2SAT 92–95
[2023-05-21 02:15] LABS: Creatinine Urine 97.9 mg/dL; Total Protein Urine Random 25 mg/dL; Urea Random Urine 1123 MG/DL
[2023-05-21 02:16] LABS: Sodium Urine Random < 5 meq/L
[2023-05-21 02:17] LABS: Ur Ttl Prot Creatinine Ratio < 0.26 mg/mg (0-0.20)
[2023-05-21] MEDS: IPRATROPIUM 0.5 MG/ALBUTEROL SULFATE 2.5 MG AMPUL.NEB 3 ML INHALATION ×4 (02:39→19:33)
[2023-05-21 06:42] LABS: Hematocrit 45.9 % (37.0-47.0); Hemoglobin 14.3 g/dL (12.0-15.0); Immature Platelet Fraction Pct 5.1 % (0.9-11.2); Mean Corpuscular HGB Conc 31.2 g/dl (32-36); Mean Corpuscular Hemoglobin 26.5 pg (26-34); Mean Platelet Volume 10.2 fl (7.4-10.4); Platelet Count Result 173 k/mm3 (150-375); Red Cell Distribution Width 24.2 % (11.5-14.5); White Blood Count 5.4 K/mm3 (4.5-10.0)
[2023-05-21 06:59] LABS: Anion Gap 7 mmol/L (4-12); Blood Urea Nitrogen 30 mg/dL (7-17); Calcium 8.9 mg/dL (8.4-10.2); Carbon Dioxide 26 mmol/L (22-30); Chloride 96 mmol/L (98-107); Estimated CRCL calculation 44 ml/min; Estimated Glomerular Filt Rate 53; Glucose 196 mg/dL (65-110); Magnesium 2.2 mg/dL (1.6-2.3); Potassium 4.2 mmol/L (3.4-5.0); Sodium 129 mmol/L (137-145)
[2023-05-21 08:28] LABS: Glucose Point of Care 227 mg/dl (65-105)
[2023-05-21] MEDS: predniSONE 20 MG TABLET 40 MG PO (08:30)
[2023-05-21] MEDS: METOPROLOL SUCCINATE EXT REL 25 MG TABCR 75 MG PO (08:30)
[2023-05-21] MEDS: PRAVASTATIN SODIUM 20 MG TABLET PO (08:31)
[2023-05-21] MEDS: guaiFENesin/DEXTROMETHORPHAN 10 ML UDC 5 ML PO (09:37)
[2023-05-21] MEDS: INSULIN ASPART (*BKC) 100 UNITS/ML SUB-Q ×3 (09:38→17:23)
[2023-05-21] MEDS: ACETAMINOPHEN 500 MG TABLET 1000 MG PO (11:35)
--- NOTE | 2023-05-21 12:06 | PM.PNNEP ---
Progress Note: A&P Assessment and Plan (1) Hyponatremia: Code(s): E87.1 - Hypo-osmolality and hyponatremia Status: Acute Assessment and Plan: improving was running ~ 130 - 134mmol/L in April 2023 acute drop to 126mmmol/L during this admission in the context of diuretic therapy subsequently, diuresis on hold risk factors of low sodium: CHF/valvular heart disease breast cancer thyroid disease chronic need for diuretic therapy urinary retention pneumonia COPD (?) evaluation to date: TSH and cortisol okay urine electrolytes are prerenal SPEP/UPEP and serum/urine osmo pending head CT and CXR noted given worsening CHF symtoms, will start salt tabs with diuretic therapy follow trend of repeat sodium levels (2) CHF exacerbation: Qualifiers: Heart failure type: systolic Qualified Code(s): I50.23 - Acute on chronic systolic (congestive) heart failure Code(s): I50.9 - Heart failure, unspecified Status: Acute Assessment and Plan: diuretics were on hold due to #1 however, will restart today (05/20) follow respiratory status follow I/Os and daily weights (3) Pneumonia: Code(s): J18.9 - Pneumonia, unspecified organism Status: Acute Assessment and Plan: suggestive by admission imaging on antibiotics follow culture data (4) Urinary retention: Code(s): R33.9 - Retention of urine, unspecified Status: Acute Assessment and Plan: chadwick catheter in place voiding trial failed Urololgy consuted Will continue to follow. Subjective Date/time seen: 05/21/23 12:06 Interval history: Follow-up for acute on chronic hyponatremia. Sodium doing better with holding diuretic therapy but her volume status/CHF seems to be doing worse as noted by her fluctuating respiratory status in conjunction with increased lower extremity edema as well; no other issues noted overnight or earlier this morning. Exam Narrative: General: elderly female in mild respiratory distress Heart: normal S1 and S2; no rub Lungs: diffuse crackles noted Abdomen: soft, nontender, nondistended, positive bowel sounds Extremities: no cyanosis or clubbing; 1 - 2+ edema Skin: warm and dry Objective Data Vital Signs Vital Signs: Vital Signs Temp Pulse Resp BP Pulse Ox O2 Del Method 05/21/23 12:00 98.6 F 52 L 16 109/76 93 05/21/23 08:00 93 05/21/23 08:00 93 Room Air 05/21/23 08:30 91 05/21/23 07:57 94 Room Air 05/21/23 07:50 82 18 05/21/23 04:00 98 05/21/23 02:46 84 20 05/21/23 02:40 82 20 05/21/23 00:00 98 05/20/23 20:00 97 05/20/23 20:51 97.5 F L 101 H 24 H 122/67 93 05/20/23 20:29 93 Room Air 05/20/23 20:26 86 22 H 05/20/23 20:00 Room Air 05/20/23 16:00 105 H Intake/Output Intake/Output: Intake & Output 05/18/23 05/19/23 05/20/23 05/21/23 23:59 23:59 23:59 23:59 Intake Total 976 613 3961 530 Output Total 850 175 800 600 Balance -240 462 960 -70 Meds/Results Medications: Active Medications Generic Name Dose Route Start Last Admin Trade Name Freq PRN Reason Stop Dose Admin Acetaminophen 1,000 mg 05/16/23 01:55 05/21/23 11:35 Acetaminophen 500 Mg Tablet PO 1,000 mg Q6H PRN Administration Pain (Scale Score 1-3) Albuterol/Ipratropium 3 ml 05/20/23 14:00 05/21/23 14:14 Ipratropium 0.5 Mg/Albuterol Sulfate 2.5 Mg Ampul.Neb 3 Ml INHALATION 3 ml Q6HRT ROSA ISELA Administration Dextrose 12.5 gm 05/20/23 10:04 Dextrose 50% 25 Gm/50 Ml Syringe IV PUSH PRN PRN Hypoglycemia Protocol Fluticasone Propionate 1 spray 05/16/23 01:55 Fluticasone Propionate 0.05% Na Spr 16 Gm Btl (*Bkc) NASAL Q12HR PRN Congestion Furosemide 40 mg 05/17/23 09:00 05/19/23 09:00 Furosemide 40 Mg Tablet PO 40 mg DAILY ROSA ISELA Administration Furos
--- NOTE | 2023-05-21 12:06 | P.PNNP_ITS ---
Progress Note: A&P Assessment and Plan (1) Hyponatremia: Code(s): E87.1 - Hypo-osmolality and hyponatremia Status: Acute Assessment and Plan: * improving * was running ~ 130 - 134mmol/L in April 2023 * acute drop to 126mmmol/L during this admission in the context of diuretic therapy * subsequently, diuresis on hold * risk factors of low sodium: * CHF/valvular heart disease * breast cancer * thyroid disease * chronic need for diuretic therapy * urinary retention * pneumonia * COPD (?) * evaluation to date: * TSH and cortisol okay * urine electrolytes are prerenal * SPEP/UPEP and serum/urine osmo pending * head CT and CXR noted * given worsening CHF symtoms, will start salt tabs with diuretic therapy * follow trend of repeat sodium levels (2) CHF exacerbation: Qualifiers: Heart failure type: systolic Qualified Code(s): I50.23 - Acute on chronic systolic (congestive) heart failure Code(s): I50.9 - Heart failure, unspecified Status: Acute Assessment and Plan: * diuretics were on hold due to #1 * however, will restart today (05/20) * follow respiratory status * follow I/Os and daily weights (3) Pneumonia: Code(s): J18.9 - Pneumonia, unspecified organism Status: Acute Assessment and Plan: * suggestive by admission imaging * on antibiotics * follow culture data (4) Urinary retention: Code(s): R33.9 - Retention of urine, unspecified Status: Acute Assessment and Plan: * chadwick catheter in place * voiding trial failed * Urololgy consuted Will continue to follow. Subjective Date/time seen: 05/21/23 12:06 Interval history: Follow-up for acute on chronic hyponatremia. Sodium doing better with holding diuretic therapy but her volume status/CHF seems to be doing worse as noted by her fluctuating respiratory status in conjunction with increased lower extremity edema as well; no other issues noted overnight or earlier this morning. Exam Narrative: General: elderly female in mild respiratory distress Heart: normal S1 and S2; no rub Lungs: diffuse crackles noted Abdomen: soft, nontender, nondistended, positive bowel sounds Extremities: no cyanosis or clubbing; 1 - 2+ edema Skin: warm and dry Objective Data Vital Signs Vital Signs: Vital Signs Temp Pulse Resp BP Pulse Ox O2 Del Method 05/21/23 12:00 98.6 F 52 L 16 109/76 93 05/21/23 08:00 93 05/21/23 08:00 93 Room Air 05/21/23 08:30 91 05/21/23 07:57 94 Room Air 05/21/23 07:50 82 18 05/21/23 04:00 98 05/21/23 02:46 84 20 05/21/23 02:40 82 20 05/21/23 00:00 98 05/20/23 20:00 97 05/20/23 20:51 97.5 F L 101 H 24 H 122/67 93 05/20/23 20:29 93 Room Air 05/20/23 20:26 86 22 H 05/20/23 20:00 Room Air 05/20/23 16:00 105 H Intake/Output Intake/Output: Intake & Output 05/18/23 05/19/23 05/20/23 05/21/23 23:59 23:59 23:59 23:59 Intake Total 724 650 4699 530 Output Total 850 175 800 600 Balance -240 462 960 -70 Meds/Results Medications:
[2023-05-21 12:12] LABS: Glucose Point of Care 302 mg/dl (65-105)
[2023-05-21] MEDS: HEPARIN SODIUM 5,000 UNITS/ML VIAL 5000 UNITS SUB-Q ×2 (14:25→20:51)
--- NOTE | 2023-05-21 14:40 | PM.IMPN ---
Progress Note: A&P Assessment and Plan (1) COPD exacerbation: Code(s): J44.1 - Chronic obstructive pulmonary disease with (acute) exacerbation Status: Acute (2) Urinary retention: Code(s): R33.9 - Retention of urine, unspecified Status: Acute (3) Sepsis: Code(s): A41.9 - Sepsis, unspecified organism Status: Acute (4) HAP (hospital-acquired pneumonia): Code(s): J18.9 - Pneumonia, unspecified organism; Y95 - Nosocomial condition Status: Acute (5) CHF exacerbation: Qualifiers: Heart failure type: systolic Qualified Code(s): I50.23 - Acute on chronic systolic (congestive) heart failure Code(s): I50.9 - Heart failure, unspecified Status: Acute (6) Atrial fibrillation with RVR: Code(s): I48.91 - Unspecified atrial fibrillation Status: Acute (7) Dementia, senile with delusions: Code(s): F03.92 - Unspecified dementia, unspecified severity, with psychotic disturbance Status: Acute Plan The patient's hyponatremia has improved status post discontinuation of Lasix. However her wheezing appears to be a cardiac wheeze and her lower extremity edema is worsening. Will need to be on a diuretic which will be resumed today per Dr. Agarwal with the use of salt tablets. Continue to monitor to assess the response of this combination. Continue prednisone and DuoNebs q.6 hours for now as well. Urinary retention, failed voiding trial. Urology consulted. She is a recently placed permanent resident of [facility]. Plan to discharge back to [facility] wants electrolytes and edema are improved. DNR. Subcutaneous heparin. Subjective Date/time seen: 05/21/23 14:40 Interval history: No acute overnight events. Patient lying in bed with head of bed elevated 45?. She believes her breathing is mildly labored but otherwise has no complaints. She feels better after just receiving a nebulized breathing treatment. Reports lower extremity edema is worsening. Review of Systems Review of Systems: All systems reviewed & are unremarkable except as noted in HPI and below (Subjective) Exam Const: General: comfortable and no acute distress Eyes: Pupils: Equal, round and reactive pupils present Neck: Neck: supple Resp: Effort & Inspection: normal respiratory effort Auscultation: crackles (Wet) Cardio: Rate: regular rate Rhythm: abnormal rhythm GI: GI Palp: Yes Soft to palpation and No Tenderness to palpation present (GI) Extrem: General: edema (Bilateral lower extremities up to thighs) Objective Data Vital Signs Vital Signs: Vital Signs - 24 hr 05/20/23 14:42 05/20/23 14:52 05/20/23 16:00 Temperature Pulse Rate 72 82 105 H Respiratory Rate 20 20 Blood Pressure Pulse Oximetry Oxygen Delivery 05/20/23 20:00 05/20/23 20:26 05/20/23 20:29 Temperature Pulse Rate 86 Respiratory Rate 22 H Blood Pressure Pulse Oximetry 93 Oxygen Delivery Room Air Room Air 05/20/23 20:51 05/20/23 20:00 05/21/23 00:00 Temperature 97.5 F L Pulse Rate 101 H 97 98 Respiratory Rate 24 H Blood Pressure 122/67 Pulse Oximetry 93 Oxygen Delivery 05/21/23 02:40 05/21/23 02:46 05/21/23 04:00 Temperature Pulse Rate 82 84 98 Respiratory Rate 20 20 Blood Pressure Pulse Oximetry Oxygen Delivery 05/21/23 07:50 05/21/23 07:57 05/21/23 08:30 Temperature Pulse Rate 82 91 Respiratory Rate 18 Blood Pressure Pulse Oximetry 94 Oxygen Delivery Room Air 05/21/23 08:00 05/21/23 08:00 05/21/23 12:00 Temperature Pulse Rate 93 123 H Respiratory Rate Blood Pressure Pulse Oximetry 93 Oxygen Delivery Room Air 05/21/23 14:10 05/21/23 14:24 Temperature Pulse Rate 88 79 Respiratory Rate 18 20 Blood Pressure Pulse Oximetry Oxygen Delivery Intake/Output Intake/Output: Intake & Output 05/18/23 05/19/23 05/20/23 05/21/23 23:59 23:59
[2023-05-21] MEDS: SODIUM CHLORIDE 1 GM TABLET PO (16:15)
[2023-05-21] MEDS: FUROSEMIDE INJ 40 MG/4 ML VIAL 20 MG IV PUSH (16:15)
[2023-05-21 17:15] LABS: Glucose Point of Care 286 mg/dl (65-105)
[2023-05-21 20:27] LABS: Glucose Point of Care 245 mg/dl (65-105)
[2023-05-21] MEDS: traZODone HCL 50 MG TABLET PO (20:51)
[2023-05-22] VITALS (17 sets, daily range): BP systolic 103–133; BP diastolic 71–98; PULSE 81–111; RESP 16–20; TEMP 35.9–36.7; O2SAT 94–99; BMI 10.0
[2023-05-22] MEDS: IPRATROPIUM 0.5 MG/ALBUTEROL SULFATE 2.5 MG AMPUL.NEB 3 ML INHALATION ×4 (02:23→20:40)
[2023-05-22 05:52] LABS: Basophils Percent Auto 0.1 % (0.2-1.2); Hematocrit 43.5 % (37.0-47.0); Hemoglobin 13.4 g/dL (12.0-15.0); Immature Granulocyte Absolute 0.03 K/mm3 (0.00-0.031); Immature Granulocyte Percent A 0.4 % (0-0.5); Lymphocytes Absolute Auto 0.75 K/mm3 (0.9-3.2); Lymphocytes Percent Auto 9.8 % (18.3-44.2); Mean Corpuscular HGB Conc 30.8 g/dl (32-36); Mean Corpuscular Hemoglobin 26.5 pg (26-34); Mean Platelet Volume 10.6 fl (7.4-10.4); Monocytes Absolute Auto 0.5 K/mm3 (0.1-0.6); Monocytes Percent Auto 6.4 % (2.6-8.5); Neutrophils Absolute Auto 6.4 K/mm3 (1.3-6.7); Neutrophils Percent Auto 83.3 % (45.5-73.1); Platelet Count Result 189 k/mm3 (150-375); Red Blood Count 5.06 M/mm3 (4.2-5.4); Red Cell Distribution Width 24.6 % (11.5-14.5); White Blood Count 7.7 K/mm3 (4.5-10.0)
[2023-05-22 06:09] LABS: Anion Gap 9 mmol/L (4-12); Blood Urea Nitrogen 32 mg/dL (7-17); Calcium 9.6 mg/dL (8.4-10.2); Carbon Dioxide 22 mmol/L (22-30); Chloride 97 mmol/L (98-107); Estimated CRCL calculation 49 ml/min; Estimated Glomerular Filt Rate 60; Glucose 210 mg/dL (65-110); Potassium 4.3 mmol/L (3.4-5.0); Sodium 128 mmol/L (137-145)
[2023-05-22 06:23] LABS: Platelet Estimate Adequate (Adequate)
[2023-05-22 06:24] LABS: Anisocytosis 2+; Poikilocytosis 2+
[2023-05-22 06:26] LABS: Burr Cells 1+; Schistocytes Rare
[2023-05-22] MEDS: HEPARIN SODIUM 5,000 UNITS/ML VIAL 5000 UNITS SUB-Q ×2 (06:37→14:24)
[2023-05-22] MEDS: LEVOTHYROXINE SODIUM 25 MCG TABLET PO (06:38)
[2023-05-22 07:22] LABS: Glucose Point of Care 214 mg/dl (65-105)
[2023-05-22] MEDS: METOPROLOL SUCCINATE EXT REL 25 MG TABCR 75 MG PO (08:38)
[2023-05-22] MEDS: PRAVASTATIN SODIUM 20 MG TABLET PO (08:39)
[2023-05-22] MEDS: SODIUM CHLORIDE 1 GM TABLET PO ×2 (08:39→17:23)
[2023-05-22] MEDS: FUROSEMIDE INJ 40 MG/4 ML VIAL 20 MG IV PUSH (08:39)
[2023-05-22] MEDS: predniSONE 20 MG TABLET 40 MG PO (08:39)
[2023-05-22] MEDS: INSULIN ASPART (*BKC) 100 UNITS/ML SUB-Q ×3 (09:15→17:23)
[2023-05-22] MEDS: guaiFENesin/DEXTROMETHORPHAN 10 ML UDC 5 ML PO (09:49)
[2023-05-22 10:40] LABS: Creatinine, Random Urine 89 mg/dL (20-275); Total Protein/Creatinine Ratio 449 mg/g creat (24-184)
--- NOTE | 2023-05-22 11:16 | WPDURCON ---
Assessment and Plan Assessment and plan (1) Urinary retention: Code(s): R33.9 - Retention of urine, unspecified Status: Acute Assessment and Plan: patient is admitted for management of AFib and heart failure during the course for 6 day hospital stay has had a Wright catheter in place, this has been removed several times and she has been unable to void. Best As can be gleaned from her this is a new issue for her. we discussed the urinary retention could be related to chronic debility, acute illness requiring hospitalization, decreased mobility. Discussed often if seen in the hospital as a person recovers and returns to more consistent baseline activity level often urinary retention will resolve. Given his failed 3 prior de catheterization trial on hospital leave Wright for now until she gets closer to discharge. At that time could attempt to remove the Wright catheter in the morning the day before discharge to see if she voids. She is able to void to low PVR may not need ongoing care. If she continues to retain urine however will need to either go home with a Wright catheter or clean intermittent catheterization, we mention this briefly to her today and she did not seem to want to consider intermittent catheterization and given her overall functional status I do think that would be a challenge. - Attempt decatheterization trial 1 more time the day before discharge - if unable to void replace Wright and can discharge with Wright to leg bag - if to go with Wright would set up follow-up in our clinic at [facility] in [place] for outpatient attempt at Wright removal or further workup of urinary retention Urology Consult Note HPI Date Seen: 05/22/23 Requesting Physician: Keshawn Gallardo MD Primary Care Provider: Linda Tejada DO Consult Narrative Narrative: Charito Rey is a 77 year old female Currently admitted for management of heart failure, atrial fibrillation hyponatremia who has been in the hospital for approximately 6 days and has had issues with urinary retention for which Urology is consulted. The patient is lying in bed and conversant, seems to be a somewhat poor historian. However, she reports no known previous issues with urinary function. No prior urinary retention, no recurrent urinary tract infections, does not think she has previously seen a urologist. Denies history of kidney stones, incontinence, or other urinary problems. Per report Wright catheter was placed for diuresis upon admission. This has been removed 2-3 times during her hospital stay and per nursing staff each time she has been unable to void on her own and a Wright has needed to be replaced. Most recent trial of void was yesterday 05/21/2023. Patient has a Wright catheter in place draining clear yellow urine. 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 Patient declined surgery. She has been treated with letrozole. She was seen as a new patient by oncologist Dr. Justin Crisostomo on 03/09/2023 who rec she resume the letrozole, which had been stopped 09/2022 for unknown reasons. Chronic anticoagulation Cognitive dysfunction Hyperlipidemia Hypertension Paroxysmal atrial fibrillation Type 2 diabetes mellitus Valvular heart disease Surgical History Surgical History History of aortic valve replacement with bioprosthetic valve History of left atrial appendage closure History of mitral valve replacement with bioprosthetic valve Family History Family History Mother Heart disease Father Cancer Sibling Cancer Social History Social Histor
--- NOTE | 2023-05-22 11:35 | PM.IMPN ---
Progress Note: A&P Assessment and Plan (1) COPD exacerbation: Code(s): J44.1 - Chronic obstructive pulmonary disease with (acute) exacerbation Status: Acute (2) Urinary retention: Code(s): R33.9 - Retention of urine, unspecified Status: Acute (3) Sepsis: Code(s): A41.9 - Sepsis, unspecified organism Status: Acute (4) HAP (hospital-acquired pneumonia): Code(s): J18.9 - Pneumonia, unspecified organism; Y95 - Nosocomial condition Status: Acute (5) CHF exacerbation: Qualifiers: Heart failure type: systolic Qualified Code(s): I50.23 - Acute on chronic systolic (congestive) heart failure Code(s): I50.9 - Heart failure, unspecified Status: Acute (6) Atrial fibrillation with RVR: Code(s): I48.91 - Unspecified atrial fibrillation Status: Acute (7) Dementia, senile with delusions: Code(s): F03.92 - Unspecified dementia, unspecified severity, with psychotic disturbance Status: Acute Plan The patient's hyponatremia has improved status post discontinuation of Lasix. However her wheezing appears to be a cardiac wheeze and her lower extremity edema is worsening. Will need to be on a diuretic which will be resumed today per Dr. Agarwal with the use of salt tablets. Continue to monitor to assess the response of this combination. Continue prednisone and DuoNebs q.6 hours for now as well. Urinary retention, failed voiding trial. Urology consulted. May 21 update. The patient has continuous cardiac wheeze and likely a dry cough as a result as well. He is currently on room air but has significant lower extremity edema and diffuse wet crackles on pulmonary exam. Discussion held with Nephrology on we may have to forego a perfect sodium level as she could not be left to be in severe fluid overload. Therefore we will continue to monitor hyponatremia while starting Lasix with salt tabs. Lasix 20 mg IV b.i.d. to start tonight and we will give 1 time dose 60 mg IV right now. Can also continue prednisone and DuoNebs for possible COPD exacerbation until her symptomatology otherwise resolved. Continue daily weights with strict intake and output with fluid restriction and heart healthy diet. Sepsis appears to be improved otherwise. Appreciate Urology recommendations for persistent urinary retention FEN: Saline lock IV. Heart healthy diet. Fluid restriction daily. GI prophylaxis: Not indicated DVT prophylaxis: Subcutaneous heparin Lines: Peripheral IV, Wright catheter Code Status: DNR Dispo: Stable. She is a recently placed permanent resident of [facility]. Subjective Date/time seen: 05/22/23 11:35 Interval history: No acute overnight events. Patient denies shortness of breath or chest pain but is aware she has lower extremity edema and a persistent dry cough. Review of Systems Review of Systems: All systems reviewed & are unremarkable except as noted in HPI and below (Subjective) Exam Const: General: comfortable and no acute distress Other: A&O x3 Eyes: Pupils: Equal, round and reactive pupils present Resp: Effort & Inspection: normal respiratory effort Auscultation: crackles (Diffuse) Cardio: Rate: regular rate Rhythm: regular rhythm GI: GI Palp: Yes Soft to palpation and No Tenderness to palpation present (GI) Extrem: General: no edema Objective Data Vital Signs Vital Signs: Vital Signs - 24 hr 05/21/23 12:00 05/21/23 14:10 05/21/23 14:24 Temperature Pulse Rate 123 H 88 79 Respiratory Rate 18 20 Blood Pressure Pulse Oximetry Oxygen Delivery 05/21/23 14:00 05/21/23 16:16 05/21/23 16:00 Temperature 98.6 F Pulse Rate 52 L 123 H 104 H Respiratory Rate 16 Blood Pressure 109/76 114/91 H Pulse Oximetry 93 Oxygen Delivery 05/21/23 19:34 05/21/23 19:37 05/21/23 19:40 Temperature Pulse Rate 120 H 95 Respiratory Rate 16 16 Blood Pressure Pulse Oxime
[2023-05-22 11:40] LABS: Glucose Point of Care 254 mg/dl (65-105)
[2023-05-22] MEDS: FUROSEMIDE INJ 40 MG/4 ML VIAL 60 MG IV PUSH (11:56)
--- NOTE | 2023-05-22 12:21 | PM.PNNEP ---
Progress Note: A&P Assessment and Plan (1) Hyponatremia: Code(s): E87.1 - Hypo-osmolality and hyponatremia Status: Acute Assessment and Plan: improving/stable was running ~ 130 - 134mmol/L in April 2023 acute drop to 126mmmol/L during this admission in the context of diuretic therapy subsequently, diuresis on hold risk factors of low sodium: CHF/valvular heart disease breast cancer thyroid disease chronic need for diuretic therapy urinary retention pneumonia COPD (?) evaluation to date: TSH and cortisol okay urine electrolytes are prerenal SPEP/UPEP and serum/urine osmo pending head CT and CXR noted given worsening CHF symptoms, started on salt tabs with diuretic therapy (on 05/20) follow trend of repeat sodium levels (2) CHF exacerbation: Qualifiers: Heart failure type: systolic Qualified Code(s): I50.23 - Acute on chronic systolic (congestive) heart failure Code(s): I50.9 - Heart failure, unspecified Status: Acute Assessment and Plan: diuretics were on hold due to #1 however, will restart today (05/20) follow respiratory status follow I/Os and daily weights (3) Pneumonia: Code(s): J18.9 - Pneumonia, unspecified organism Status: Acute Assessment and Plan: suggestive by admission imaging on antibiotics follow culture data (4) Urinary retention: Code(s): R33.9 - Retention of urine, unspecified Status: Acute Assessment and Plan: chadwick catheter in place voiding trial failed Urololgy recommendation noted Will continue to follow. Subjective Date/time seen: 05/22/23 12:21 Interval history: Follow-up for acute on chronic hyponatremia. Sodium relatively stable since initation of salt tablets and IV diuretic therapy; denies any shortness of breath but noted worsening lower extremity edema in association with a cough; no other issues/events overnight or earlier this morning. Exam Narrative: General: elderly female in NAD Heart: normal S1 and S2; no rub Lungs: coarse crackles noted Abdomen: soft, nontender, nondistended, positive bowel sounds Extremities: no cyanosis or clubbing; 1 - 2+ edema Skin: warm and intact Objective Data Vital Signs Vital Signs: Vital Signs Temp Pulse Resp BP Pulse Ox O2 Del Method 05/22/23 12:00 97.2 F L 111 H 19 103/71 94 05/22/23 08:00 86 16 94 Room Air 05/22/23 07:43 86 16 05/22/23 07:32 81 16 05/22/23 07:32 94 Room Air 05/22/23 05:43 96.6 F L 100 18 133/78 95 05/22/23 04:00 92 05/22/23 02:29 97 16 05/22/23 02:23 93 16 05/22/23 00:00 102 H 05/21/23 20:00 114 H 05/21/23 20:28 97.2 F L 97 22 H 107/77 92 05/21/23 19:40 95 16 05/21/23 19:37 95 Room Air 05/21/23 19:34 120 H 16 Intake/Output Intake/Output: Intake & Output 05/19/23 05/20/23 05/21/23 05/22/23 23:59 23:59 23:59 23:59 Intake Total 637 1760 1160 1310 Output Total 175 647 722 1986 Balance 462 960 310 -190 Meds/Results Medications: Active Medications Generic Name Dose Route Start Last Admin Trade Name Freq PRN Reason Stop Dose Admin Acetaminophen 1,000 mg 05/16/23 01:55 05/21/23 11:35 Acetaminophen 500 Mg Tablet PO 1,000 mg Q6H PRN Administration Pain (Scale Score 1-3) Albuterol/Ipratropium 3 ml 05/20/23 14:00 05/22/23 13:20 Ipratropium 0.5 Mg/Albuterol Sulfate 2.5 Mg Ampul.Neb 3 Ml INHALATION 3 ml Q6HRT ROSA ISELA Administration Dextrose 12.5 gm 05/20/23 10:04 Dextrose 50% 25 Gm/50 Ml Syringe IV PUSH PRN PRN Hypoglycemia Protocol Fluticasone Propionate 1 spray 05/16/23 01:55 Fluticasone Propionate 0.05% Na Spr 16 Gm Btl (*Bkc) NASAL Q12HR PRN Congestion Furosemide 40 mg 05/17/23 09:00 05/19/23 09:00 Furosemide 40 Mg Tablet PO 40 mg DAILY ROSA ISELA Administration Furosemide
--- NOTE | 2023-05-22 12:21 | P.PNNP_ITS ---
Progress Note: A&P Assessment and Plan (1) Hyponatremia: Code(s): E87.1 - Hypo-osmolality and hyponatremia Status: Acute Assessment and Plan: * improving/stable * was running ~ 130 - 134mmol/L in April 2023 * acute drop to 126mmmol/L during this admission in the context of diuretic therapy * subsequently, diuresis on hold * risk factors of low sodium: * CHF/valvular heart disease * breast cancer * thyroid disease * chronic need for diuretic therapy * urinary retention * pneumonia * COPD (?) * evaluation to date: * TSH and cortisol okay * urine electrolytes are prerenal * SPEP/UPEP and serum/urine osmo pending * head CT and CXR noted * given worsening CHF symptoms, started on salt tabs with diuretic therapy (on 05/20) * follow trend of repeat sodium levels (2) CHF exacerbation: Qualifiers: Heart failure type: systolic Qualified Code(s): I50.23 - Acute on chronic systolic (congestive) heart failure Code(s): I50.9 - Heart failure, unspecified Status: Acute Assessment and Plan: * diuretics were on hold due to #1 * however, will restart today (05/20) * follow respiratory status * follow I/Os and daily weights (3) Pneumonia: Code(s): J18.9 - Pneumonia, unspecified organism Status: Acute Assessment and Plan: * suggestive by admission imaging * on antibiotics * follow culture data (4) Urinary retention: Code(s): R33.9 - Retention of urine, unspecified Status: Acute Assessment and Plan: * chadwick catheter in place * voiding trial failed * Urololgy recommendation noted Will continue to follow. Subjective Date/time seen: 05/22/23 12:21 Interval history: Follow-up for acute on chronic hyponatremia. Sodium relatively stable since initation of salt tablets and IV diuretic therapy; denies any shortness of breath but noted worsening lower extremity edema in association with a cough; no other issues/events overnight or earlier this morning. Exam Narrative: General: elderly female in NAD Heart: normal S1 and S2; no rub Lungs: coarse crackles noted Abdomen: soft, nontender, nondistended, positive bowel sounds Extremities: no cyanosis or clubbing; 1 - 2+ edema Skin: warm and intact Objective Data Vital Signs Vital Signs: Vital Signs Temp Pulse Resp BP Pulse Ox O2 Del Method 05/22/23 12:00 97.2 F L 111 H 19 103/71 94 05/22/23 08:00 86 16 94 Room Air 05/22/23 07:43 86 16 05/22/23 07:32 81 16 05/22/23 07:32 94 Room Air 05/22/23 05:43 96.6 F L 100 18 133/78 95 05/22/23 04:00 92 05/22/23 02:29 97 16 05/22/23 02:23 93 16 05/22/23 00:00 102 H 05/21/23 20:00 114 H 05/21/23 20:28 97.2 F L 97 22 H 107/77 92 05/21/23 19:40 95 16 05/21/23 19:37 95 Room Air 05/21/23 19:34 120 H 16 Intake/Output Intake/Output: Intake & Output 05/19/23 05/20/23 05/21/23 05/22/23 23:59 23:59 23:59 23:59 Intake Total 637 1760 1160 1310 Output Total 175 277 122 4079 Balance 462 960 310 190 Meds/Results Medications:
[2023-05-22] MEDS: FUROSEMIDE INJ 40 MG/4 ML VIAL IV PUSH (17:23)
[2023-05-22 18:05] LABS: Glucose Point of Care 322 mg/dl (65-105)
[2023-05-22] MEDS: traZODone HCL 50 MG TABLET PO (20:39)
[2023-05-22 21:33] LABS: Glucose Point of Care 270 mg/dl (65-105)
[2023-05-23] VITALS (14 sets, daily range): BP systolic 98–143; BP diastolic 59–78; PULSE 68–108; RESP 16–22; TEMP 36.1–36.6; O2SAT 90–93
[2023-05-23] MEDS: LEVOTHYROXINE SODIUM 25 MCG TABLET PO (05:33)
[2023-05-23 06:00] LABS: Hematocrit 39.7 % (37.0-47.0); Hemoglobin 12.5 g/dL (12.0-15.0); Immature Granulocyte Absolute 0.04 K/mm3 (0.00-0.031); Immature Granulocyte Percent A 0.5 % (0-0.5); Lymphocytes Percent Auto 8.8 % (18.3-44.2); Mean Corpuscular HGB Conc 31.5 g/dl (32-36); Mean Corpuscular Hemoglobin 27.1 pg (26-34); Mean Corpuscular Volume 85.9 fl (80-100); Mean Platelet Volume 10.5 fl (7.4-10.4); Monocytes Absolute Auto 0.6 K/mm3 (0.1-0.6); Monocytes Percent Auto 7.1 % (2.6-8.5); Neutrophils Absolute Auto 6.7 K/mm3 (1.3-6.7); Neutrophils Percent Auto 83.6 % (45.5-73.1); Platelet Count Result 165 k/mm3 (150-375); Red Blood Count 4.62 M/mm3 (4.2-5.4); Red Cell Distribution Width 24.2 % (11.5-14.5)
[2023-05-23 06:16] LABS: Anion Gap 5 mmol/L (4-12); Blood Urea Nitrogen 32 mg/dL (7-17); Calcium 8.9 mg/dL (8.4-10.2); Carbon Dioxide 27 mmol/L (22-30); Chloride 98 mmol/L (98-107); Estimated CRCL calculation 54 ml/min; Estimated Glomerular Filt Rate > 60; Glucose 213 mg/dL (65-110); Potassium 3.8 mmol/L (3.4-5.0); Sodium 130 mmol/L (137-145)
[2023-05-23 07:04] LABS: Protein, Total 5.7 g/dL (6.1-8.1)
[2023-05-23 07:06] LABS: Anisocytosis 1+; Platelet Estimate Adequate (Adequate); Poikilocytosis 1+
[2023-05-23 07:07] LABS: Ovalocytes 1+; Schistocytes Rare
[2023-05-23 07:08] LABS: Burr Cells 1+
--- NOTE | 2023-05-23 07:47 | WPDUROPN2 ---
Progress Note: A&P Assessment and Plan (1) Urinary retention: Code(s): R33.9 - Retention of urine, unspecified Status: Acute Assessment and Plan: Multifactorial. Would keep Wright catheter for now. When she is stronger and more ambulatory can attempt a voiding trial. Will sign off for now call with questions Subjective Subjective Date/Time Seen: 05/23/23 07:47 Interval history: Patient with poor ambulation. A level oft debilitation is present Exam Narrative: Wright with clear yellow urine. Lying comfortably in bed. Awake and alert Objective Data Vital Signs Vital Signs: Vital Signs - 24 hr 05/22/23 08:00 05/22/23 12:00 05/22/23 13:10 Temperature 97.2 F L Pulse Rate 86 111 H Respiratory Rate 16 19 Blood Pressure 103/71 123/74 Pulse Oximetry 94 94 Oxygen Delivery Room Air 05/22/23 13:20 05/22/23 13:33 05/22/23 13:46 Temperature 98.0 F Pulse Rate 87 96 84 Respiratory Rate 18 20 18 Blood Pressure 124/98 H Pulse Oximetry 99 Oxygen Delivery 05/22/23 08:00 05/22/23 12:00 05/22/23 16:00 Temperature Pulse Rate 105 H 99 100 Respiratory Rate Blood Pressure Pulse Oximetry Oxygen Delivery 05/22/23 20:40 05/22/23 20:50 05/22/23 22:00 Temperature 97.9 F Pulse Rate 88 90 87 Respiratory Rate 20 20 16 Blood Pressure 129/78 Pulse Oximetry 94 Oxygen Delivery 05/23/23 06:00 Temperature 97.6 F Pulse Rate 68 Respiratory Rate 16 Blood Pressure 143/59 H Pulse Oximetry 91 Oxygen Delivery Intake/Output Intake/Output: Intake & Output 05/20/23 05/21/23 05/22/23 05/23/23 23:59 23:59 23:59 23:59 Intake Total 1760 1160 1510 Output Total 395 259 7004 1300 Balance 960 310 10 -1300 Meds/Results Medications: Active Medications Generic Name Dose Route Start Last Admin Trade Name Freq PRN Reason Stop Dose Admin Acetaminophen 1,000 mg 05/16/23 01:55 05/21/23 11:35 Acetaminophen 500 Mg Tablet PO 1,000 mg Q6H PRN Administration Pain (Scale Score 1-3) Albuterol/Ipratropium 3 ml 05/20/23 14:00 05/23/23 02:35 Ipratropium 0.5 Mg/Albuterol Sulfate 2.5 Mg Ampul.Neb 3 Ml INHALATION Not Given Q6HRT ROSA ISELA Dextrose 12.5 gm 05/20/23 10:04 Dextrose 50% 25 Gm/50 Ml Syringe IV PUSH PRN PRN Hypoglycemia Protocol Fluticasone Propionate 1 spray 05/16/23 01:55 Fluticasone Propionate 0.05% Na Spr 16 Gm Btl (*Bkc) NASAL Q12HR PRN Congestion Furosemide 40 mg 05/17/23 09:00 05/19/23 09:00 Furosemide 40 Mg Tablet PO 40 mg DAILY ROSA ISELA Administration Furosemide 40 mg 05/22/23 17:00 05/22/23 17:23 Furosemide Inj 40 Mg/4 Ml Vial IV PUSH 40 mg BID ROSA ISELA Administration Glucagon 1 mg 05/20/23 10:04 Glucagon For Inj 1 Mg Vial IM PRN PRN Hypoglycemia Protocol Glucose 15 gm 05/20/23 10:04 Glucose Oral Gel 15 Gm Of Glucse In 37.5 Gm Tube PO PRN PRN Hypoglycemia Protocol Guaifenesin/Dextromethorphan 5 ml 05/16/23 01:13 05/22/23 09:49 Guaifenesin/Dextromethorphan 10 Ml Udc PO 5 ml Q4H PRN Administration Cough Heparin Sodium (Porcine) 5,000 units 05/16/23 22:00 05/23/23 05:12 Heparin Sodium 5,000 Units/Ml Vial SUB-Q Not Given Q8HR ROSA ISELA Dextrose 1,000 mls @ 100 mls/hr 05/20/23 10:04 Dextrose 5% 1,000 Ml IVPB PRN PRN Hypoglycemia Protocol Insulin Aspart 2 - 5 units 05/20/23 12:00 05/22/23 17:23 Insulin Aspart (*Bkc) 100 Units/Ml SUB-Q 4 units TIDWM ROSA ISELA Administration Protocol Levothyroxine Sodium 25 mcg 05/16/23 06:30 05/23/23 05:33 Levothyroxine Sodium 25 Mcg Tablet PO 25 mcg DAILY@0630 ROSA ISELA Administration Loratadine 10 mg 05/16/23 01:55 05/17/23 08:56 Loratadine 10 Mg Tablet PO 10 mg DAILY PRN Administration Allergy Symptoms Metoprolol Succinate 75 mg 05/16/23 09:00 05/22/23 08:38 Metoprolol Succinate Ext Rel 25 Mg Tabcr PO 75 mg Q
[2023-05-23 07:50] LABS: Glucose Point of Care 225 mg/dl (65-105)
[2023-05-23] MEDS: IPRATROPIUM 0.5 MG/ALBUTEROL SULFATE 2.5 MG AMPUL.NEB 3 ML INHALATION ×3 (07:59→20:52)
[2023-05-23] MEDS: predniSONE 20 MG TABLET 40 MG PO (08:30)
[2023-05-23] MEDS: SODIUM CHLORIDE 1 GM TABLET PO ×2 (08:31→17:08)
[2023-05-23] MEDS: METOPROLOL SUCCINATE EXT REL 25 MG TABCR 75 MG PO (08:33)
[2023-05-23] MEDS: PRAVASTATIN SODIUM 20 MG TABLET PO (08:34)
[2023-05-23] MEDS: INSULIN ASPART (*BKC) 100 UNITS/ML SUB-Q ×2 (08:39→17:31)
[2023-05-23] MEDS: FUROSEMIDE INJ 40 MG/4 ML VIAL IV PUSH ×2 (10:01→17:30)
--- NOTE | 2023-05-23 10:18 | PM.PNNEP ---
Progress Note: A&P Assessment and Plan (1) Hyponatremia: Code(s): E87.1 - Hypo-osmolality and hyponatremia Status: Acute Assessment and Plan: improving was running ~ 130 - 134mmol/L in April 2023 acute drop to 126mmmol/L during this admission in the context of diuretic therapy subsequently, diuresis on hold risk factors of low sodium: CHF/valvular heart disease breast cancer thyroid disease chronic need for diuretic therapy urinary retention pneumonia COPD (?) evaluation to date: TSH and cortisol okay urine electrolytes are prerenal SPEP/UPEP and serum/urine osmo pending head CT and CXR noted given worsening CHF symptoms, started on salt tabs with diuretic therapy (on 05/20) follow trend of repeat sodium levels (2) CHF exacerbation: Qualifiers: Heart failure type: systolic Qualified Code(s): I50.23 - Acute on chronic systolic (congestive) heart failure Code(s): I50.9 - Heart failure, unspecified Status: Acute Assessment and Plan: diuretics were on hold due to #1 however, restarted on 05/20 follow respiratory status follow I/Os and daily weights (3) Pneumonia: Code(s): J18.9 - Pneumonia, unspecified organism Status: Acute Assessment and Plan: suggestive by admission imaging on antibiotics follow culture data (4) Urinary retention: Code(s): R33.9 - Retention of urine, unspecified Status: Acute Assessment and Plan: chadwick catheter in place voiding trial failed Urololgy recommendation noted Will continue to follow. Subjective Date/time seen: 05/23/23 10:18 Interval history: Follow-up for acute on chronic hyponatremia. Overall, seems to be slowly improving with current therapy/interventions; sodium stable if not improving as is lower extremity edema; breathing/respiratory status seems better as well; no apparent distress noted at the time of my visit. Exam Narrative: General: elderly female in NAD Heart: normal S1 and S2; no rub Lungs: coarse crackles noted Abdomen: soft, nontender, nondistended, positive bowel sounds Extremities: no cyanosis or clubbing; 1 - 2+ edema Skin: warm and intact Objective Data Vital Signs Vital Signs: Vital Signs Temp Pulse Resp BP Pulse Ox O2 Del Method 05/23/23 08:00 Room Air 05/23/23 08:00 93 04/15/24 08:33 81 05/23/23 07:59 90 Room Air 05/23/23 08:12 90 20 05/23/23 07:59 95 20 05/23/23 06:00 97.6 F 68 16 143/59 H 91 05/22/23 22:00 97.9 F 87 16 129/78 94 05/22/23 20:50 90 20 05/22/23 20:40 88 20 05/22/23 16:00 100 05/22/23 13:46 98.0 F 84 18 124/98 H 99 05/22/23 13:33 96 20 05/22/23 13:20 87 18 05/22/23 13:10 123/74 Intake/Output Intake/Output: Intake & Output 05/20/23 05/21/23 05/22/23 05/23/23 23:59 23:59 23:59 23:59 Intake Total 1760 1160 1510 240 Output Total 060 002 7315 1300 Balance 960 310 10 -1060 Meds/Results Medications: Active Medications Generic Name Dose Route Start Last Admin Trade Name Freq PRN Reason Stop Dose Admin Acetaminophen 1,000 mg 05/16/23 01:55 05/21/23 11:35 Acetaminophen 500 Mg Tablet PO 1,000 mg Q6H PRN Administration Pain (Scale Score 1-3) Albuterol/Ipratropium 3 ml 05/20/23 14:00 05/23/23 07:59 Ipratropium 0.5 Mg/Albuterol Sulfate 2.5 Mg Ampul.Neb 3 Ml INHALATION 3 ml Q6HRT ROSA ISELA Administration Dextrose 12.5 gm 05/20/23 10:04 Dextrose 50% 25 Gm/50 Ml Syringe IV PUSH PRN PRN Hypoglycemia Protocol Fluticasone Propionate 1 spray 05/16/23 01:55 Fluticasone Propionate 0.05% Na Spr 16 Gm Btl (*Bkc) NASAL Q12HR PRN Congestion Furosemide 40 mg 05/17/23 09:00 05/19/23 09:00 Furosemide 40 Mg Tablet PO 40 mg DAILY ROSA ISELA Administration Furosemide 40 mg 05/22/23 17:00 05/23/23 10:01 Furose
--- NOTE | 2023-05-23 10:18 | P.PNNP_ITS ---
Progress Note: A&P Assessment and Plan (1) Hyponatremia: Code(s): E87.1 - Hypo-osmolality and hyponatremia Status: Acute Assessment and Plan: * improving * was running ~ 130 - 134mmol/L in April 2023 * acute drop to 126mmmol/L during this admission in the context of diuretic therapy * subsequently, diuresis on hold * risk factors of low sodium: * CHF/valvular heart disease * breast cancer * thyroid disease * chronic need for diuretic therapy * urinary retention * pneumonia * COPD (?) * evaluation to date: * TSH and cortisol okay * urine electrolytes are prerenal * SPEP/UPEP and serum/urine osmo pending * head CT and CXR noted * given worsening CHF symptoms, started on salt tabs with diuretic therapy (on 05/20) * follow trend of repeat sodium levels (2) CHF exacerbation: Qualifiers: Heart failure type: systolic Qualified Code(s): I50.23 - Acute on chronic systolic (congestive) heart failure Code(s): I50.9 - Heart failure, unspecified Status: Acute Assessment and Plan: * diuretics were on hold due to #1 * however, restarted on 05/20 * follow respiratory status * follow I/Os and daily weights (3) Pneumonia: Code(s): J18.9 - Pneumonia, unspecified organism Status: Acute Assessment and Plan: * suggestive by admission imaging * on antibiotics * follow culture data (4) Urinary retention: Code(s): R33.9 - Retention of urine, unspecified Status: Acute Assessment and Plan: * chadwick catheter in place * voiding trial failed * Urololgy recommendation noted Will continue to follow. Subjective Date/time seen: 05/23/23 10:18 Interval history: Follow-up for acute on chronic hyponatremia. Overall, seems to be slowly improving with current therapy/interventions; sodium stable if not improving as is lower extremity edema; breathing/respiratory status seems better as well; no apparent distress noted at the time of my visit. Exam Narrative: General: elderly female in NAD Heart: normal S1 and S2; no rub Lungs: coarse crackles noted Abdomen: soft, nontender, nondistended, positive bowel sounds Extremities: no cyanosis or clubbing; 1 - 2+ edema Skin: warm and intact Objective Data Vital Signs Vital Signs: Vital Signs Temp Pulse Resp BP Pulse Ox O2 Del Method 05/23/23 08:00 Room Air 05/23/23 08:00 93 05/23/23 08:33 81 05/23/23 07:59 90 Room Air 05/23/23 08:12 90 20 05/23/23 07:59 95 20 05/23/23 06:00 97.6 F 68 16 143/59 H 91 05/22/23 22:00 97.9 F 87 16 129/78 94 05/22/23 20:50 90 20 05/22/23 20:40 88 20 05/22/23 16:00 100 05/22/23 13:46 98.0 F 84 18 124/98 H 99 05/22/23 13:33 96 20 05/22/23 13:20 87 18 05/22/23 13:10 123/74 Intake/Output Intake/Output: Intake & Output 05/20/23 05/21/23 05/22/23 05/23/23 23:59 23:59 23:59 23:59 Intake Total 1760 1160 1510 240 Output Total 177 861 5674 1300 Balance 960 310 10 -1060 Meds/Results Medications: Active Medications
--- NOTE | 2023-05-23 10:30 | PCNWS ---
Weekly nutritional screen. Patient is tolerating current heart healthy diet with adequate intake 50-100% of meals. No weight loss reported. No nutritional needs at this time.
[2023-05-23 11:42] LABS: Glucose Point of Care 197 mg/dl (65-105)
[2023-05-23 12:28] LABS: Kappa\\Lambda Light Chains 0.85 (0.26-1.65); Lambda Light Chain 53.9 mg/L (5.7-26.3)
[2023-05-23] MEDS: HEPARIN SODIUM 5,000 UNITS/ML VIAL 5000 UNITS SUB-Q ×2 (14:50→21:14)
--- NOTE | 2023-05-23 14:51 | PM.IMPN ---
Progress Note: A&P Assessment and Plan (1) COPD exacerbation: Code(s): J44.1 - Chronic obstructive pulmonary disease with (acute) exacerbation Status: Acute (2) Urinary retention: Code(s): R33.9 - Retention of urine, unspecified Status: Acute (3) Sepsis: Code(s): A41.9 - Sepsis, unspecified organism Status: Acute (4) HAP (hospital-acquired pneumonia): Code(s): J18.9 - Pneumonia, unspecified organism; Y95 - Nosocomial condition Status: Acute (5) CHF exacerbation: Qualifiers: Heart failure type: systolic Qualified Code(s): I50.23 - Acute on chronic systolic (congestive) heart failure Code(s): I50.9 - Heart failure, unspecified Status: Acute (6) Atrial fibrillation with RVR: Code(s): I48.91 - Unspecified atrial fibrillation Status: Acute (7) Dementia, senile with delusions: Code(s): F03.92 - Unspecified dementia, unspecified severity, with psychotic disturbance Status: Acute Plan The patient's hyponatremia has improved status post discontinuation of Lasix. However her wheezing appears to be a cardiac wheeze and her lower extremity edema is worsening. Will need to be on a diuretic which will be resumed today per Dr. Agarwal with the use of salt tablets. Continue to monitor to assess the response of this combination. Continue prednisone and DuoNebs q.6 hours for now as well. Urinary retention, failed voiding trial. Urology consulted. May 21 update. The patient has continuous cardiac wheeze and likely a dry cough as a result as well. He is currently on room air but has significant lower extremity edema and diffuse wet crackles on pulmonary exam. Discussion held with Nephrology on we may have to forego a perfect sodium level as she could not be left to be in severe fluid overload. Therefore we will continue to monitor hyponatremia while starting Lasix with salt tabs. Lasix 20 mg IV b.i.d. to start tonight and we will give 1 time dose 60 mg IV right now. Can also continue prednisone and DuoNebs for possible COPD exacerbation until her symptomatology otherwise resolved. Continue daily weights with strict intake and output with fluid restriction and heart healthy diet. Sepsis appears to be improved otherwise. Appreciate Urology recommendations for persistent urinary retention May 22 update: The patient has persistent cough and yesterday a chest x-ray was ordered which demonstrates interstitial opacities. Start Tessalon Perles and also continue to diurese as that may be causing her to have this wheeze and cough. Continue DuoNebs and prednisone. She has soft blood pressures will be prudent to keep her and watch her blood pressure while continue to diurese. Attempt voiding trial prior to discharge FEN: Saline lock IV. Heart healthy diet. Fluid restriction daily. GI prophylaxis: Not indicated DVT prophylaxis: Subcutaneous heparin Lines: Peripheral IV, Wright catheter Code Status: DNR Dispo: Stable. She is a recently placed permanent resident of [facility]. She should return there with therapy when stable. Subjective Date/time seen: 05/23/23 14:51 Interval history: No acute overnight events. Patient has persistent dry cough. Chest x-ray did not reveal anything new. She otherwise has no complaints. Review of Systems Review of Systems: All systems reviewed & are unremarkable except as noted in HPI and below (Subjective) Exam Const: General: comfortable and no acute distress Other: A&O x3. She has her usual delusional personality Eyes: Pupils: Equal, round and reactive pupils present Neck: Neck: supple Resp: Effort & Inspection: normal respiratory effort Auscultation: crackles Cardio: Rate: regular rate Rhythm: regular rhythm Heart sounds: no gallops, no murmurs and no rubs GI: GI Palp: Yes Soft to palpation and No Tenderness to palpation present (GI) Extrem: General: edema O
[2023-05-23 16:13] LABS: Osmolality, Urine 553 mOsm/kg (50-1200)
[2023-05-23 16:44] LABS: Glucose Point of Care 272 mg/dl (65-105)
[2023-05-23] MEDS: BENZONATATE 100 MG CAPSULE PO (17:08)
[2023-05-23 20:53] LABS: Glucose Point of Care 287 mg/dl (65-105)
[2023-05-23] MEDS: SENNA/DOCUSATE SODIUM TABLET 1 TAB PO (21:14)
[2023-05-23] MEDS: traZODone HCL 50 MG TABLET PO (21:14)
[2023-05-24] VITALS (10 sets, daily range): BP systolic 119–123; BP diastolic 84–97; PULSE 82–121; RESP 20; TEMP 36–36.2; O2SAT 90–93
[2023-05-24] MEDS: IPRATROPIUM 0.5 MG/ALBUTEROL SULFATE 2.5 MG AMPUL.NEB 3 ML INHALATION ×3 (02:27→13:14)
[2023-05-24] MEDS: guaiFENesin/DEXTROMETHORPHAN 10 ML UDC 5 ML PO (03:18)
[2023-05-24] MEDS: LEVOTHYROXINE SODIUM 25 MCG TABLET PO (06:05)
[2023-05-24] MEDS: HEPARIN SODIUM 5,000 UNITS/ML VIAL 5000 UNITS SUB-Q ×2 (06:05→14:30)
[2023-05-24 07:01] LABS: Basophils Percent Auto 0.1 % (0.2-1.2); Eosinophils Percent Auto 0.1 % (0-4.4); Hematocrit 41.2 % (37.0-47.0); Hemoglobin 12.6 g/dL (12.0-15.0); Immature Granulocyte Absolute 0.03 K/mm3 (0.00-0.031); Immature Granulocyte Percent A 0.4 % (0-0.5); Lymphocytes Percent Auto 12.5 % (18.3-44.2); Mean Corpuscular HGB Conc 30.6 g/dl (32-36); Mean Corpuscular Hemoglobin 26.2 pg (26-34); Mean Corpuscular Volume 85.7 fl (80-100); Mean Platelet Volume 10.2 fl (7.4-10.4); Monocytes Absolute Auto 0.6 K/mm3 (0.1-0.6); Monocytes Percent Auto 7.3 % (2.6-8.5); Neutrophils Absolute Auto 6.4 K/mm3 (1.3-6.7); Neutrophils Percent Auto 79.6 % (45.5-73.1); Platelet Count Result 160 k/mm3 (150-375); Red Blood Count 4.81 M/mm3 (4.2-5.4); Red Cell Distribution Width 23.7 % (11.5-14.5)
[2023-05-24 07:11] LABS: Anion Gap 7 mmol/L (4-12); Blood Urea Nitrogen 33 mg/dL (7-17); Calcium 9.4 mg/dL (8.4-10.2); Carbon Dioxide 28 mmol/L (22-30); Chloride 99 mmol/L (98-107); Estimated CRCL calculation 48 ml/min; Estimated Glomerular Filt Rate 60; Glucose 215 mg/dL (65-110); Magnesium 2.2 mg/dL (1.6-2.3); Potassium 3.7 mmol/L (3.4-5.0); Sodium 134 mmol/L (137-145)
[2023-05-24 07:42] LABS: Anisocytosis 1+; Platelet Estimate Adequate (Adequate); Schistocytes None Seen
[2023-05-24 07:50] LABS: Procalcitonin 0.1 ng/mL
[2023-05-24 07:58] LABS: Glucose Point of Care 211 mg/dl (65-105)
[2023-05-24 08:53] LABS: Abnormal Protein Band 1 0.2 g/dL (NONE DETECTED); Abnormal Protein Band 2 0.1 g/dL (NONE DETECTED); Albumin 2.8 g/dL (3.8-4.8); Alpha 1 Globulin 0.3 g/dL (0.2-0.3); Alpha 2 Globulin 0.7 g/dL (0.5-0.9); Beta 1 Globulin 0.4 g/dL (0.4-0.6); Gamma Globulin 1.1 g/dL (0.8-1.7)
[2023-05-24] MEDS: BENZONATATE 100 MG CAPSULE PO ×3 (09:24→17:04)
[2023-05-24] MEDS: FUROSEMIDE INJ 40 MG/4 ML VIAL IV PUSH ×2 (09:24→17:04)
[2023-05-24] MEDS: SODIUM CHLORIDE 1 GM TABLET PO ×2 (09:24→17:04)
[2023-05-24] MEDS: PRAVASTATIN SODIUM 20 MG TABLET PO (09:24)
[2023-05-24] MEDS: METOPROLOL SUCCINATE EXT REL 25 MG TABCR 75 MG PO (09:24)
[2023-05-24] MEDS: predniSONE 20 MG TABLET 40 MG PO (09:24)
--- NOTE | 2023-05-24 11:13 | PM.DS ---
DS: Admitting Diagnosis Discharge Date May 24, 2023 Admitting Diagnosis Hospital-acquired pneumonia DS: Discharge Diagnosis Discharge Diagnosis (1) HAP (hospital-acquired pneumonia): Code(s): J18.9 - Pneumonia, unspecified organism; Y95 - Nosocomial condition Status: Acute (2) Sepsis: Code(s): A41.9 - Sepsis, unspecified organism Status: Acute (3) Urinary retention: Code(s): R33.9 - Retention of urine, unspecified Status: Acute (4) COPD exacerbation: Code(s): J44.1 - Chronic obstructive pulmonary disease with (acute) exacerbation Status: Acute (5) CHF exacerbation: Qualifiers: Heart failure type: systolic Qualified Code(s): I50.23 - Acute on chronic systolic (congestive) heart failure Code(s): I50.9 - Heart failure, unspecified Status: Acute (6) Dementia, senile with delusions: Code(s): F03.92 - Unspecified dementia, unspecified severity, with psychotic disturbance Status: Acute DS: Summary Hospital Course Hospital Course: This is a pleasant 77-year-old female with a past medical history paroxysmal AFib on Eliquis, valvular heart disease status post bioprosthetic aortic and mitral valve replacements, stage IV breast cancer, iron deficiency anemia, [id number] type 2 diabetes mellitus, hypothyroidism, combined systolic-diastolic heart failure, dementia with delusions who is a permanent resident of [facility] presents with cough and shortness of breath for 2 days. Admitted on 05/15/2023. She was treated for sepsis without shock secondary to pneumonia with Rocephin and azithromycin. Lactic acidosis downtrending. The patient had elevated troponin which did peak at 0.065 and was thought due to supply demand mismatch from sepsis. Concurrently was treated for COPD exacerbation with oral prednisone and scheduled DuoNebs. Her shortness of breath did resolve. As well, treated for mild exacerbation of heart failure due to diuretic being held due to hyponatremia. She developed a post infectious cough which responded well to Tessalon Perles. On May 23 the patient is at her baseline, feeling well, stable for discharge back to her permanent residence at [place]. Adverse effects, risk and benefits of medications discussed with patient. She is in understanding and agreement with this plan in addition to agreeing to follow-up with her primary care within a week for multiple cor morbidities. Her dementia with delusions remained stable. Has history of paroxysmal atrial fibrillation and this was rate controlled. On discharge from last admission she was sent with Eliquis. Upon her readmission she did not have Eliquis on her medication list and this was not restarted. Patient was unsure the reason to this and was hesitant to restart it. However, after further discussion and Education she is amenable to having this restarted on discharge. New prescription made for Eliquis 5 mg p.o. b.i.d.. Patient has chronic mild hyponatremia which acutely dropped to 126 which was likely multifactorial due to low effective arterial volume and loop diuretic use. As mentioned above, she developed mild decompensated heart failure with worsening swelling of the lower extremities. Decision made with Nephrology to prevent the patient from declining due to edema and deconditioning. Discussion also held with patient and decision made to restart Lasix 40 mg p.o. q.day along with concurrent sodium tablet. Her sodium increased appropriately and progressively. Her lower extremity edema also improved and her shortness of breath improved. She will be discharged on this regimen and have a repeat BMP in 2 days. Of note, neurology consulted for urinary retention requiring Wright catheter placement and multiple failed voiding trials. Thought to be due to multifactorial origin including weakness. PTOT consulted and she is being discharged to [place]
[2023-05-24 12:09] LABS: Glucose Point of Care 255 mg/dl (65-105)
[2023-05-24] MEDS: INSULIN ASPART (*BKC) 100 UNITS/ML SUB-Q ×2 (12:29→17:04)
[2023-05-24 13:45] LABS: SARS-CoV-2 RNA PCR Negative (Negative)
[2023-05-24 16:29] LABS: Glucose Point of Care 294 mg/dl (65-105)
--- NOTE | 2023-05-24 18:30 | PC.NURSE ---
This RN reinserted new chadwick 16 F at this time d/t pt failing voiding trial. VSS. Report given to [facility], aware of pt returning with chadwick and plan for OP f/u with urology.IVs d/c'd at this time.
[2023-05-27 15:52] LABS: Adenovirus DNA Not Detected (Not Detected); Chlamydophila pneumoniae Not Detected (Not Detected); Coronavirus 229E Not Detected (Not Detected); Coronavirus HKU1 Not Detected (Not Detected); Coronavirus NL63 Not Detected (Not Detected); Coronavirus OC43 Not Detected (Not Detected); Human Metapneumovirus Not Detected (Not Detected); Human Parainfluenza Virus 1 Not Detected (Not Detected); Human Parainfluenza Virus 2 Not Detected (Not Detected); Human Parainfluenza Virus 3 Detected (Not Detected); Human Parainfluenza Virus 4 Not Detected (Not Detected); Human RSV B Not Detected (Not Detected); Influenza A Not Detected (Not Detected); Influenza B Not Detected (Not Detected); Mycoplasma pneumoniae Not Detected (Not Detected); Rhinovirus/Enterovirus Not Detected (Not Detected)
== END 2023-05-24 18:40 | DRG 871 ==
LOC: ANHED 23:03 → ANHIMU 23:25 → ANH3MEDSUR 05-18 22:27
PROVIDERS: Internal Medicine Nephrology; Student in an Organized Health Care Education/Training Program; Admitting Provider Internal Medicine; Emergency Provider Physician Assistant; PCP Family Medicine; Visit Provider General Practice
DX: A41.9 Sepsis, unspecified organism (principal); I50.43 Acute on chronic combined systolic (congestive) and diastolic (congestive) heart failure; J18.9 Pneumonia, unspecified organism; J44.1 Chronic obstructive pulmonary disease with (acute) exacerbation; F03.92 Unspecified dementia, unspecified severity, with psychotic disturbance; F05 Delirium due to known physiological condition; E87.1 Hypo-osmolality and hyponatremia; C79.51 Secondary malignant neoplasm of bone; C50.912 Malignant neoplasm of unspecified site of left female breast; D50.9 Iron deficiency anemia, unspecified; R33.9 Retention of urine, unspecified; I48.0 Paroxysmal atrial fibrillation; E03.9 Hypothyroidism, unspecified; Z66 Do not resuscitate; Z79.01 Long term (current) use of anticoagulants; Z95.2 Presence of prosthetic heart valve; Z20.822 Contact with and (suspected) exposure to COVID-19
CPT/HCPCS: 36415; 36600; 71045; 74018; 80048; 80053; 81001; 81050; 82533; 82565; 82570; 82805; 82948; 83605; 83735; 83880; 83883; 83930; 83935; 84145; 84155; 84156; 84165; 84166; 84300; 84443; 84484; 84540; 85025; 85027; 85055; 85610; 85730; 86334; 86335; 87040; 87633; 87635; 87637; 87641; 93005; 94640; 96374; 96375; 97110; 97116; 97161; 97165; 97530; 97535; 99285; A9270; J0456; J0696; J1644; J1815; J1940; J2543; J3370; J7512

== ENCOUNTER 2023-05-25 12:55 | Inpatient (IN) | payer MEDICARE, SELFPAY ==
[2023-05-25] VITALS (11 sets, daily range): BP systolic 126–146; BP diastolic 83–99; PULSE 87–113; RESP 14–28; TEMP 36.4–36.8; O2SAT 92–97
--- NOTE | ~2023-05-25 | XR_ITS ---
Clinical Indication: Shortness of breath PA and lateral views of the chest: Comparison: 05/22/2023 Findings: Probable minimal central congestive change. Probable small pleural effusions. Cardiomedias tinal silhouette is stable, status post double cardiac valve replacement. Bones and soft tissues are unremarkable. Impression: Minimal central congestive change and small pleural effusions. Stable cardiomegaly, status post valve replacements. Reviewed, dictated and finalized at location M. Impression: Minimal central congestive change and small pleural effusions. Stable cardiomegaly, status post valve replacements.
--- NOTE | ~2023-05-25 | XR_ITS ---
MODIFIED ESOPHAGRAM HISTORY: Witnessed choking episode TECHNIQUE: Modified barium esophagram was performed on 05/26/2023. I administered fluoroscopy and perf ormed the exam with speech pathologist. Patient was seated for lateral fluoroscopic imaging for christiano stion of thin liquids, pudding, solids and quantified amounts, followed by thin liquids in uncontroll ed amounts. This was recorded on tape. A single fluoroscopic spot image was also recorded. The DAP fo r this procedure was 1.115 Gycm2. The amount of fluoroscopy time used during this procedure was 1.6 m inutes. FINDINGS: Oral stage: Adequate function. Pharyngeal stage: Adequate function. Cervical/esophageal stage: Adequate function. IMPRESSION: Patient tolerated regular consistency oral feedings in the upright position. Please jass elate with speech pathologist findings and specific feeding recommendations. Reviewed, dictated and finalized at location A. IMPRESSION: Patient tolerated regular consistency oral feedings in the upright position. Please correlate with speech pathologist findings and specific feedi ng recommendations.
--- NOTE | 2023-05-25 13:12 | ECG_ITS ---
SEE SCANNED COPY FOR CONFIRMED REPORT MTDD
--- NOTE | 2023-05-25 13:43 | ED.SOB ---
HPI - SOB/Dyspnea General Chief Complaint: Shortness of Breath/Dyspnea Stated Complaint: SOB Time Seen by Provider: 05/25/23 13:07 History of Present Illness HPI Narrative: Patient is a 77 year female who presents ER with shortness of breath. Patient has history of dementia. Discharged yesterday after being hospitalized for pneumonia. Patient received a breathing treatment today for wheezing in the doctor did like how she left/ sounded and sent her in. No reports of hypoxia. Patient is in no distress he was the abdomen has no complaints. patient has awareness of her chronic diseases but gives a poor history as to why she is here or what she was recently hospitalized for. Related Data Home Medications Medication Instructions Recorded Confirmed glipizide 10 mg tablet 15 mg PO DAILY 01/05/23 05/25/23 loratadine 10 mg tablet (Claritin) 10 mg PO DAILY PRN Allergy Symptoms 04/07/23 05/25/23 aspirin 81 mg chewable tablet 81 mg PO PRN PRN Chest Pain 04/26/23 05/25/23 (Aspirin Childrens) fluticasone propionate 50 1 spray intranasal Q12HR PRN 04/26/23 05/25/23 mcg/actuation nasal Congestion spray,suspension Allergies Allergy/AdvReac Type Severity Reaction Status Date / Time doxycycline Allergy Unknown Unknown Verified 05/25/23 18:42 codeine AdvReac Unknown Hallucinati Verified 05/25/23 18:42 ng trimethobenzamide AdvReac Unknown Nausea and Verified 05/25/23 18:42 Vomiting Review of Systems Review of Systems: ROS unobtainable: Yes unobtainable due to mental status PMFSH Past Medical History Medical History (Updated 05/25/23 @ 21:05 by Enmanuel Edwards MD) Breast cancer 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 Patient declined surgery. She has been treated with letrozole. She was seen as a new patient by oncologist Dr. Justin Crisostomo on 03/09/2023 who rec she resume the letrozole, which had been stopped 09/2022 for unknown reasons. 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 Code status: Full code. Smoking status: Never smoker Second hand tobacco smoke exposure: No Alcohol intake: never Substance use: never Substance use type: does not use Do You Feel Safe in your Home?: Yes Lack of Transportation: No Lack of Food: Never True Current Housing: I Have Housing Concerned About Future Housing: No Difficulty Paying Gas/Electric Bills: No Difficulty Paying for Meds: No Currently Unemployed: No Education: High School Diploma/GED Difficulty w/ Childcare or Family Care: No Additional living arrangements comments: Currently staying with [id number] in [place]. . She has no children. 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 Spiritual care concerns: No Exam Narrative: GENERAL: Well-appearing, well-nourished, and in no acute distress. HEAD: Normocephalic, atraumatic. ENT: Mucous membranes moist. CHEST: bibasilar crackles. No respiratory distress. HEART: Regular rate and rhythm. Normal peripheral pulses. ABDOMEN: Soft, nontender, nondistended. EXTREMITIES: Normal range of motion. 2+ edema. SKIN: Warm, dry, no rash. NEURO: Alert and oriented x3
[2023-05-25 13:48] LABS: Basophils Percent Auto 0.1 % (0.2-1.2); Eosinophils Absolute Auto 0.1 K/mm3 (0-0.3); Eosinophils Percent Auto 0.6 % (0-4.4); Hematocrit 45.9 % (37.0-47.0); Hemoglobin 13.9 g/dL (12.0-15.0); Immature Granulocyte Absolute 0.02 K/mm3 (0.00-0.031); Immature Granulocyte Percent A 0.2 % (0-0.5); Lymphocytes Absolute Auto 0.91 K/mm3 (0.9-3.2); Lymphocytes Percent Auto 8.4 % (18.3-44.2); Mean Corpuscular HGB Conc 30.3 g/dl (32-36); Mean Corpuscular Hemoglobin 25.6 pg (26-34); Mean Corpuscular Volume 84.7 fl (80-100); Mean Platelet Volume 10.6 fl (7.4-10.4); Monocytes Absolute Auto 0.6 K/mm3 (0.1-0.6); Monocytes Percent Auto 5.8 % (2.6-8.5); Neutrophils Absolute Auto 9.2 K/mm3 (1.3-6.7); Neutrophils Percent Auto 84.9 % (45.5-73.1); Platelet Count Result 169 k/mm3 (150-375); Red Blood Count 5.42 M/mm3 (4.2-5.4); Red Cell Distribution Width 23.2 % (11.5-14.5); White Blood Count 10.8 K/mm3 (4.5-10.0)
[2023-05-25 13:59] LABS: Alanine Aminotransferase 19 U/L (6-35); Albumin Level 3.6 g/dL (3.5-5.1); Alkaline Phosphatase 66 U/L (38-126); Anion Gap 7 mmol/L (4-12); Aspartate Amino Transferase 24 U/L (14-36); Bilirubin,Total 2.1 mg/dL (0.2-1.3); Blood Urea Nitrogen 32 mg/dL (7-17); Carbon Dioxide 30 mmol/L (22-30); Chloride 97 mmol/L (98-107); Estimated CRCL calculation 44 ml/min; Estimated Glomerular Filt Rate 60; Glucose 263 mg/dL (65-110); Potassium 3.7 mmol/L (3.4-5.0); Sodium 134 mmol/L (137-145)
[2023-05-25 14:05] LABS: INR 1.4; Partial Thromboplastin Time 29.1 Seconds (22.3-36.8); Prothrombin Time 17.8 Seconds (11.1-14.7)
[2023-05-25 14:06] LABS: NT Pro B Type Natriuretic Pept 25000 pg/mL (19.9-100)
[2023-05-25 14:08] LABS: Platelet Estimate Adequate (Adequate); Schistocytes None Seen
[2023-05-25] MEDS: FUROSEMIDE INJ 40 MG/4 ML VIAL IV PUSH ×2 (14:26→20:33)
--- NOTE | 2023-05-25 17:11 | PCCCNOTE ---
05/25/23 1700: Spoke with the pt's Niece who is the HPOA, Camilo Rosa. ED doctor put in consult for hospice. Pt is being admitted. Camilo request [facility]. Referral faxed. Pt has been back and forth between hospital and [facility]. Camilo can not take her to her home due to space limitations. I discussed that pt may qualify for GIP. Waiting on [facility] reply.
--- NOTE | 2023-05-25 18:30 | PM.IMHP ---
H&P: HPI History of Present Illness Date/Time: 05/25/23 18:30 Chief Complaint: Shortness of breath. Narrative: This is a pleasant 77-year-old female with dementia with delusions, paroxysmal atrial fibrillation on chronic anticoagulation, valvular heart disease status post bioprosthetic aortic and mitral valve replacements, combined systolic and diastolic congestive heart failure, pulmonary hypertension, stage IV breast cancer, iron deficiency anemia, type 2 diabetes mellitus, and hypothyroidism who presented to the emergency department via EMS from [facility] for evaluation of shortness of breath. She is not able to provide an accurate history and a majority the following is obtained via a review of her EMR. This will be her 3rd admission to the hospital since April 26, 2023 after presenting with similar complaints. Initially she was treated for CHF exacerbation and more recently pneumonia. She was discharged back to her group home facility yesterday afternoon at which time she appeared at her baseline and she was not hypoxic. According to the triage note, the [facility] physician came to evaluate her today and send her back to the ER. EMS administered a nebulizer treatment and 10 mg Decadron en route to the hospital. On arrival the patient reported that she was a little short of breath but she had no significant complaints. She was afebrile on arrival. Her SpO2 has been dropping into the upper 80s and she is currently on 2 L nasal cannula. Chest x-ray showed minimal central congestive changes and small pleural effusions. Her labs were pretty comparable to what they have been running though her proBNP is a bit higher 25,000. She was given 40 mg IV furosemide and is once again being admitted for further treatment. At the time my evaluation she is asleep will arouse to voice. She reports feeling a bit short of breath but not more so than usual. She has no other complaints and denies fever, chills, sweats, chest pain, cough, abdominal pain, nausea, and vomiting. Review of Systems Review of Systems: Review of systems attempted but limited given her significant short-term memory loss. She states no to every question asked of her. 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 Patient declined surgery. She has been treated with letrozole. She was seen as a new patient by oncologist Dr. Justin Crisostomo on 03/09/2023 who rec she resume the letrozole, which had been stopped 09/2022 for unknown reasons. 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 Code status: Full code. Smoking status: Never smoker Second hand tobacco smoke exposure: No Alcohol intake: never Substance use: never Substance use type: does not use Do You Feel Safe in your Home?: Yes Lack of Transportation: No Lack of Food: Never True Current Housing: I Have Housing Concerned About Future Housing: No Difficulty Paying Gas/Electric Bills: No Difficulty Paying for Meds: No Currently Unemployed: No Education: High School Diploma/GED Difficulty w/ Childcare or Family Care: N
--- NOTE | 2023-05-25 18:36 | ADMGEN ---
This patient, Charito Rey, was admitted to 3 [facility] Surg Room 300-01. Patient/family oriented to hospital policies and general routines including ID bracelet, bed and alarms, visiting hours, pain management, procedures, bathroom and other care routines, personal items, smoking policy, room service/diet, and visiting hours. Information on how to activate the Rapid Response Team has been discussed. Patient/Family are encouraged to report perceived risks to care and to ask questions if they do not understand what they are told or what they should do.
[2023-05-25] MEDS: traZODone HCL 50 MG TABLET PO (20:33)
[2023-05-25] MEDS: APIXABAN 5 MG TABLET PO (20:33)
[2023-05-25] MEDS: INSULIN ASPART (*BKC) 100 UNITS/ML SUB-Q (20:33)
[2023-05-25 20:57] LABS: Glucose Point of Care 298 mg/dl (65-105)
[2023-05-26] VITALS (11 sets, daily range): BP systolic 101–130; BP diastolic 65–78; PULSE 79–99; RESP 18–20; TEMP 36.6–37.3; O2SAT 93–100
[2023-05-26 00:45] LABS: Glucose Point of Care 289 mg/dl (65-105)
[2023-05-26] MEDS: INSULIN ASPART (*BKC) 100 UNITS/ML SUB-Q ×2 (00:46→12:38)
[2023-05-26] MEDS: LEVOTHYROXINE SODIUM 25 MCG TABLET PO (06:52)
[2023-05-26 07:29] LABS: Anion Gap 5 mmol/L (4-12); Blood Urea Nitrogen 31 mg/dL (7-17); Calcium 9.1 mg/dL (8.4-10.2); Carbon Dioxide 35 mmol/L (22-30); Chloride 97 mmol/L (98-107); Estimated CRCL calculation 43 ml/min; Estimated Glomerular Filt Rate 60; Glucose 198 mg/dL (65-110); Magnesium 2.1 mg/dL (1.6-2.3); Potassium 4.3 mmol/L (3.4-5.0); Sodium 137 mmol/L (137-145)
[2023-05-26 07:48] LABS: Glucose Point of Care 205 mg/dl (65-105)
--- NOTE | 2023-05-26 08:05 | PM.IMPN ---
Progress Note: A&P Assessment and Plan (1) Hypoxia: Code(s): R09.02 - Hypoxemia Status: Acute Assessment and Plan: Intermittently hypoxic with SpO2 dropping into the upper 80s. Patient requiring 2L NC. No oxygen supplementation at baseline. Patient likely going to need prn oxygen on discharge. Will order a home O2 evaluation prior to discharge. (2) Combined systolic and diastolic congestive heart failure: Code(s): I50.40 - Unspecified combined systolic (congestive) and diastolic (congestive) heart failure Status: Acute Assessment and Plan: Echo 04/27/23: LVEF 47% with grade 2 diastolic dysfunction. Moderate pulmonary hypertension. Acute exacerbation. CXR with minimal central congestive chage. She received a dose of IV lasix and was restarted on her home PO lasix. - Symptoms: shortness of breath - Current medications: lasix PO, metoprolol - Supportive treatment Tyl Nebs prn - BNP: 18099 (3) Paroxysmal atrial fibrillation: Code(s): I48.0 - Paroxysmal atrial fibrillation Status: Acute Assessment and Plan: Rate controlled on metoprolol. Anticoagulated with eliquis. (4) Hypertension: Code(s): I10 - Essential (primary) hypertension Status: Acute Assessment and Plan: Stable. Well controlled on home medications. - metoprolol 75 mg daily (5) Type 2 diabetes mellitus: Code(s): E11.9 - Type 2 diabetes mellitus without complications Status: Acute Assessment and Plan: - hypoglycemia protocol - POC blood glucose ACHS - home medication - glipizide - A1C 04/26/23: 7.4 (6) Breast cancer: Code(s): C50.919 - Malignant neoplasm of unspecified site of unspecified female breast Status: Acute Assessment and Plan: Breast cancer diagnosed in 2022 with metastasis to femur and spine. Per janneth patient was previously taking a medication for the cancer, however she stopped taking it for unknown reason. Scheduled to see Dr. Flor next month. Time Spent With Patient Time with patient: Greater than 35 minutes Subjective Date/time seen: 05/26/23 08:05 Interval history: 77-year-old female with dementia with delusions, paroxysmal atrial fibrillation on chronic anticoagulation, valvular heart disease status post bioprosthetic aortic and mitral valve replacements, combined systolic and diastolic congestive heart failure, pulmonary hypertension, stage IV breast cancer, iron deficiency anemia, type 2 diabetes mellitus, and hypothyroidism who presented to the emergency department via EMS from [facility] for evaluation of shortness of breath.? Patient is pleasant lying in bed. She states that her shortness of breath has resolved with the O2 supplementation. She denies chest pain, palpitations, nausea/vomiting, and changes in bowel/bladder. Her swallow study was performed and normal, which makes aspiration pneumonia less likely. Patient remains on supplemental O2 at this time. Per RN she refused all of her medications this morning. Spoke with patient and she states she does not like to take her meds all at one time. Per RN patient was confused this morning at AOx1, however during my exam patient was AOx4. Patients nilesh states that prior to moving to [facility] the patient would refuse her medications. Patients nilesh is talking about making patient hospice. Will have to follow up with care coordination due to [facility] not taking private pay at this time for hospice patients. Review of Systems Review of Systems: All systems reviewed & are unremarkable except as noted in HPI and below Exam Narrative: AF HR 86 RR 20 SpO2 97 2L NC BP 101/65 General: female in no acute respiratory distress who is nontoxic appearing, lying semi recumbent in bed. HEENT: Normocephalic. Atraumatic. Pupils equal round reactive to light. Extraocular movement intact. Sclera clear and anicteric. No facial asymmetry. Chest: Lungs are clear to
[2023-05-26 08:29] LABS: Hemoglobin 13.3 g/dL (12.0-15.0); Mean Corpuscular HGB Conc 32.4 g/dl (32-36); Mean Corpuscular Volume 89.5 fl (80-100); Mean Platelet Volume 10.4 fl (7.4-10.4); Platelet Count Result 140 k/mm3 (150-375); Red Blood Count 4.58 M/mm3 (4.2-5.4); Red Cell Distribution Width 25.2 % (11.5-14.5); White Blood Count 7.4 K/mm3 (4.5-10.0)
[2023-05-26] MEDS: SODIUM CHLORIDE 1 GM TABLET PO (09:57)
[2023-05-26] MEDS: FUROSEMIDE 40 MG TABLET PO (09:57)
[2023-05-26] MEDS: POTASSIUM CHLORIDE 20 MEQ ER TABLET PO (09:57)
[2023-05-26] MEDS: METOPROLOL SUCCINATE EXT REL 25 MG TABCR 75 MG PO (09:57)
[2023-05-26] MEDS: PRAVASTATIN SODIUM 20 MG TABLET PO (09:57)
[2023-05-26] MEDS: APIXABAN 5 MG TABLET PO ×2 (09:58→20:07)
[2023-05-26 11:33] LABS: Glucose Point of Care 300 mg/dl (65-105)
[2023-05-26] MEDS: glipiZIDE 5 MG TABLET 15 MG PO (12:36)
[2023-05-26 16:31] LABS: Glucose Point of Care 156 mg/dl (65-105)
[2023-05-26] MEDS: traZODone HCL 50 MG TABLET PO (20:07)
[2023-05-26 20:31] LABS: Glucose Point of Care 131 mg/dl (65-105)
[2023-05-27] VITALS (11 sets, daily range): BP systolic 103–131; BP diastolic 61–84; PULSE 78–108; RESP 16–20; TEMP 36.7–36.9; O2SAT 88–98
[2023-05-27] MEDS: LEVOTHYROXINE SODIUM 25 MCG TABLET PO (05:39)
[2023-05-27] MEDS: PRAVASTATIN SODIUM 20 MG TABLET PO (07:46)
[2023-05-27] MEDS: glipiZIDE 5 MG TABLET 15 MG PO (07:46)
[2023-05-27] MEDS: FUROSEMIDE 40 MG TABLET PO (07:46)
[2023-05-27] MEDS: POTASSIUM CHLORIDE 20 MEQ ER TABLET PO (07:46)
[2023-05-27] MEDS: APIXABAN 5 MG TABLET PO ×2 (07:46→21:25)
[2023-05-27] MEDS: SODIUM CHLORIDE 1 GM TABLET PO (07:46)
[2023-05-27] MEDS: METOPROLOL SUCCINATE EXT REL 25 MG TABCR 75 MG PO (07:50)
[2023-05-27 07:55] LABS: Glucose Point of Care 103 mg/dl (65-105)
[2023-05-27 09:36] LABS: Hematocrit 48.5 % (37.0-47.0); Hemoglobin 14.6 g/dL (12.0-15.0); Mean Corpuscular HGB Conc 30.1 g/dl (32-36); Mean Corpuscular Hemoglobin 25.4 pg (26-34); Mean Corpuscular Volume 84.5 fl (80-100); Mean Platelet Volume 10.5 fl (7.4-10.4); Platelet Count Result 158 k/mm3 (150-375); Red Blood Count 5.74 M/mm3 (4.2-5.4); Red Cell Distribution Width 23.1 % (11.5-14.5); White Blood Count 9.5 K/mm3 (4.5-10.0)
[2023-05-27 09:47] LABS: Anion Gap 4 mmol/L (4-12); Blood Urea Nitrogen 32 mg/dL (7-17); Calcium 9.1 mg/dL (8.4-10.2); Carbon Dioxide 38 mmol/L (22-30); Chloride 97 mmol/L (98-107); Estimated CRCL calculation 44 ml/min; Estimated Glomerular Filt Rate 60; Glucose 112 mg/dL (65-110); Potassium 3.2 mmol/L (3.4-5.0); Sodium 139 mmol/L (137-145)
[2023-05-27 12:14] LABS: Glucose Point of Care 154 mg/dl (65-105)
--- NOTE | 2023-05-27 14:04 | PM.IMPN ---
Progress Note: A&P Assessment and Plan (1) Hypoxia: Code(s): R09.02 - Hypoxemia Status: Acute Assessment and Plan: Intermittently hypoxic with SpO2 dropping into the upper 80s. Patient requiring 2L NC. No oxygen supplementation at baseline. Patient likely going to need prn oxygen on discharge. Will order a home O2 evaluation prior to discharge. (2) Combined systolic and diastolic congestive heart failure: Code(s): I50.40 - Unspecified combined systolic (congestive) and diastolic (congestive) heart failure Status: Acute Assessment and Plan: Echo 04/27/23: LVEF 47% with grade 2 diastolic dysfunction. Moderate pulmonary hypertension. Acute exacerbation. CXR with minimal central congestive chage. She received a dose of IV lasix and was restarted on her home PO lasix. - Symptoms: shortness of breath - Current medications: lasix PO, metoprolol - Supportive treatment Tyl Nebs prn - BNP: 04077 (3) Paroxysmal atrial fibrillation: Code(s): I48.0 - Paroxysmal atrial fibrillation Status: Acute Assessment and Plan: Rate controlled on metoprolol. Anticoagulated with eliquis. (4) Hypertension: Code(s): I10 - Essential (primary) hypertension Status: Acute Assessment and Plan: Stable. Well controlled on home medications. - metoprolol 75 mg daily (5) Type 2 diabetes mellitus: Code(s): E11.9 - Type 2 diabetes mellitus without complications Status: Acute Assessment and Plan: - hypoglycemia protocol - POC blood glucose ACHS - home medication - glipizide - A1C 04/26/23: 7.4 (6) Hypothyroid: Code(s): E03.9 - Hypothyroidism, unspecified Status: Acute Assessment and Plan: TSH 1.300. Continue home levothyroxine 25mg. Time Spent With Patient Time with patient: 25 - 35 minutes Subjective Date/time seen: 05/27/23 14:04 Interval history: 77-year-old female with dementia with delusions, paroxysmal atrial fibrillation on chronic anticoagulation, valvular heart disease status post bioprosthetic aortic and mitral valve replacements, combined systolic and diastolic congestive heart failure, pulmonary hypertension, stage IV breast cancer, iron deficiency anemia, type 2 diabetes mellitus, and hypothyroidism who presented to the emergency department via EMS from [facility] for evaluation of shortness of breath.? Upon entering the patients room she was found to be off of her oxygen supplementation. Asked patient when the O2 was removed and she states she took it off. Rechecked her SpO2 at that time and it was 84%. Placed patient back on 2L NC and her SpO2 returned to normal limits. Patients nurse then attempted to give patient her medication, however patient was noncompliant at that time. Discussed with patient the importance of these medications, especially the lasix due to her heart failure. She states understanding but notes that sometimes she just does not feel like it. Talked with patient about hospice and she states that she and her niece had a discussion about it as well. She is not currently against hospice at this time. She was originally suppose to go on hospice status, however [facility] does not have a private pay hospice bed at this time. According to care coordination patient plans to return to [facility] at discharge. Review of Systems Review of Systems: All systems reviewed & are unremarkable except as noted in HPI and below Exam Narrative: AF HR 86 RR 20 SpO2 97 2L NC BP 101/65 General: female in no acute respiratory distress who is nontoxic appearing, lying semi recumbent in bed. HEENT: Normocephalic. Atraumatic. Pupils equal round reactive to light. Extraocular movement intact. Sclera clear and anicteric. No facial asymmetry. Chest: Lungs are diminished to auscultation bilaterally. No wheezes or crackles. CV: Heart was regular rate and rhythm. S1-S2. No murmurs, gallops, or rubs. Abd: Abdo
[2023-05-27 16:29] LABS: Glucose Point of Care 211 mg/dl (65-105)
[2023-05-27] MEDS: INSULIN ASPART (*BKC) 100 UNITS/ML SUB-Q (16:49)
[2023-05-27 20:43] LABS: Glucose Point of Care 176 mg/dl (65-105)
[2023-05-27] MEDS: traZODone HCL 50 MG TABLET PO (21:25)
[2023-05-28] VITALS (10 sets, daily range): BP systolic 113–121; BP diastolic 56–88; PULSE 74–102; RESP 18–20; TEMP 36.4–37.2; O2SAT 94–97
[2023-05-28 05:28] LABS: Hematocrit 43.8 % (37.0-47.0); Hemoglobin 13.6 g/dL (12.0-15.0); Immature Platelet Fraction Pct 5.1 % (0.9-11.2); Mean Corpuscular HGB Conc 31.1 g/dl (32-36); Mean Corpuscular Hemoglobin 26.8 pg (26-34); Mean Corpuscular Volume 86.4 fl (80-100); Mean Platelet Volume 10.6 fl (7.4-10.4); Platelet Count Result 147 k/mm3 (150-375); Red Blood Count 5.07 M/mm3 (4.2-5.4); Red Cell Distribution Width 23.3 % (11.5-14.5); White Blood Count 8.6 K/mm3 (4.5-10.0)
[2023-05-28 05:33] LABS: Anion Gap 2 mmol/L (4-12); Blood Urea Nitrogen 32 mg/dL (7-17); Calcium 8.4 mg/dL (8.4-10.2); Carbon Dioxide 32 mmol/L (22-30); Chloride 99 mmol/L (98-107); Estimated CRCL calculation 55 ml/min; Estimated Glomerular Filt Rate > 60; Glucose 136 mg/dL (65-110); Potassium 3.6 mmol/L (3.4-5.0); Sodium 133 mmol/L (137-145)
[2023-05-28] MEDS: LEVOTHYROXINE SODIUM 25 MCG TABLET PO (05:42)
[2023-05-28 07:32] LABS: Glucose Point of Care 142 mg/dl (65-105)
[2023-05-28] MEDS: PRAVASTATIN SODIUM 20 MG TABLET PO (07:57)
[2023-05-28] MEDS: POTASSIUM CHLORIDE 20 MEQ ER TABLET PO (07:57)
[2023-05-28] MEDS: glipiZIDE 5 MG TABLET 15 MG PO (07:57)
[2023-05-28] MEDS: FUROSEMIDE 40 MG TABLET PO (07:57)
[2023-05-28] MEDS: METOPROLOL SUCCINATE EXT REL 25 MG TABCR 75 MG PO (07:57)
[2023-05-28] MEDS: APIXABAN 5 MG TABLET PO ×2 (07:57→21:03)
[2023-05-28] MEDS: SODIUM CHLORIDE 1 GM TABLET PO (07:57)
--- NOTE | 2023-05-28 08:48 | PM.IMPN ---
Progress Note: A&P Assessment and Plan (1) Hypoxia: Code(s): R09.02 - Hypoxemia Status: Acute Assessment and Plan: Intermittently hypoxic with SpO2 dropping into the upper 80s. Patient requiring 2L NC. No oxygen supplementation at baseline. Patient likely going to need prn oxygen on discharge. No home O2 evaluation needed due to patient going SNF at discharge. - Wean as tolerated for SpO2 >92% (2) Combined systolic and diastolic congestive heart failure: Code(s): I50.40 - Unspecified combined systolic (congestive) and diastolic (congestive) heart failure Status: Acute Assessment and Plan: Echo 04/27/23: LVEF 47% with grade 2 diastolic dysfunction. Moderate pulmonary hypertension. Acute exacerbation. CXR with minimal central congestive change. She received a dose of IV lasix and was restarted on her home PO lasix. Patient continues to pick and choose when she wants to take her medications. She has diminished lung sounds and pitting bilateral lower extremity edema. Lasix IV x1 ordered. - Symptoms: shortness of breath, bilateral lower extremity edema - Current medications: lasix PO, metoprolol - Supportive treatment Tyl Nebs prn - BNP: 39149 (3) Paroxysmal atrial fibrillation: Code(s): I48.0 - Paroxysmal atrial fibrillation Status: Acute Assessment and Plan: Rate controlled on metoprolol. Anticoagulated with eliquis. (4) Hypertension: Code(s): I10 - Essential (primary) hypertension Status: Acute Assessment and Plan: Stable. Well controlled on home medications. - metoprolol 75 mg daily (5) Type 2 diabetes mellitus: Code(s): E11.9 - Type 2 diabetes mellitus without complications Status: Acute Assessment and Plan: - hypoglycemia protocol - POC blood glucose ACHS - home medication - glipizide - A1C 04/26/23: 7.4 (6) Hypothyroid: Code(s): E03.9 - Hypothyroidism, unspecified Status: Acute Assessment and Plan: TSH 1.300. Continue home levothyroxine 25mg. Time Spent With Patient Time with patient: 25 - 35 minutes Subjective Date/time seen: 05/28/23 08:48 Interval history: 77-year-old female with dementia with delusions, paroxysmal atrial fibrillation on chronic anticoagulation, valvular heart disease status post bioprosthetic aortic and mitral valve replacements, combined systolic and diastolic congestive heart failure, pulmonary hypertension, stage IV breast cancer, iron deficiency anemia, type 2 diabetes mellitus, and hypothyroidism who presented to the emergency department via EMS from [facility] for evaluation of shortness of breath.? Patient is pleasant lying comfortably in bed with niece at bedside. She continues to delay her medications, only taking them every now and then. She states she knows she should take her medicine but does not feel like it all the time. Patient remains on O2 supplementation at this time. Her lungs remain diminished and she has bilateral lower extremity pitting edema. Will give a dose of IV lasix due to patients noncompliance of the PO. She denies shortness of breath, chest pain, nausea/vomiting, and diarrhea. She continues to have a chadwick in place at this time with dark yellow urine. Urine output remains within normal limits. Patient is to be discharged when accepted by a SNF, currently pending acceptance at [facility]. Review of Systems Review of Systems: All systems reviewed & are unremarkable except as noted in HPI and below Exam Narrative: AF HR 83 RR 18 SpO2 95 2L NC BP 114/88 General: female in no acute respiratory distress who is nontoxic appearing, sitting up in bed with niece at bedside. HEENT: Normocephalic. Atraumatic. Extraocular movement intact. No facial asymmetry. Chest: Lungs are diminished to auscultation bilaterally. No wheezes or crackles. CV: Heart was regular rate and rhythm. S1-S2. No murmurs, gallops, or rubs. Abd: Abdomen was soft. Nonten
[2023-05-28] MEDS: FUROSEMIDE INJ 40 MG/4 ML VIAL 20 MG IV PUSH (11:08)
[2023-05-28] MEDS: INSULIN ASPART (*BKC) 100 UNITS/ML SUB-Q ×2 (11:12→16:48)
[2023-05-28 11:17] LABS: Glucose Point of Care 241 mg/dl (65-105)
[2023-05-28 16:30] LABS: Glucose Point of Care 229 mg/dl (65-105)
[2023-05-28] MEDS: traZODone HCL 50 MG TABLET PO (21:03)
[2023-05-28 21:37] LABS: Glucose Point of Care 191 mg/dl (65-105)
[2023-05-29] MEDS: LEVOTHYROXINE SODIUM 25 MCG TABLET PO (05:12)
[2023-05-29 06:00] VITALS: BP 128/89; PULSE 89; RESP 20; TEMP 36.6; O2SAT 91
[2023-05-29 06:27] LABS: Hematocrit 36.6 % (37.0-47.0); Hemoglobin 13.5 g/dL (12.0-15.0); Mean Corpuscular HGB Conc 36.9 g/dl (32-36); Mean Corpuscular Hemoglobin 35.2 pg (26-34); Mean Corpuscular Volume 95.3 fl (80-100); Platelet Count Result 137 k/mm3 (150-375); Red Blood Count 3.84 M/mm3 (4.2-5.4); Red Cell Distribution Width 28.5 % (11.5-14.5); White Blood Count 7.5 K/mm3 (4.5-10.0)
[2023-05-29 06:35] LABS: Anion Gap 2 mmol/L (4-12); Blood Urea Nitrogen 27 mg/dL (7-17); Calcium 8.6 mg/dL (8.4-10.2); Carbon Dioxide 35 mmol/L (22-30); Chloride 99 mmol/L (98-107); Estimated CRCL calculation 48 ml/min; Estimated Glomerular Filt Rate > 60; Glucose 127 mg/dL (65-110); Potassium 3.2 mmol/L (3.4-5.0); Sodium 136 mmol/L (137-145)
--- NOTE | 2023-05-29 07:00 | PM.IMPN ---
Progress Note: A&P Assessment and Plan (1) Hypoxia: Code(s): R09.02 - Hypoxemia Status: Acute Assessment and Plan: Intermittently hypoxic with SpO2 dropping into the upper 80s. Patient requiring 2L NC. No oxygen supplementation at baseline. Patient likely going to need prn oxygen on discharge. No home O2 evaluation needed due to patient going SNF at discharge. - Wean as tolerated for SpO2 >92% (2) Combined systolic and diastolic congestive heart failure: Code(s): I50.40 - Unspecified combined systolic (congestive) and diastolic (congestive) heart failure Status: Acute Assessment and Plan: Echo 04/27/23: LVEF 47% with grade 2 diastolic dysfunction. Moderate pulmonary hypertension. Acute exacerbation. CXR with minimal central congestive change. She received a dose of IV lasix and was restarted on her home PO lasix. Patient continues to pick and choose when she wants to take her medications. She has diminished lung sounds and pitting bilateral lower extremity edema. Lasix IV x1 ordered. - Symptoms: shortness of breath, bilateral lower extremity edema - Current medications: lasix PO, metoprolol - Supportive treatment Tyl Nebs prn - BNP: 79503 (3) Paroxysmal atrial fibrillation: Code(s): I48.0 - Paroxysmal atrial fibrillation Status: Acute Assessment and Plan: Rate controlled on metoprolol. Anticoagulated with eliquis. (4) Hypertension: Code(s): I10 - Essential (primary) hypertension Status: Acute Assessment and Plan: Stable. Well controlled on home medications. - metoprolol 75 mg daily (5) Type 2 diabetes mellitus: Code(s): E11.9 - Type 2 diabetes mellitus without complications Status: Acute Assessment and Plan: - hypoglycemia protocol - POC blood glucose ACHS - home medication - glipizide - A1C 04/26/23: 7.4 (6) Hypothyroid: Code(s): E03.9 - Hypothyroidism, unspecified Status: Acute Assessment and Plan: TSH 1.300. Continue home levothyroxine 25mg. Subjective Date/time seen: 05/29/23 07:00 Interval history: 77-year-old female with dementia with delusions, paroxysmal atrial fibrillation on chronic anticoagulation, valvular heart disease status post bioprosthetic aortic and mitral valve replacements, combined systolic and diastolic congestive heart failure, pulmonary hypertension, stage IV breast cancer, iron deficiency anemia, type 2 diabetes mellitus, and hypothyroidism who presented to the emergency department via EMS from [facility] for evaluation of shortness of breath.? Review of Systems Review of Systems: All systems reviewed & are unremarkable except as noted in HPI and below Exam Narrative: AF General: female in no acute respiratory distress who is nontoxic appearing, sitting up in bed with niece at bedside. HEENT: Normocephalic. Atraumatic. Extraocular movement intact. No facial asymmetry. Chest: Lungs are diminished to auscultation bilaterally. No wheezes or crackles. CV: Heart was regular rate and rhythm. S1-S2. No murmurs, gallops, or rubs. Abd: Abdomen was soft. Nontender. Nondistended. Positive bowel sounds. No organomegaly or masses. Ext: Bilateral lower extremity pitting edema. No clubbing, cyanosis. 2+ DP pulses bilaterally. Neuro: Patient is alert and oriented x4. Speech is clear. Psych: Normal mood and affect. Patient is pleasant and cooperative. Skin: Warm and dry. No rashes noted. Objective Data Vital Signs Vital Signs: Vital Signs - 24 hr 05/28/23 07:57 05/28/23 08:00 05/28/23 08:00 Temperature Pulse Rate 102 H 102 H Respiratory Rate Blood Pressure Pulse Oximetry 95 Oxygen Delivery Nasal Cannula Oxygen Flow Rate 2 05/28/23 12:00 05/28/23 13:28 05/28/23 14:00 Temperature 97.6 F Pulse Rate 86 74 Respiratory Rate 20 Blood Pressure 121/56 L Pulse Oximetry 97 Oxygen Delivery Nasal Cannula Oxygen Flow Ra
[2023-05-29 07:40] LABS: Glucose Point of Care 122 mg/dl (65-105)
[2023-05-29] MEDS: POTASSIUM CHLORIDE 20 MEQ PACKET (FOR LIQUID) 40 MEQ PO (07:43)
[2023-05-29 08:00] VITALS: PULSE 89; RESP 20; O2SAT 91
--- NOTE | 2023-05-29 09:23 | PC.NURSE ---
Pt refusing all PO medications this morning. She states I'm not a medicine person today and I'm not taking them . Hospitalist aware.
[2023-05-29 11:16] LABS: Glucose Point of Care 247 mg/dl (65-105)
[2023-05-29] MEDS: INSULIN ASPART (*BKC) 100 UNITS/ML SUB-Q (12:01)
[2023-05-29 12:40] LABS: SARS-CoV-2 RNA PCR Negative (Negative)
[2023-05-29 14:00] VITALS: BP 102/71; PULSE 64; RESP 16; TEMP 36.8; O2SAT 92
[2023-05-29 16:24] LABS: Glucose Point of Care 232 mg/dl (65-105)
--- NOTE | 2023-05-29 16:49 | PM.DS ---
DS: Admitting Diagnosis Discharge Date 05/29/23 Admitting Diagnosis Hypoxia Combined systolic and diastolic congestive heart failure Paroxysmal atrial fibrillation Hypertension Type 2 diabetes Hypothyroid DS: Discharge Diagnosis Discharge Diagnosis (1) Hypoxia: Code(s): R09.02 - Hypoxemia Status: Acute (2) Combined systolic and diastolic congestive heart failure: Code(s): I50.40 - Unspecified combined systolic (congestive) and diastolic (congestive) heart failure Status: Acute (3) Paroxysmal atrial fibrillation: Code(s): I48.0 - Paroxysmal atrial fibrillation Status: Acute (4) Hypertension: Code(s): I10 - Essential (primary) hypertension Status: Acute (5) Type 2 diabetes mellitus: Code(s): E11.9 - Type 2 diabetes mellitus without complications Status: Acute (6) Hypothyroid: Code(s): E03.9 - Hypothyroidism, unspecified Status: Acute DS: Summary Hospital Course Reason for hospitalization: Hypoxia Combined systolic and diastolic congestive heart failure Paroxysmal atrial fibrillation Hypertension Type 2 diabetes Hypothyroid Hospital Course: 77-year-old female with dementia with delusions, paroxysmal atrial fibrillation on chronic anticoagulation, valvular heart disease status post bioprosthetic aortic and mitral valve replacements, combined systolic and diastolic congestive heart failure, pulmonary hypertension, stage IV breast cancer, iron deficiency anemia, type 2 diabetes mellitus, and hypothyroidism who presented to the emergency department via EMS from [facility] for evaluation of shortness of breath.?Patient was intermittently hypoxic with SpO2 dropping into the upper 80s, requiring 2L NC. Chest XR was obtained and showed Minimal central congestive change and small pleural effusions.Stable cardiomegaly, status post valve replacements. She received IV lasix and was restarted on her home PO lasix. Patient was noncompliant with medications throughout admission. Spoke with nilesh BALDWIN and patient and plan was hospice, however due to insurance not covering placement patient did not go hospice status. Discussed with patient the importance of medication compliance and she states understanding, but states sometimes she does not feel like it . A chadwick was in place during admission. A successful voiding trial was performed prior to discharge. Patient was discharged in a stable condition to [facility]. She remains on oxygen supplementation at discharge which will be managed at [facility]. Discussed with patient the importance of taking her medication as prescribed. She states understanding. She will follow up with her PCP in 1 week. Status at Discharge Functional status at discharge: uses cane/walker Time Spent with Patient Time attestation: Total time spent providing and/or coordinating discharge services: Time spent: Greater than 30 minutes Exam Narrative: AF HR 64 RR 16 SpO2 92 2L NC BP 102/71 General:? female in no acute respiratory distress who is nontoxic appearing, sitting up in chair HEENT: Normocephalic. Atraumatic. Extraocular movement intact. No facial asymmetry. Chest: Lungs are diminished to auscultation bilaterally. No wheezes or crackles. CV: Heart was regular rate and rhythm. S1-S2. No murmurs, gallops, or rubs. Abd: Abdomen was soft. Nontender. Nondistended. Positive bowel sounds. No organomegaly or masses. Ext: Bilateral lower extremity pitting edema. No clubbing, cyanosis.? 2+ DP pulses bilaterally. Neuro: Patient is alert and oriented x4.? Speech is clear. Psych: Normal mood and affect. Patient is pleasant and cooperative. Skin: Warm and dry. No rashes noted. DS: Data Data Completed and Pending Completed studies during hospitalization: Chest XR Modified barium swallow Labs on day of discharge: Labs from last 24 hours 05/29/23 05/29/23 05/29/23 16:20 11:59 11:06 WBC RBC Hgb Hct MCV MCH MCHC RDW
== END 2023-05-29 17:28 | DRG 291 ==
LOC: ANHED 13:30 → ANH3MEDSUR 17:54
PROVIDERS: Physician Assistant; Student in an Organized Health Care Education/Training Program; Admitting Provider Family Medicine; Emergency Provider Emergency Medicine; PCP Family Medicine; Visit Provider General Practice
DX: I11.0 Hypertensive heart disease with heart failure (principal); I50.43 Acute on chronic combined systolic (congestive) and diastolic (congestive) heart failure; C79.51 Secondary malignant neoplasm of bone; C50.912 Malignant neoplasm of unspecified site of left female breast; I48.0 Paroxysmal atrial fibrillation; D50.9 Iron deficiency anemia, unspecified; E03.9 Hypothyroidism, unspecified; E78.5 Hyperlipidemia, unspecified; E11.9 Type 2 diabetes mellitus without complications; F03.90 Unspecified dementia, unspecified severity, without behavioral disturbance, psychotic disturbance, mood disturbance, and anxiety; R09.02 Hypoxemia; Z79.84 Long term (current) use of oral hypoglycemic drugs; Z79.82 Long term (current) use of aspirin; Z79.01 Long term (current) use of anticoagulants; Z95.2 Presence of prosthetic heart valve; Z91.148 Patient's other noncompliance with medication regimen for other reason
CPT/HCPCS: 36415; 71046; 80048; 80053; 82948; 83735; 83880; 85025; 85027; 85055; 85610; 85730; 87635; 92611; 93005; 96374; 96376; 97161; 97165; 97535; 99285; A9270; G0378; J1815; J1940

== ENCOUNTER 2023-06-14 08:10 | Inpatient (IN) | payer MEDICARE, SELFPAY ==
[2023-06-14] VITALS (22 sets, daily range): BP systolic 102–146; BP diastolic 72–96; PULSE 63–98; RESP 12–25; TEMP 36.2–36.7; O2SAT 84–100; BMI 32.1
--- NOTE | ~2023-06-14 | XR_ITS ---
EXAMINATION: XR chest 2V DATE: 06/14/2023 09:10 INDICATION: Shortness of breath. TECHNIQUE: Frontal and lateral views of the chest were obtained. COMPARISON: Chest 2 views 05/25/2023 FINDINGS: There are small pleural effusions. There is an interstitial pattern in the lungs, consisten t mild pulmonary edema. No pneumothorax. Cardiomegaly is noted. There are changes of heart valve repl acements. There is a closure device at left atrial appendage. IMPRESSION: 1. Mild pulmonary edema. 2. Stable small pleural effusions. 3. Cardiomegaly. Reviewed, dictated and finalized at location A.
--- NOTE | ~2023-06-14 | US_ITS ---
EXAMINATION: US venous doppler [facility] DATE: 06/14/2023 20:47 INDICATION: bilateral lower extremity edema . TECHNIQUE: Grayscale images without and with compression and Doppler images of the bilateral lower ex tremity veins were obtained. COMPARISON: 04/15/2023 FINDINGS: The right common femoral vein, profunda (deep) femoral vein, femoral vein, popliteal vein, peroneal v ein, posterior tibial veins, and greater saphenous vein are patent. The left common femoral vein, profunda (deep) femoral vein, femoral vein, popliteal vein, peroneal v ein, posterior tibial veins, and greater saphenous vein are patent. IMPRESSION: Patent bilateral lower extremity veins. No evidence of deep venous thrombosis. Reviewed, dictated and finalized at location K.
--- NOTE | 2023-06-14 08:16 | ECG_ITS ---
SEE SCANNED COPY FOR CONFIRMED REPORT MTDD
[2023-06-14 08:57] LABS: Basophils Percent Auto 0.5 % (0.2-1.2); Eosinophils Absolute Auto 0.2 K/mm3 (0-0.3); Eosinophils Percent Auto 3.9 % (0-4.4); Hematocrit 43.6 % (37.0-47.0); Hemoglobin 13.2 g/dL (12.0-15.0); Immature Granulocyte Absolute 0.02 K/mm3 (0.00-0.031); Immature Granulocyte Percent A 0.4 % (0-0.5); Lymphocytes Absolute Auto 1.22 K/mm3 (0.9-3.2); Lymphocytes Percent Auto 21.8 % (18.3-44.2); Mean Corpuscular HGB Conc 30.3 g/dl (32-36); Mean Corpuscular Hemoglobin 26.2 pg (26-34); Mean Corpuscular Volume 86.7 fl (80-100); Mean Platelet Volume 10.4 fl (7.4-10.4); Monocytes Absolute Auto 0.3 K/mm3 (0.1-0.6); Monocytes Percent Auto 5.7 % (2.6-8.5); Neutrophils Absolute Auto 3.8 K/mm3 (1.3-6.7); Neutrophils Percent Auto 67.7 % (45.5-73.1); Platelet Count Result 193 k/mm3 (150-375); Red Blood Count 5.03 M/mm3 (4.2-5.4); Red Cell Distribution Width 22.2 % (11.5-14.5); White Blood Count 5.6 K/mm3 (4.5-10.0)
[2023-06-14 09:08] LABS: Alanine Aminotransferase 20 U/L (6-35); Albumin Level 3.5 g/dL (3.5-5.1); Alkaline Phosphatase 116 U/L (38-126); Anion Gap 5 mmol/L (4-12); Aspartate Amino Transferase 27 U/L (14-36); Bilirubin,Total 2.7 mg/dL (0.2-1.3); Blood Urea Nitrogen 15 mg/dL (7-17); Calcium 8.9 mg/dL (8.4-10.2); Carbon Dioxide 33 mmol/L (22-30); Chloride 100 mmol/L (98-107); Estimated Glomerular Filt Rate > 60; Glucose 113 mg/dL (65-110); Potassium 3.6 mmol/L (3.4-5.0); Sodium 138 mmol/L (137-145)
[2023-06-14 09:09] LABS: Anisocytosis 1+; Platelet Estimate Adequate (Adequate); Schistocytes None Seen
[2023-06-14 09:16] LABS: NT Pro B Type Natriuretic Pept 23500 pg/mL (19.9-100)
--- NOTE | 2023-06-14 10:21 | ED.GENADULT ---
HPI - General Adult General Chief complaint: Shortness of Breath/Dyspnea Stated complaint: SOB Time Seen by Provider: 06/14/23 08:21 History of Present Illness HPI narrative: 77-year-old female presented emergency department for evaluation for shortness of breath. Upon arrival to the emergency department patient initially stated that her shortness of breath had improved. While patient was in the emergency department she did develop a oxygen requirement. Patient does have a history of CHF, COPD, AFib with RVR, diabetes Related Data Home Medications Medication Instructions Recorded Confirmed loratadine 10 mg tablet (Claritin) 10 mg PO DAILY PRN Allergy Symptoms 04/07/23 06/14/23 aspirin 81 mg chewable tablet 81 mg PO PRN PRN Chest Pain 04/26/23 06/14/23 (Aspirin Childrens) glipizide 10 mg tablet, extended 10 mg PO DAILY 06/14/23 06/14/23 release 24 hr metoprolol succinate 25 mg 200 mg PO QAM 06/14/23 06/14/23 tablet,extended release 24 hr (Toprol XL) Allergies Allergy/AdvReac Type Severity Reaction Status Date / Time doxycycline Allergy Unknown Unknown Verified 05/25/23 18:42 codeine AdvReac Unknown Hallucinati Verified 05/25/23 18:42 ng trimethobenzamide AdvReac Unknown Nausea and Verified 05/25/23 18:42 Vomiting Review of Systems Review of Systems: All systems reviewed & are unremarkable except as noted in HPI and below PMFSH Past Medical History Medical History Breast cancer 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 Patient declined surgery. She has been treated with letrozole. She was seen as a new patient by oncologist Dr. Justin Crisostomo on 03/09/2023 who rec she resume the letrozole, which had been stopped 09/2022 for unknown reasons. Chronic anticoagulation Combined systolic and diastolic congestive heart failure Dementia, senile with delusions Hyperlipidemia Hypertension Paroxysmal atrial fibrillation Type 2 diabetes mellitus Valvular heart disease Surgical History Surgical History History of aortic valve replacement with bioprosthetic valve History of left atrial appendage closure History of mitral valve replacement with bioprosthetic valve Family History Family History Mother Heart disease Father Cancer Sibling Cancer Social History Social History Social History: Healthcare power of escalator operator: Camilo Rosa, nizaira. Code status: Full code. Smoking status: Never smoker Second hand tobacco smoke exposure: No Alcohol intake: never Substance use: never Substance use type: does not use Do You Feel Safe in your Home?: Yes Lack of Transportation: No Lack of Food: Never True Current Housing: I Have Housing Concerned About Future Housing: No Difficulty Paying Gas/Electric Bills: No Difficulty Paying for Meds: No Currently Unemployed: No Education: High School Diploma/GED Difficulty w/ Childcare or Family Care: No Additional living arrangements comments: Currently staying with [id number] in [place]. . She has no children. 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 Spiritual care concerns: No Exam Narrative: APPEARANCE: Well appearing, no pain, no distress, well-nourished. HEAD: normocephalic, atraumatic. EYES: PERRLA/EOMI, conjunctivae clear. NOSE: Normal no drainage EARS:TMS clear with good light reflex. THROAT: Pharynx clear, no exudate. NECK: Supple. No adenopathy, no masses. RESPIRATORY: Airway patent, respirations nonlabored. Clear to auscultation bilaterally, no rales, rhonchi, wheezing. CARDIOVASCULAR: Regular rate and rhythm without murmurs rubs or gallops. ABDOMINAL: Soft, nontender, nondistended, normal
[2023-06-14] MEDS: FUROSEMIDE INJ 40 MG/4 ML VIAL IV PUSH ×2 (10:34→20:03)
[2023-06-14 11:12] LABS: Appearance Urine Clear (Clear); Bacteria Urine None Seen /hpf; Bilirubin Urine Negative (Negative); Blood Urine Negative (Negative); Color Urine Dark Yellow (Yellow); Glucose Urine UA Negative (Negative); Ketones Urine Negative (Negative); Leukocyte Esterase Ur 2+ LEU/UL (Negative); Nitrate Urine Negative (Negative); Non Pathogenic Casts 0-2; Protein Urine Trace mg/dL (Negative); Squamous Epithelial Cell Urine None Seen /hpf (Few); WBC Urine 21-50 /hpf (0-3); pH Urine 6.5 (5.0-9.0)
[2023-06-14 11:16] LABS: Add Urine Microscopic? YES
[2023-06-14 11:47] LABS: Influenza A QL RT-PCR Negative (Negative); Influenza B QL RT-PCR Negative (Negative); RSV RNA, RT-PCR Negative (Negative); SARS-CoV-2 RNA PCR Negative (Negative)
--- NOTE | 2023-06-14 12:36 | PC.NURSE ---
This patient, Charito Rey, was admitted to Medical Room 344-01. Patient/family oriented to hospital policies and general routines including ID bracelet, bed and alarms, visiting hours, pain management, procedures, bathroom and other care routines, personal items, smoking policy, room service/diet, and visiting hours. Information on how to activate the Rapid Response Team has been discussed. Patient/Family are encouraged to report perceived risks to care and to ask questions if they do not understand what they are told or what they should do.
--- NOTE | 2023-06-14 14:22 | PM.IMHP ---
H&P: HPI History of Present Illness Date/Time: 06/14/23 14:45 Chief Complaint: Shortness of breath. Narrative: This is a 77-year-old female with dementia with delusions, paroxysmal atrial fibrillation no longer on anticoagulation, valvular heart disease status post bioprosthetic aortic and mitral valve replacements, combined systolic and diastolic congestive heart failure, pulmonary hypertension, stage IV breast cancer, iron deficiency anemia, type 2 diabetes mellitus, and hypothyroidism who presented to the emergency department via EMS from [facility] for evaluation of shortness of breath. She is not able to provide an accurate history and a majority the following is obtained via a review of her EMR. This will be her 4th admission to the hospital since April 26, 2023 after presenting with similar complaints. She has been treated for pneumonia and multiple CHF exacerbations. During her last stay her niece met with [facility] hospice and unfortunately there were issues getting her set up with hospice and was unable to be done for unclear reasons. She was able to be discharged to a rehab facility where she has been participating in physical therapy. She continues to refuse taking her medications most days and she has gained approximately 7 lb in the last several days and has become increasingly short of breath. This morning she was more short of breath, hypoxic, and she was sent to ER for evaluation. At the time my evaluation the patient is on the bedside commode and sister shortness of breath is better. She does not know why she is not taking her medications. She denies fever, chest pain, pleuritic pain, current shortness of breath, cough, nausea, vomiting, and calf pain. In the ED: She was afebrile on arrival. SpO2 was as low as 84% on room air. She is currently requiring 3 L nasal cannula. ProBNP was [address]. Chest x-ray showed mild pulmonary edema with stable small pleural effusions. She was given a dose of IV furosemide and she is being admitted in this setting for further diuresis. Review of Systems Review of Systems: Review of systems attempted but limited given her significant short-term memory loss. She states no to every question asked of her. 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 Patient declined surgery. She has been treated with letrozole. She was seen as a new patient by oncologist Dr. Justin Crisostomo on 03/09/2023 who rec she resume the letrozole, which had been stopped 09/2022 for unknown reasons. Chronic anticoagulation Combined systolic and diastolic congestive heart failure Dementia, senile with delusions Hyperlipidemia Hypertension Paroxysmal atrial fibrillation Type 2 diabetes mellitus Valvular heart disease Surgical History Surgical History History of aortic valve replacement with bioprosthetic valve History of left atrial appendage closure History of mitral valve replacement with bioprosthetic valve Family History Family History Mother Heart disease Father Cancer Sibling Cancer Social History Social History Social History: Healthcare power of securities attorney: Camilo Rosa, niece. Code status: Full code. Smoking status: Never smoker Second hand tobacco smoke exposure: No Alcohol intake: never Substance use: never Substance use type: does not use Do You Feel Safe in your Home?: Yes Lack of Transportation: No Lack of Food: Never True Current Housing: I Have Housing Concerned About Future Housing: No Difficulty Paying Gas/Electric Bills: No Difficulty Paying for Meds: No Currently Unemployed: No Education: High School Diploma/GED Difficulty w/
[2023-06-14 16:54] LABS: Glucose Point of Care 114 mg/dl (65-105)
[2023-06-14] MEDS: traZODone HCL 50 MG TABLET PO (20:03)
[2023-06-15] VITALS (13 sets, daily range): BP systolic 105–115; BP diastolic 68–79; PULSE 71–97; RESP 16–20; TEMP 36.1–36.8; O2SAT 86–99
[2023-06-15 05:01] LABS: Glucose Point of Care 156 mg/dl (65-105)
[2023-06-15 05:59] LABS: Anion Gap 4 mmol/L (4-12); Blood Urea Nitrogen 16 mg/dL (7-17); Calcium 8.2 mg/dL (8.4-10.2); Carbon Dioxide 31 mmol/L (22-30); Chloride 104 mmol/L (98-107); Estimated CRCL calculation 55 ml/min; Estimated Glomerular Filt Rate > 60; Glucose 88 mg/dL (65-110); Magnesium 1.7 mg/dL (1.6-2.3); Potassium 3.3 mmol/L (3.4-5.0); Sodium 139 mmol/L (137-145)
[2023-06-15] MEDS: LEVOTHYROXINE SODIUM 25 MCG TABLET PO (06:46)
[2023-06-15 08:29] LABS: Glucose Point of Care 73 mg/dl (65-105)
[2023-06-15] MEDS: METOPROLOL SUCCINATE EXT REL 100 MG TABCR 200 MG PO (09:13)
[2023-06-15] MEDS: glipiZIDE XL 5 MG TABCR 10 MG PO (09:13)
[2023-06-15] MEDS: PRAVASTATIN SODIUM 20 MG TABLET PO (09:14)
[2023-06-15] MEDS: SODIUM CHLORIDE 1 GM TABLET PO (09:14)
[2023-06-15] MEDS: POTASSIUM CHLORIDE 20 MEQ ER TABLET PO (09:14)
[2023-06-15] MEDS: FUROSEMIDE INJ 40 MG/4 ML VIAL IV PUSH ×2 (09:15→20:47)
[2023-06-15] MEDS: ENOXAPARIN 40 MG/0.4 ML SYRINGE SUB-Q (09:15)
[2023-06-15] MEDS: POTASSIUM CHLORIDE 20 MEQ ER TABLET 40 MEQ PO (09:16)
[2023-06-15 09:35] LABS: Hematocrit 38.4 % (37.0-47.0); Hemoglobin 12.2 g/dL (12.0-15.0); Mean Corpuscular HGB Conc 31.8 g/dl (32-36); Mean Corpuscular Hemoglobin 28.7 pg (26-34); Mean Corpuscular Volume 90.4 fl (80-100); Mean Platelet Volume 10.8 fl (7.4-10.4); Platelet Count Result 164 k/mm3 (150-375); Red Blood Count 4.25 M/mm3 (4.2-5.4); Red Cell Distribution Width 23.8 % (11.5-14.5); White Blood Count 4.5 K/mm3 (4.5-10.0)
[2023-06-15] MEDS: MAGNESIUM SULF 2 GM/WATER 50ML 2 GM/50 ML BAG IVPB (09:41)
[2023-06-15 12:12] LABS: Glucose Point of Care 104 mg/dl (65-105)
--- NOTE | 2023-06-15 15:28 | PM.IMPN ---
Progress Note: A&P Assessment and Plan (1) CHF exacerbation: Code(s): I50.9 - Heart failure, unspecified Status: Acute Assessment and Plan: CC of shortness of breath She has gained 7 lb in the last couple of days and has had increasing oxygen requirements. BNP >66270 Daily weights, heart healthy diet. She will be diuresed with close monitoring of volume status, renal function, and electrolytes. Furosemide 40 mg IV b.i.d. Unfortunately she will have continued readmissions to the hospital if she continues to refuse treatment. This was discussed with her niece and she would like to try again to get the patient on hospice. Care coordination has been consulted for help in this matter. (2) Hypoxia: Code(s): R09.02 - Hypoxemia Status: Acute Assessment and Plan: Patient requiring 1 L Likely due to acute CHF exacerbation. Wean O2 to maintain saturation greater than 90% (3) Combined systolic and diastolic congestive heart failure: Code(s): I50.40 - Unspecified combined systolic (congestive) and diastolic (congestive) heart failure Status: Acute Assessment and Plan: Patient's CHF is poorly controlled. Discussed possible hospice with patient's family. Care coordination consulted. (4) Hypertension: Code(s): I10 - Essential (primary) hypertension Status: Acute Assessment and Plan: Continue home medication. (5) Paroxysmal atrial fibrillation: Code(s): I48.0 - Paroxysmal atrial fibrillation Status: Acute Assessment and Plan: patient controlled with metoprolol (6) Breast cancer: Code(s): C50.919 - Malignant neoplasm of unspecified site of unspecified female breast Status: Acute Subjective Date/time seen: 06/15/23 15:28 Interval history: Patient feeling well today. She is still having some shortness breath but is much improved. She denies chest pain, cough, nausea, vomiting. She still has swelling in the bilateral lower extremities. plan to continue diuresing. Exam Narrative: GENERAL: Comfortable, no acute distress HENMT: moist mucous membranes EYES: EOM intact b/l NECK: no lymphadenopathy RESPIRATORY: distant breath sounds CARDIO: Regular rate and rhythm GI: soft, nontender, bowel sounds present SKIN/EXTREMITIES: bilateral lower extremity edema NEURO: PROM intact, answers questions appropriately, A&O x4 Objective Data Vital Signs Vital Signs: Vital Signs - 24 hr 06/14/23 16:00 06/14/23 20:00 06/14/23 22:29 Temperature 97.2 F L Pulse Rate 88 95 89 Respiratory Rate 18 Blood Pressure 117/72 Pulse Oximetry 97 Oxygen Delivery Oxygen Flow Rate Fraction of Inspired Oxygen 06/15/23 00:00 06/15/23 04:00 06/15/23 06:00 Temperature 97.0 F L Pulse Rate 84 80 71 Respiratory Rate 20 Blood Pressure 105/68 Pulse Oximetry 99 Oxygen Delivery Oxygen Flow Rate Fraction of Inspired Oxygen 06/15/23 07:17 06/15/23 07:30 06/15/23 07:31 Temperature Pulse Rate Respiratory Rate Blood Pressure Pulse Oximetry 95 86 L 93 Oxygen Delivery Nasal Cannula Room Air Nasal Cannula Oxygen Flow Rate 2 1 Fraction of Inspired Oxygen 06/15/23 09:13 06/15/23 08:00 06/15/23 14:00 Temperature 98.2 F Pulse Rate 97 85 Respiratory Rate 16 Blood Pressure 115/79 Pulse Oximetry 95 92 Oxygen Delivery Nasal Cannula Oxygen Flow Rate 1 Fraction of Inspired Oxygen Intake/Output Intake/Output: Intake & Output 06/12/23 06/13/23 06/14/23 06/15/23 23:59 23:59 23:59 23:59 Intake Total 480 880 Output Total 1100 1800 Balance -917 -920 Meds/Results Medications: Active Medications Generic Name Dose Route Start Last Admin Trade Name Freq PRN Reason Stop Dose Admin Acetaminophen 650 mg 06/14/23 15:14 Acetaminophen 325 Mg Tablet PO Q6H PRN Mild Pain (1-3) or Fever Dextrose 12.5 g
[2023-06-15 17:18] LABS: Glucose Point of Care 135 mg/dl (65-105)
[2023-06-15] MEDS: traZODone HCL 50 MG TABLET PO (20:47)
[2023-06-15 21:15] LABS: Glucose Point of Care 142 mg/dl (65-105)
[2023-06-16] VITALS (10 sets, daily range): BP systolic 104–115; BP diastolic 74–89; PULSE 65–94; RESP 16–18; TEMP 36.1–36.6; O2SAT 92–96
[2023-06-16] MEDS: LEVOTHYROXINE SODIUM 25 MCG TABLET PO (06:04)
[2023-06-16 06:21] LABS: Hematocrit 40.3 % (37.0-47.0); Hemoglobin 12.5 g/dL (12.0-15.0); Mean Corpuscular Hemoglobin 26.9 pg (26-34); Mean Corpuscular Volume 86.7 fl (80-100); Mean Platelet Volume 10.1 fl (7.4-10.4); Platelet Count Result 185 k/mm3 (150-375); Red Blood Count 4.65 M/mm3 (4.2-5.4); Red Cell Distribution Width 22.5 % (11.5-14.5); White Blood Count 4.5 K/mm3 (4.5-10.0)
[2023-06-16 06:52] LABS: Anion Gap 3 mmol/L (4-12); Blood Urea Nitrogen 16 mg/dL (7-17); Calcium 8.6 mg/dL (8.4-10.2); Carbon Dioxide 34 mmol/L (22-30); Chloride 102 mmol/L (98-107); Estimated CRCL calculation 48 ml/min; Estimated Glomerular Filt Rate > 60; Glucose 72 mg/dL (65-110); Potassium 3.6 mmol/L (3.4-5.0); Sodium 139 mmol/L (137-145)
[2023-06-16] MEDS: ENOXAPARIN 40 MG/0.4 ML SYRINGE SUB-Q (10:08)
[2023-06-16] MEDS: METOPROLOL SUCCINATE EXT REL 100 MG TABCR 200 MG PO (10:09)
[2023-06-16] MEDS: PRAVASTATIN SODIUM 20 MG TABLET PO (10:09)
[2023-06-16] MEDS: SODIUM CHLORIDE 1 GM TABLET PO (10:10)
[2023-06-16] MEDS: POTASSIUM CHLORIDE 20 MEQ ER TABLET PO (10:10)
[2023-06-16] MEDS: glipiZIDE XL 5 MG TABCR 10 MG PO (10:10)
[2023-06-16 12:18] LABS: Glucose Point of Care 219 mg/dl (65-105)
[2023-06-16] MEDS: INSULIN ASPART (*BKC) 100 UNITS/ML SUB-Q (12:25)
--- NOTE | 2023-06-16 13:14 | PM.IMPN ---
Progress Note: A&P Assessment and Plan (1) CHF exacerbation: Code(s): I50.9 - Heart failure, unspecified Status: Acute Assessment and Plan: CC of shortness of breath She has gained 7 lb in the last couple of days and has had increasing oxygen requirements. BNP >60712 Daily weights, heart healthy diet. She will be diuresed with close monitoring of volume status, renal function, and electrolytes. Furosemide 40 mg IV b.i.d. Unfortunately she will have continued readmissions to the hospital if she continues to refuse treatment. This was discussed with her niece and she would like to try again to get the patient on hospice. Care coordination has been consulted for help in this matter. Patients niece is wanting her to return to rehab side of [facility]. PT and OT ordered. Patient has lost 2.5kg (2) Hypoxia: Code(s): R09.02 - Hypoxemia Status: Acute Assessment and Plan: Patient requiring 1 L Likely due to acute CHF exacerbation. Wean O2 to maintain saturation greater than 90% (3) Combined systolic and diastolic congestive heart failure: Code(s): I50.40 - Unspecified combined systolic (congestive) and diastolic (congestive) heart failure Status: Acute Assessment and Plan: Patient's CHF is poorly controlled. Discussed possible hospice with patient's family. Care coordination consulted. (4) Hypertension: Code(s): I10 - Essential (primary) hypertension Status: Acute Assessment and Plan: Continue home medication. (5) Paroxysmal atrial fibrillation: Code(s): I48.0 - Paroxysmal atrial fibrillation Status: Acute Assessment and Plan: patient controlled with metoprolol (6) Breast cancer: Code(s): C50.919 - Malignant neoplasm of unspecified site of unspecified female breast Status: Acute Subjective Date/time seen: 06/16/23 13:14 Interval history: PT and OT ordered on the patient. Patient sees is wanting her to return to rehab side of her custodial. Her niece is still trying to get the patient set up for hospice but this will take time. PT and OT ordered for the patient. Exam Narrative: GENERAL: Comfortable, no acute distress HENMT: moist mucous membranes EYES: EOM intact b/l NECK: no lymphadenopathy RESPIRATORY: distant breath sounds CARDIO: Regular rate and rhythm GI: soft, nontender, bowel sounds present SKIN/EXTREMITIES: bilateral lower extremity edema NEURO: PROM intact, answers questions appropriately, A&O x4 Objective Data Vital Signs Vital Signs: Vital Signs - 24 hr 06/15/23 14:00 06/15/23 16:00 06/15/23 20:31 Temperature 98.2 F 97.7 F Pulse Rate 85 87 86 Respiratory Rate 16 18 Blood Pressure 115/79 110/76 Pulse Oximetry 92 97 Oxygen Delivery 06/15/23 20:00 06/16/23 00:00 06/16/23 04:00 Temperature Pulse Rate 90 88 78 Respiratory Rate Blood Pressure Pulse Oximetry Oxygen Delivery 06/16/23 05:00 06/16/23 10:09 06/16/23 08:00 Temperature 97 F L Pulse Rate 73 90 Respiratory Rate 18 Blood Pressure 115/74 Pulse Oximetry 93 95 Oxygen Delivery Room Air Intake/Output Intake/Output: Intake & Output 06/13/23 06/14/23 06/15/23 06/16/23 23:59 23:59 23:59 23:59 Intake Total 480 1120 240 Output Total 1100 1800 300 Balance -620 -680 -60 Meds/Results Medications: Active Medications Generic Name Dose Route Start Last Admin Trade Name Freq PRN Reason Stop Dose Admin Acetaminophen 650 mg 06/14/23 15:14 Acetaminophen 325 Mg Tablet PO Q6H PRN Mild Pain (1-3) or Fever Dextrose 12.5 gm 06/14/23 14:56 Dextrose 50% 25 Gm/50 Ml Syringe IV PUSH PRN PRN Hypoglycemia Protocol Enoxaparin Sodium 40 mg 06/15/23 09:00 06/16/23 10:08 Enoxaparin 40 Mg/0.4 Ml Syringe SUB-Q 40 mg DAILY ROSA ISELA Administration Glipizide 10 mg 06/15/23 09:00 06/16/23 10:10 Glip
[2023-06-16 17:09] LABS: Glucose Point of Care 141 mg/dl (65-105)
[2023-06-17] VITALS (10 sets, daily range): BP systolic 132–156; BP diastolic 81–91; PULSE 64–108; RESP 18–21; TEMP 36.3–36.7; O2SAT 92–100
[2023-06-17 05:02] LABS: Hematocrit 44.3 % (37.0-47.0); Hemoglobin 13.6 g/dL (12.0-15.0); Mean Corpuscular HGB Conc 30.7 g/dl (32-36); Mean Corpuscular Hemoglobin 26.7 pg (26-34); Mean Platelet Volume 10.1 fl (7.4-10.4); Platelet Count Result 190 k/mm3 (150-375); Red Blood Count 5.09 M/mm3 (4.2-5.4); Red Cell Distribution Width 22.4 % (11.5-14.5); White Blood Count 5.1 K/mm3 (4.5-10.0)
[2023-06-17 05:15] LABS: Anion Gap 8 mmol/L (4-12); Blood Urea Nitrogen 18 mg/dL (7-17); Calcium 8.9 mg/dL (8.4-10.2); Carbon Dioxide 31 mmol/L (22-30); Chloride 100 mmol/L (98-107); Estimated CRCL calculation 48 ml/min; Estimated Glomerular Filt Rate > 60; Glucose 121 mg/dL (65-110); Potassium 3.7 mmol/L (3.4-5.0); Sodium 139 mmol/L (137-145)
[2023-06-17] MEDS: LEVOTHYROXINE SODIUM 25 MCG TABLET PO (05:29)
[2023-06-17] MEDS: METOPROLOL SUCCINATE EXT REL 100 MG TABCR 200 MG PO (08:20)
[2023-06-17] MEDS: PRAVASTATIN SODIUM 20 MG TABLET PO (08:21)
[2023-06-17] MEDS: ENOXAPARIN 40 MG/0.4 ML SYRINGE SUB-Q (08:21)
[2023-06-17] MEDS: POTASSIUM CHLORIDE 20 MEQ ER TABLET PO (08:21)
[2023-06-17] MEDS: glipiZIDE XL 5 MG TABCR 10 MG PO (08:21)
[2023-06-17] MEDS: SODIUM CHLORIDE 1 GM TABLET PO (08:21)
[2023-06-17 08:30] LABS: Glucose Point of Care 105 mg/dl (65-105)
[2023-06-17 12:18] LABS: Glucose Point of Care 149 mg/dl (65-105)
--- NOTE | 2023-06-17 14:40 | PM.IMPN ---
Progress Note: A&P Assessment and Plan (1) CHF exacerbation: Code(s): I50.9 - Heart failure, unspecified Status: Acute Assessment and Plan: CC of shortness of breath BNP >10914 Daily weights, heart healthy diet. She will be diuresed with close monitoring of volume status, renal function, and electrolytes. Furosemide 40 mg IV b.i.d. Unfortunately she will have continued readmissions to the hospital if she continues to refuse treatment. This was discussed with her niece and she would like to try again to get the patient on hospice. Care coordination has been consulted for help in this matter. Patients niece is wanting her to return to rehab side of [facility]. PT and OT ordered. Patient has lost 2.5kg (2) Hypoxia: Code(s): R09.02 - Hypoxemia Status: Acute Assessment and Plan: Patient requiring 1 L Likely due to acute CHF exacerbation. Wean O2 to maintain saturation greater than 90% (3) Combined systolic and diastolic congestive heart failure: Code(s): I50.40 - Unspecified combined systolic (congestive) and diastolic (congestive) heart failure Status: Acute Assessment and Plan: Patient's CHF is poorly controlled. Discussed possible hospice with patient's family. Care coordination consulted. (4) Hypertension: Code(s): I10 - Essential (primary) hypertension Status: Acute Assessment and Plan: Continue home medication. (5) Paroxysmal atrial fibrillation: Code(s): I48.0 - Paroxysmal atrial fibrillation Status: Acute Assessment and Plan: patient controlled with metoprolol (6) Breast cancer: Code(s): C50.919 - Malignant neoplasm of unspecified site of unspecified female breast Status: Acute Subjective Date/time seen: 06/17/23 14:40 Interval history: Patient doing well today. She is breathing easily. Encourage nurse to wean patient completely off oxygen. If unable to do that she may need home O2 evaluation. Plan is to return to SNF. will give 1 more day of IV diuretics. Plan to discharge back to [facility] tomorrow. Exam Narrative: GENERAL: Comfortable, no acute distress HENMT: moist mucous membranes EYES: EOM intact b/l NECK: no lymphadenopathy RESPIRATORY: distant breath sounds CARDIO: Regular rate and rhythm GI: soft, nontender, bowel sounds present SKIN/EXTREMITIES: bilateral lower extremity edema NEURO: PROM intact, answers questions appropriately, A&O x4 Objective Data Vital Signs Vital Signs: Vital Signs - 24 hr 06/16/23 14:57 06/16/23 16:00 06/16/23 20:45 Temperature 97.1 F L Pulse Rate 87 65 Respiratory Rate 18 Blood Pressure 104/89 Pulse Oximetry 92 Oxygen Delivery Room Air 06/16/23 20:00 06/16/23 20:00 06/17/23 00:00 Temperature Pulse Rate 93 90 Respiratory Rate Blood Pressure Pulse Oximetry Oxygen Delivery Room Air 06/17/23 04:07 06/17/23 04:00 06/17/23 08:20 Temperature 97.8 F Pulse Rate 64 92 94 Respiratory Rate 18 Blood Pressure 156/86 H Pulse Oximetry 95 Oxygen Delivery 06/17/23 08:00 06/17/23 14:00 Temperature 98.1 F Pulse Rate 86 85 Respiratory Rate 20 Blood Pressure 149/81 H Pulse Oximetry 92 Oxygen Delivery Intake/Output Intake/Output: Intake & Output 06/14/23 06/15/23 06/16/23 06/17/23 23:59 23:59 23:59 23:59 Intake Total 480 1120 460 490 Output Total 1100 1800 300 Balance -620 -680 160 490 Meds/Results Medications: Active Medications Generic Name Dose Route Start Last Admin Trade Name Freq PRN Reason Stop Dose Admin Acetaminophen 650 mg 06/14/23 15:14 Acetaminophen 325 Mg Tablet PO Q6H PRN Mild Pain (1-3) or Fever Dextrose 12.5 gm 06/14/23 14:56 Dextrose 50% 25 Gm/50 Ml Syringe IV PUSH PRN PRN Hypoglycemia Protocol Enoxaparin Sodium 40 mg 06/15/23 09:00 06/17/23 08:21 Enoxaparin 40 Mg/0.4
[2023-06-17 17:15] LABS: Glucose Point of Care 136 mg/dl (65-105)
[2023-06-17] MEDS: FUROSEMIDE INJ 40 MG/4 ML VIAL IV PUSH (17:28)
[2023-06-17] MEDS: traZODone HCL 50 MG TABLET PO (22:05)
[2023-06-18] VITALS: PULSE 96
[2023-06-18 04:00] VITALS: PULSE 80
[2023-06-18] MEDS: ACETAMINOPHEN 325 MG TABLET 650 MG PO (04:47)
[2023-06-18] MEDS: LEVOTHYROXINE SODIUM 25 MCG TABLET PO (04:53)
[2023-06-18 05:49] LABS: Hematocrit 45.1 % (37.0-47.0); Hemoglobin 14.1 g/dL (12.0-15.0); Mean Corpuscular HGB Conc 31.3 g/dl (32-36); Mean Corpuscular Hemoglobin 27.4 pg (26-34); Mean Corpuscular Volume 87.6 fl (80-100); Mean Platelet Volume 10.3 fl (7.4-10.4); Platelet Count Result 209 k/mm3 (150-375); Red Blood Count 5.15 M/mm3 (4.2-5.4); Red Cell Distribution Width 23.2 % (11.5-14.5); White Blood Count 5.6 K/mm3 (4.5-10.0)
[2023-06-18 05:59] LABS: Anion Gap 5 mmol/L (4-12); Blood Urea Nitrogen 21 mg/dL (7-17); Calcium 8.7 mg/dL (8.4-10.2); Carbon Dioxide 31 mmol/L (22-30); Chloride 98 mmol/L (98-107); Estimated CRCL calculation 43 ml/min; Estimated Glomerular Filt Rate 60; Glucose 94 mg/dL (65-110); Potassium 3.7 mmol/L (3.4-5.0); Sodium 134 mmol/L (137-145)
[2023-06-18 06:00] VITALS: BP 126/85; PULSE 81; RESP 21; TEMP 36.6; O2SAT 100
[2023-06-18 07:24] LABS: Glucose Point of Care 156 mg/dl (65-105)
[2023-06-18 08:00] VITALS: PULSE 100
[2023-06-18 10:47] LABS: SARS-CoV-2 RNA PCR Negative (Negative)
--- NOTE | 2023-06-18 11:22 | PC.NURSE ---
Patient refuses all PO and IV medications this morning, as well as refusing to have accu checks taken.
[2023-06-18 12:00] VITALS: PULSE 78
--- NOTE | 2023-06-18 12:20 | PM.DS ---
DS: Admitting Diagnosis Discharge Date 06/18/23 Admitting Diagnosis CHF exacerbation DS: Discharge Diagnosis Discharge Diagnosis (1) CHF exacerbation: Code(s): I50.9 - Heart failure, unspecified Status: Acute (2) Hypoxia: Code(s): R09.02 - Hypoxemia Status: Acute (3) Combined systolic and diastolic congestive heart failure: Code(s): I50.40 - Unspecified combined systolic (congestive) and diastolic (congestive) heart failure Status: Acute (4) Hypertension: Code(s): I10 - Essential (primary) hypertension Status: Acute (5) Paroxysmal atrial fibrillation: Code(s): I48.0 - Paroxysmal atrial fibrillation Status: Acute (6) Breast cancer: Code(s): C50.919 - Malignant neoplasm of unspecified site of unspecified female breast Status: Acute DS: Summary Hospital Course Hospital Course: This is a 77-year-old female with dementia with delusions, paroxysmal atrial fibrillation no longer on anticoagulation, valvular heart disease status post bioprosthetic aortic and mitral valve replacements, combined systolic and diastolic congestive heart failure, pulmonary hypertension, stage IV breast cancer, iron deficiency anemia, type 2 diabetes mellitus, and hypothyroidism who presented to the emergency department via EMS from [facility] for evaluation of shortness of breath. This will be her 4th admission to the hospital since April 26, 2023 after presenting with similar complaints. During her last stay her niece met with [facility] hospice and unfortunately there were issues getting her set up with hospice and was unable to be done. according the knees is an insurance problem. She is still working out await to get the patient on hospice And are continuing to do so as an outpatient as well. She continues to refuse taking her medications most days. on presentation to the ER she was found to be short of breath and hypoxic. Patient required 3 L oxygen. ProBNP was 23,500. Chest x-ray showing pulmonary edema and stable small pleural effusions. Patient started on IV furosemide 40 mg b.i.d. Patient lost approximately 7 lb during her hospitalization which is approximately what she gained when she came in. Patient states that she always has some edema in her legs. She is not compliant with her medication regimen. Encouraged to continue trying the patient on hospice due to her lack of compliance and stage IV breast cancer. Will recommend increasing furosemide due to patient's extensive swelling. One day discharge labs and vital signs are stable. Time Spent with Patient Time attestation: Total time spent providing and/or coordinating discharge services: Exam Narrative: GENERAL: Comfortable, no acute distress HENMT: moist mucous membranes EYES: EOM intact b/l NECK: no lymphadenopathy RESPIRATORY: distant breath sounds CARDIO: Regular rate and rhythm GI: soft, nontender, bowel sounds present SKIN/EXTREMITIES: bilateral lower extremity edema NEURO: PROM intact, answers questions appropriately, A&O x4 DS: Data Data Completed and Pending Labs on day of discharge: Labs from last 24 hours 06/18/23 06/18/23 06/17/23 09:57 05:23 20:19 WBC 5.6 RBC 5.15 Hgb 14.1 Hct 45.1 MCV 87.6 MCH 27.4 MCHC 31.3 L RDW 23.2 H Plt Count 209 MPV 10.3 Sodium 134 L Potassium 3.7 Chloride 98 Carbon Dioxide 31 H Anion Gap 5 BUN 21 H Creatinine 0.90 Estim Creat Clear Calc 43 Estimated GFR 60 Glucose 94 POC Capillary Glucose 156 H Calcium 8.7 SARS-CoV-2 RNA (RT-PCR) Negative 06/17/23 17:07 WBC RBC Hgb Hct MCV MCH MCHC RDW Plt Count MPV Sodium Potassium Chloride Carbon Dioxide Anion Gap BUN Creatinine Estim Creat Clear Calc Estimated GFR Glucose POC Capillary Glucose 136 H Calcium SARS-CoV-2 RNA (RT-PCR) Discharge Plan Discharge Discharging i
[2023-06-18 13:43] VITALS: BP 109/66; PULSE 82; RESP 18; TEMP 36.4; O2SAT 95
[2023-06-19 07:12] LABS: Glucose Point of Care 117 mg/dl (65-105)
== END 2023-06-18 14:03 | DRG 291 ==
LOC: ANHED 10:23 → ANH3MED 11:56
PROVIDERS: Internal Medicine Critical Care Medicine; Physician Assistant; Admitting Provider Internal Medicine; Emergency Provider Emergency Medicine; PCP Family Medicine; Visit Provider Internal Medicine
DX: I11.0 Hypertensive heart disease with heart failure (principal); I50.43 Acute on chronic combined systolic (congestive) and diastolic (congestive) heart failure; C79.51 Secondary malignant neoplasm of bone; I48.0 Paroxysmal atrial fibrillation; C50.912 Malignant neoplasm of unspecified site of left female breast; E78.5 Hyperlipidemia, unspecified; E11.9 Type 2 diabetes mellitus without complications; F03.90 Unspecified dementia, unspecified severity, without behavioral disturbance, psychotic disturbance, mood disturbance, and anxiety; J44.9 Chronic obstructive pulmonary disease, unspecified; Z79.84 Long term (current) use of oral hypoglycemic drugs; Z79.01 Long term (current) use of anticoagulants; Z95.2 Presence of prosthetic heart valve; Z91.199 Patient's noncompliance with other medical treatment and regimen due to unspecified reason
CPT/HCPCS: 36415; 71046; 80048; 80053; 81001; 82948; 83735; 83880; 85025; 85027; 87086; 87088; 87635; 87637; 93005; 93970; 96372; 96374; 96375; 97110; 97161; 97166; 97530; 97535; 99285; A9270; G0378; J1650; J1815; J1940; J3475

== ENCOUNTER 2023-07-03 00:32 | Emergency (ER) | payer MEDICARE, SELFPAY ==
--- NOTE | ~2023-07-03 | CT_ITS ---
EXAMINATION: CT brain wo con DATE: 07/03/2023 02:24 INDICATION: Head injury. TECHNIQUE: Computed tomography (CT) of the head was performed without intravenous contrast. The mA wa s adjusted according to patient size. Iterative reconstruction technique was employed. The dose-lengt h product was 681.00 mGy-cm. COMPARISON: Head CT 04/26/2023 FINDINGS: There is an old infarct in the left cerebellum. There is an old infarct in the right cerebe llum. There is an old infarct in the right frontal lobe. There are scattered areas of low attenuation in the cerebral white matter. There is no intracranial hemorrhage, acute infarction, or abnormal int racranial mass lesion. The ventricles are normal in size. There is posterior superior scalp soft tiss ue swelling. There are likely changes of ocular lens replacement surgeries. There is mild mucosal thi ckening in the ethmoid sinuses. The mastoid air cells are normal. IMPRESSION: 1. 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 2. Stable extensive nonspecific cerebral white matter disease, which likely represents chronic small vessel ischemic disease. Reviewed, dictated and finalized at location E. IMPRESSION: 1. 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 2. Stable extensive nonspecific cerebral white matter disease, which likely rep resents chronic small vessel ischemic disease.
--- NOTE | ~2023-07-03 | CT_ITS ---
EXAMINATION: CT cervical spine wo con DATE: 07/03/2023 02:24 INDICATION: Neck injury. TECHNIQUE: Computed tomography (CT) of the cervical spine was performed without intravenous contrast. Automated exposure control and iterative reconstruction technique were employed. The dose-length pro duct was 219.03 mGy-cm. COMPARISON: None FINDINGS: There is smooth septal thickening in the lungs consistent mild pulmonary edema. There is 20 degrees levoscoliosis of the cervicothoracic spine. There is mild kyphosis of cervical spine. Verteb ral body heights are normal. There is mildly decreased disc height at C3-C4 and severely decreased di sc height at C4-C5, C5-C6, and C6-C7. The following disc levels are specifically discussed: C2-C3: There is mild bilateral uncovertebral joint osteoarthritis. There is severe right and mild lef t facet joint osteoarthritis. There is mild right neural foraminal stenosis. There is no central fabiola l stenosis. C3-C4: There is moderate right and mild left uncovertebral joint osteoarthritis. There is severe righ t and mild left facet joint osteoarthritis. There is mild right neural foraminal stenosis. There is n o central canal stenosis. C4-C5: There is severe bilateral uncovertebral joint osteoarthritis. There is mild bilateral facet silvana int osteoarthritis. There is mild bilateral neural foraminal stenosis. There is mild central canal st enosis. C5-C6: There is severe bilateral uncovertebral joint osteoarthritis. There is mild bilateral facet silvana int osteoarthritis. There is mild bilateral neural foraminal stenosis. There is mild central canal st enosis. C6-C7: There is moderate right and severe left uncovertebral joint osteoarthritis. There is mild bila teral facet joint osteoarthritis. There is mild left neural foraminal stenosis. There is mild central canal stenosis. C7-T1: There is no uncovertebral joint osteoarthritis. There is severe bilateral facet joint osteoart hritis. There is mild right neural foraminal stenosis. There is no central canal stenosis. IMPRESSION: 1. No fracture. 2. Severe cervical spondylosis. 3. Cervicothoracic levoscoliosis. 4. Mild pulmonary edema. Reviewed, dictated and finalized at location E.
[2023-07-03 00:33] VITALS: BP 122/94; PULSE 87; RESP 13; TEMP 36.4; O2SAT 98
[2023-07-03 00:52] VITALS: BP 114/74; PULSE 90; PULSE 92; RESP 20; O2SAT 97
--- NOTE | 2023-07-03 01:47 | ED.FALL ---
HPI - Fall General Chief Complaint: Fall Stated Complaint: fall Time Seen by Provider: 07/03/23 01:34 Source: patient Limitations: no limitations History of Present Illness HPI Narrative: Patient is a 77-year-old female presenting to the emergency department complaining of a fall and head injury. Patient does just prior to arrival she was walking around and tripped and started to lose her balance and fell backwards hitting the back of her head, denies loss of consciousness, denies pain. Patient denies pain anywhere, so she has been ambulatory since the event without difficulty. patient denies use of blood thinners. Patient denies any recent illness. Patient denies numbness, weakness, nausea, vomiting, confusion, headache, vision changes, chest pain, difficulty breathing, abdominal pain, urinary incontinence, stool incontinence. Patient's last tetanus shot was approximately 3 years ago. Related Data Home Medications Medication Instructions Recorded Confirmed loratadine 10 mg tablet (Claritin) 10 mg PO DAILY PRN Allergy Symptoms 04/07/23 06/14/23 aspirin 81 mg chewable tablet 81 mg PO PRN PRN Chest Pain 04/26/23 06/14/23 (Aspirin Childrens) glipizide 10 mg tablet, extended 10 mg PO DAILY 06/14/23 06/14/23 release 24 hr metoprolol succinate 25 mg 200 mg PO QAM 06/14/23 06/14/23 tablet,extended release 24 hr (Toprol XL) Allergies Allergy/AdvReac Type Severity Reaction Status Date / Time doxycycline Allergy Unknown Unknown Verified 05/25/23 18:42 codeine AdvReac Unknown Hallucinati Verified 05/25/23 18:42 ng trimethobenzamide AdvReac Unknown Nausea and Verified 05/25/23 18:42 Vomiting Review of Systems Review of Systems: All systems reviewed & are unremarkable except as noted in HPI and below PMFSH Past Medical History Medical History Breast cancer 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 Patient declined surgery. She has been treated with letrozole. She was seen as a new patient by oncologist Dr. Justin Crisostomo on 03/09/2023 who rec she resume the letrozole, which had been stopped 09/2022 for unknown reasons. 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 Code status: Full code. Smoking status: Never smoker Second hand tobacco smoke exposure: No Alcohol intake: never Substance use: never Substance use type: does not use Do You Feel Safe in your Home?: Yes Lack of Transportation: No Lack of Food: Never True Current Housing: I Have Housing Concerned About Future Housing: No Difficulty Paying Gas/Electric Bills: No Difficulty Paying for Meds: No Currently Unemployed: No Education: High School Diploma/GED Difficulty w/ Childcare or Family Care: No Additional living arrangements comments: Currently staying with [id number] in [place]. . She has no children. 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 Spiritual care concerns: No Comments At time of signature, I have reviewed and agree with nursing past medical, surgical, social and family history unless otherwise noted. Please see the nurs
[2023-07-03] MEDS: ACETAMINOPHEN 500 MG TABLET 1000 MG PO (02:00)
[2023-07-03 04:00] VITALS: BP 91/65; PULSE 76; RESP 21; O2SAT 93
[2023-07-03 05:20] VITALS: BP 101/57; PULSE 72; RESP 17; O2SAT 93
== END 2023-07-03 05:39 ==
PROVIDERS: Emergency Provider Student in an Organized Health Care Education/Training Program; PCP Family Medicine
DX: S00.01XA Abrasion of scalp, initial encounter (principal); Z85.3 Personal history of malignant neoplasm of breast; I11.0 Hypertensive heart disease with heart failure; I50.9 Heart failure, unspecified; E78.5 Hyperlipidemia, unspecified; I48.91 Unspecified atrial fibrillation; E11.9 Type 2 diabetes mellitus without complications; Z79.01 Long term (current) use of anticoagulants; W01.0XXA Fall on same level from slipping, tripping and stumbling without subsequent striking against object, initial encounter
CPT/HCPCS: 70450; 72125; 99284; A9270

== ENCOUNTER 2023-07-25 01:58 | Emergency (ER) | payer MEDICARE, SELFPAY ==
--- NOTE | ~2023-07-25 | CT_ITS ---
EXAMINATION: CT brain wo con DATE: 07/25/2023 02:30 INDICATION: Head injury. Fall. TECHNIQUE: Computed tomography (CT) of the head was performed without intravenous contrast. The mA wa s adjusted according to patient size. Iterative reconstruction technique was employed. The dose-lengt h product was 605.33 mGy-cm. COMPARISON: Head CT 07/03/2023 FINDINGS: There is an old infarct in the left cerebellum. There is an old infarct in the right cerebe llum. There are scattered areas of low attenuation in the cerebral white matter. There is an old infa rct in the right basal ganglia. There is chronic cystic encephalomalacia in the right frontal lobe de ep white matter. There is no intracranial hemorrhage, acute infarction, or abnormal intracranial mass lesion. The ventricles are normal in size. The paranasal sinuses are clear. There are likely changes of ocular lens replacement surgeries. The mastoid air cells are normal. There is posterior scalp sof t tissue swelling. There is a sialolith in left parotid gland. IMPRESSION: 1. Old infarcts in the cerebellum, right frontal lobe, and right basal ganglia. 2. Stable extensive nonspecific cerebral white matter disease, which likely represents chronic small vessel ischemic disease. Reviewed, dictated and finalized at location E. IMPRESSION: 1. Old infarcts in the cerebellum, right frontal lobe, and right basal ganglia. 2. Stable extensive nonspecific cerebral white matter disease, which likely rep resents chronic small vessel ischemic disease.
--- NOTE | ~2023-07-25 | CT_ITS ---
EXAMINATION: CT cervical spine wo con DATE: 07/25/2023 02:31 INDICATION: Head injury. TECHNIQUE: Computed tomography (CT) of the cervical spine was performed without intravenous contrast. Automated exposure control and iterative reconstruction technique were employed. The dose-length pro duct was 441.95 mGy-cm. COMPARISON: CT cervical spine 07/03/2023 FINDINGS: There are bilateral pleural effusions. The lung apices demonstrate groundglass opacities an d septal thickening, consistent with pulmonary edema. There is 18 degrees levoscoliosis of the cervic othoracic spine. There is mild kyphosis of cervical spine. Vertebral body heights are normal. There i s mildly decreased disc height at C3-C4 and severely decreased disc height at C4-C5, C5-C6, and C6-C7 . The following disc levels are specifically discussed: C2-C3: There is mild bilateral uncovertebral joint osteoarthritis. There is severe right and mild lef t facet joint osteoarthritis. There is mild right neural foraminal stenosis. There is no central canal stenosis. C3-C4: There is moderate right and mild left uncovertebral joint osteoarthritis. There is severe righ t and mild left facet joint osteoarthritis. There is mild right neural foraminal stenosis. There is n o central canal stenosis. C4-C5: There is severe bilateral uncovertebral joint osteoarthritis. There is mild bilateral facet silvana int osteoarthritis. There is mild bilateral neural foraminal stenosis. There is mild central canal st enosis. C5-C6: There is severe bilateral uncovertebral joint osteoarthritis. There is mild bilateral facet silvana int osteoarthritis. There is mild bilateral neural foraminal stenosis. There is mild central canal st enosis. C6-C7: There is moderate right and severe left uncovertebral joint osteoarthritis. There is mild bila teral facet joint osteoarthritis. There is mild left neural foraminal stenosis. There is mild central canal stenosis. C7-T1: There is no uncovertebral joint osteoarthritis. There is severe bilateral facet joint osteoart hritis. There is mild right neural foraminal stenosis. There is no central canal stenosis. IMPRESSION: 1. No fracture. 2. Severe cervical spondylosis. 3. Cervicothoracic levoscoliosis. 4. Mild pulmonary edema. 5. Moderate-sized pleural effusions. Reviewed, dictated and finalized at location E.
[2023-07-25 01:59] VITALS: BP 128/92; PULSE 107; RESP 26; TEMP 36.6; O2SAT 92
[2023-07-25 02:32] VITALS: PULSE 102
[2023-07-25 03:17] VITALS: BP 120/78; PULSE 98; RESP 18; O2SAT 93
--- NOTE | 2023-07-25 03:18 | ED.GENADULT ---
HPI - General Adult General Chief complaint: Fall Stated complaint: fall History of Present Illness HPI narrative: This is a pleasant 77-year-old female presenting after ground level fall. Patient says she stepped backwards and tripped striking the back of her head. She denies loss of consciousness. She is not on blood thinners. She does have a small abrasion to the back of her head. Her only complaint this time is right-sided neck pain. She denies chest pain difficulty breathing, fevers chills nausea vomiting diarrhea urinary symptoms. Related Data Home Medications Medication Instructions Recorded Confirmed loratadine 10 mg tablet (Claritin) 10 mg PO DAILY PRN Allergy Symptoms 04/07/23 06/14/23 aspirin 81 mg chewable tablet 81 mg PO PRN PRN Chest Pain 04/26/23 06/14/23 (Aspirin Childrens) glipizide 10 mg tablet, extended 10 mg PO DAILY 06/14/23 06/14/23 release 24 hr metoprolol succinate 25 mg 200 mg PO QAM 06/14/23 06/14/23 tablet,extended release 24 hr (Toprol XL) Allergies Allergy/AdvReac Type Severity Reaction Status Date / Time doxycycline Allergy Unknown Unknown Verified 05/25/23 18:42 codeine AdvReac Unknown Hallucinati Verified 05/25/23 18:42 ng trimethobenzamide AdvReac Unknown Nausea and Verified 05/25/23 18:42 Vomiting PMFSH Past Medical History Medical History Breast cancer 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 Patient declined surgery. She has been treated with letrozole. She was seen as a new patient by oncologist Dr. Justin Crisostomo on 03/09/2023 who rec she resume the letrozole, which had been stopped 09/2022 for unknown reasons. 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 Code status: Full code. Smoking status: Never smoker Second hand tobacco smoke exposure: No Alcohol intake: never Substance use: never Substance use type: does not use Do You Feel Safe in your Home?: Yes Lack of Transportation: No Lack of Food: Never True Current Housing: I Have Housing Concerned About Future Housing: No Difficulty Paying Gas/Electric Bills: No Difficulty Paying for Meds: No Currently Unemployed: No Education: High School Diploma/GED Difficulty w/ Childcare or Family Care: No Additional living arrangements comments: Currently staying with [id number] in [place]. . She has no children. 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 Spiritual care concerns: No Exam Narrative: APPEARANCE: No apparent distress. A&O x4 Head: Small abrasion to the posterior scalp not requiring repair EYES: EOMI, NOSE: Atraumatic NECK: Trachea midline RESPIRATORY: No increased rate of breathing, scattered crackles, no respiratory distress ABDOMINAL: Non-distended MUSCULOSKELETAl: head to toe trauma exam performed with no injuries outside of the abrasion to the back and scalp NEURO: Alert. Cranial nerves 2-12 grossly intact. moving4/ 4 extremities SKIN:: Warm, dry. Normal color PSYCHIATRIC: Normal affect Course Vital Signs Vital signs: Vital Signs Temperature 97.8 F 07/25/23 01:59
[2023-07-25] MEDS: ACETAMINOPHEN 500 MG TABLET 1000 MG PO (03:25)
== END 2023-07-25 04:17 ==
PROVIDERS: Emergency Provider Emergency Medicine; PCP Family Medicine
DX: S00.01XA Abrasion of scalp, initial encounter (principal); Z85.3 Personal history of malignant neoplasm of breast; Z79.01 Long term (current) use of anticoagulants; I11.0 Hypertensive heart disease with heart failure; I50.9 Heart failure, unspecified; F03.90 Unspecified dementia, unspecified severity, without behavioral disturbance, psychotic disturbance, mood disturbance, and anxiety; I48.91 Unspecified atrial fibrillation; E11.9 Type 2 diabetes mellitus without complications; E78.5 Hyperlipidemia, unspecified; W01.0XXA Fall on same level from slipping, tripping and stumbling without subsequent striking against object, initial encounter
CPT/HCPCS: 70450; 72125; 99284; A9270